=== PATIENT | female | born 1990 | race Caucasian/White ===

== ENCOUNTER 2019-02-18 16:15 | Emergency (ER) | payer SELFPAY ==
--- NOTE | 2019-02-18 16:47 | EDM.PDOC ---
ED HPI GENERAL MEDICAL PROBLEM - General Chief Complaint: Eye Problems Stated Complaint: BITE ON STOMACH, AND EYE COMPLAINTS Time Seen by Provider: 02/18/19 16:41 - History of Present Illness INITIAL COMMENTS - FREE TEXT/NARRATIVE: HISTORY AND PHYSICAL: History of present illness: Patient 28-year-old female presents with a concern of right eyelid swelling and an area of erythema on her stomach possibly due to insect bite. She denies fever chills nausea vomiting or other complaints Review of systems: As per history of present illness and below otherwise all systems reviewed and negative. Past medical history: As per history of present illness and as reviewed below otherwise noncontributory. Surgical history: As per history of present illness and as reviewed below otherwise noncontributory. Social history: No reported history of drug or alcohol abuse. Family history: As per history of present illness and as reviewed below otherwise noncontributory. Physical exam: HEENT: Atraumatic, normocephalic, pupils reactive, patient is known to have some swelling of her upper lid more medial aspect possible early hordeolum negative for conjunctival pallor or scleral icterus, mucous membranes moist, throat clear, neck supple, nontender, trachea midline. Lungs: Clear to auscultation, breath sounds equal bilaterally, chest nontender. Heart: S1S2, regular, negative for clicks, rubs, or JVD. Abdomen: Soft, nondistended, nontender. Negative for masses or hepatosplenomegaly. Negative for costovertebral tenderness. Patient is an area approximately 4 cm of superficial erythema and warmth infraumbilical region of her abdomen no fluctuance no induration Pelvis: Stable nontender. Genitourinary: Deferred. Rectal: Deferred. Extremities: Atraumatic, negative for cords or calf pain. Neurovascular unremarkable. Neuro: Awake, alert, oriented. Cranial nerves II through XII unremarkable. Cerebellum unremarkable. Motor and sensory unremarkable throughout. Exam nonfocal. Diagnostics: None Therapeutics: None Impression: #1 blepharitis rule out early hordeolum #2 superficial cellulitis abdominal wall Definitive disposition and diagnosis as appropriate pending reevaluation and review of above. Right Eye Pain Score (Numeric/FACES): 4 - Related Data Allergies Allergy/AdvReac Type Severity Reaction Status Date / Time No Known Allergies Allergy Verified 02/18/19 16:34 Home Meds: Home Meds . [No Known Home Meds] 02/18/19 [History] Past Medical History - Past Health History Medical/Surgical History: Denies Medical/Surgical History - Infectious Disease History Infectious Disease History: Reports: Chicken Pox Social & Family History - Family History Family Medical History: Noncontributory - Tobacco Use Smoking Status *Q: Current Every Day Smoker Years of Tobacco use: 10 Packs/Tins Daily: 0.5 - Recreational Drug Use Recreational Drug Use: Yes Drug Use in Last 12 Months: Yes Recreational Drug Type: Reports: Marijuana/Hashish Recreational Drug Use Frequency: Daily ED ROS GENERAL - Review of Systems Review Of Systems: ROS reveals no pertinent complaints other than HPI. ED EXAM GENERAL W FULL EYE - Physical Exam Exam: See Below (See dictation) Course - Vital Signs Last Recorded V/S: Last Vital Signs Temp 36.4 C 02/18/19 16:30 Pulse 119 H 02/18/19 16:30 Resp 18 02/18/19 16:30 BP 136/82 02/18/19 16:30 Pulse Ox 99 02/18/19 16:30 Departure - Departure Time of Disposition: 16:46 Disposition: Home, Self-Care 01 Condition: Good Clinical Impression: Blepharitis, Cellulitis - Discharge Information Referrals: PCP,Unknown [Primary Care Provider] - Additional Instructions: The following information is given to patients seen in the emergency department who are being discharged to home. This information is to outline your options for follow-up care. We provide all patients seen in our emergency department with a follow-up referral. The need for follow-up, as well as the timing and circumstances, are variable depending upon the specifics of your emergency department visit. If you don't have a primary care physician on staff, we will provide you with a referral. We always advise you to contact your personal physician following an emergency department visit to inform them of the circumstance of the visit and for follow-up with them and/or the need for any referrals to a consulting specialist. The emergency department will also refer you to a specialist when appropriate. This referral assures that you have the opportunity for followup care with a specialist. All of these measure are taken in an effort to provide you with optimal care, which includes your followup. Under all circumstances we always encourage you to contact your private physician who remains a resource for coordinating your care. When calling for followup care, please make the office aware that this follow-up is from your recent emergency room visit. If for any reason you are refused follow-up, please contact the [facility] emergency department at and asked to speak to the emergency department charge nurse. JEMAL [facility] [place] [id number] Erythromycin as prescribed Bactrim as prescribed follow-up primary medical doctor and/or clinic return as needed as discussed here
== END 2019-02-18 17:00 | disposition home or self-care (01) ==
LOC: MW.ED 16:15
DX: H01.001 Unspecified blepharitis right upper eyelid (principal); L03.311 Cellulitis of abdominal wall; F17.210 Nicotine dependence, cigarettes, uncomplicated
CPT/HCPCS: 99283

== ENCOUNTER 2019-02-22 11:09 | Inpatient (IN) | payer OTHER ==
[2019-02-22] MEDS ORDERED: Morphine 2 MG/ML Syringe IVPUSH ONE (11:29)
--- NOTE | 2019-02-22 11:32 | EDM.PDOC ---
ED HPI GENERAL MEDICAL PROBLEM - General Chief Complaint: Skin Complaint Stated Complaint: bite on stomach Time Seen by Provider: 02/22/19 11:30 Source of Information: Reports: Patient - History of Present Illness INITIAL COMMENTS - FREE TEXT/NARRATIVE: HISTORY AND PHYSICAL: History of present illness: [Patient presents with what she reports as a bug bite on her abdomen below her navel she was started on Bactrim double strength by mouth twice a day on Thursday as the lesion was quite small and has worsened to a cellulitis that includes approximately 1 ft. of abdominal wall there is induration around the small hole just below the umbilicus otherwise redness and tenderness I did delineate the lesion with a skin pen there is a focal area of induration around the central nidus approximately 2 inch in diameter the entire cellulitic lesion is 12 inches in diameter there is no fluctuance was able to express some bloody discharge however no exudates or did take a wound culture of this material No fever nausea vomiting chills sweats ] Review of systems: As per history of present illness and below otherwise all systems reviewed and negative. Past medical history: As per history of present illness and as reviewed below otherwise noncontributory. Surgical history: As per history of present illness and as reviewed below otherwise noncontributory. Social history: No reported history of drug or alcohol abuse. Family history: As per history of present illness and as reviewed below otherwise noncontributory. Physical exam: HEENT: Atraumatic, normocephalic, pupils reactive, negative for conjunctival pallor or scleral icterus, mucous membranes moist, throat clear, neck supple, nontender, trachea midline. Lungs: Clear to auscultation, breath sounds equal bilaterally, chest nontender. Heart: S1S2, regular, negative for clicks, rubs, or JVD. Abdomen: Soft, nondistended, nontender. Negative for masses or hepatosplenomegaly. Negative for costovertebral tenderness. Pelvis: Stable nontender. Genitourinary: Deferred. Rectal: Deferred. Extremities: Atraumatic, negative for cords or calf pain. Neurovascular unremarkable. Neuro: Awake, alert, oriented. Cranial nerves II through XII unremarkable. Cerebellum unremarkable. Motor and sensory unremarkable throughout. Exam nonfocal. Esha as per history of present illness Diagnostics: [ CBC CMP UA lactic acid whole blood, blood cultures 2 ] wound culture Therapeutics: [ vancomycin Cleocin ]Morphine Impression: [ cellulitis -abdomen Failed conservative management ] Definitive disposition and diagnosis as appropriate pending reevaluation and review of above. - Related Data Allergies Allergy/AdvReac Type Severity Reaction Status Date / Time No Known Allergies Allergy Verified 02/22/19 11:24 Past Medical History - Past Health History Medical/Surgical History: Denies Medical/Surgical History - Infectious Disease History Infectious Disease History: Reports: Chicken Pox Social & Family History - Family History Family Medical History: Noncontributory ED ROS GENERAL - Review of Systems Review Of Systems: See Below ED EXAM, SKIN/RASH Exam: See Below Course - Orders/Labs/Meds Orders: Active Orders 24 hr Category Date Time Status CBC WITH AUTO DIFF [HEME] Stat Lab 02/22/19 11:29 Ordered COMPREHENSIVE METABOLIC PN,CMP [CHEM] Stat Lab 02/22/19 11:29 Ordered CULTURE BLOOD [BC] Stat Lab 02/22/19 11:29 Ordered CULTURE BLOOD [BC] Stat Lab 02/22/19 11:29 Ordered LACTIC ACID,WHOLE BLOOD [BG] Stat Lab 02/22/19 11:29 Ordered Clindamycin Phosphate [Cleocin] 300 mg Med 02/22/19 11:29 Ordered Sodium Chloride 0.9% [Normal Saline] 50 ml IV ONETIME Morphine Med 02/22/19 11:29 Once 2 mg IVPUSH ONETIME ONE Sodium Chloride 0.9% [Normal Saline] 1,000 ml Med 02/22/19 11:30 Ordered IV STAT Vancomycin [Vancocin] 1 gm Med 02/22/19 11:29 Ordered Sodium Chloride 0.9% [Normal Saline] 250 ml IV ONETIME Blood Culture x2 Reflex Set [OM.PC] Stat Oth 02/22/19 11:29 Ordered Departure - Departure Time of Disposition: 11:32 Disposition: Admitted As Inpatient 64 Condition: Fair Clinical Impression: Cellulitis - Discharge Information Referrals: PCP,Unknown [Primary Care Provider] - - My Orders Last 24 Hours: My Active Orders 02/22/19 11:29 CBC WITH AUTO DIFF [HEME] Stat COMPREHENSIVE METABOLIC PN,CMP [CHEM] Stat CULTURE BLOOD [BC] Stat CULTURE BLOOD [BC] Stat LACTIC ACID,WHOLE BLOOD [BG] Stat Clindamycin Phosphate [Cleocin] 300 mg Sodium Chloride 0.9% [Normal Saline] 50 ml IV ONETIME Morphine 2 mg IVPUSH ONETIME ONE Vancomycin [Vancocin] 1 gm Sodium Chloride 0.9% [Normal Saline] 250 ml IV ONETIME Blood Culture x2 Reflex Set [OM.PC] Stat 02/22/19 11:30 Sodium Chloride 0.9% [Normal Saline] 1,000 ml IV STAT - Assessment/Plan Last 24 Hours: My Active Orders 02/22/19 11:29 CBC WITH AUTO DIFF [HEME] Stat COMPREHENSIVE METABOLIC PN,CMP [CHEM] Stat CULTURE BLOOD [BC] Stat CULTURE BLOOD [BC] Stat LACTIC ACID,WHOLE BLOOD [BG] Stat Clindamycin Phosphate [Cleocin] 300 mg Sodium Chloride 0.9% [Normal Saline] 50 ml IV ONETIME Morphine 2 mg IVPUSH ONETIME ONE Vancomycin [Vancocin] 1 gm Sodium Chloride 0.9% [Normal Saline] 250 ml IV ONETIME Blood Culture x2 Reflex Set [OM.PC] Stat 02/22/19 11:30 Sodium Chloride 0.9% [Normal Saline] 1,000 ml IV STAT
[2019-02-22] MEDS ORDERED: Clindamycin Phosphate in D5W 300 MG in Premix Bag 1 BAG IV ONE ×2 (11:45)
[2019-02-22] MEDS: Sodium Chloride 0.9% 1,000 ML IV SCH ×2 (12:05→23:43)
[2019-02-22 12:46] LABS: CHLORIDE,CL 104 mmol/L (98-107); SODIUM,NA 138 mmol/L (136-145)
[2019-02-22] MEDS ORDERED: Ondansetron 4 MG/2 ML SDV IVPUSH PRN (13:51)
[2019-02-22] MEDS: oxyCODONE 5 MG Tab PO PRN ×2 (14:28→20:28)
[2019-02-22] MEDS: Piperacillin/Tazobactam 3.375 GM in Sodium Chloride 0.9% 50 ML IV SCH ×2 (14:30→20:29)
[2019-02-22] MEDS: Enoxaparin 40 MG/0.4 ML Syringe SUBCUT SCH (14:32)
--- NOTE | 2019-02-22 14:35 | PCM.HP ---
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 She reports she was seen on Thursday in the ED and placed on Bactrim for cellulitis, she reports it has not gotten any better and has only worsened. She reports the pain is nearly 10/10 to abdominal fold. She states this started with a small region just underneath her umbilicus that was red and tender. No trauma or injury. No obvious bite. She reports some blood drainage started from it today. Reports fevers and chills at home. No chest pain or SOB. No urinary concerns or black or bloody BMs. She reports she smokes 1/2 ppd of cigarettes, smokes marijuana daily and rare drinks alcohol. In the ED leukocytosis noted at 14,100, lactate 1.6, Na 138, K+ 5.1 BC obtained as well as wound cultures. She was treated with Vancomycin and Clindamycin in the ED along with IVFs. She was admitted inpatient secondary to abdominal cellulitis and possible abscess. lower abd Pain Score (Numeric/FACES): 9 - Related Data Allergies/Adverse Reactions: Allergies Allergy/AdvReac Type Severity Reaction Status Date / Time No Known Allergies Allergy Verified 02/22/19 11:24 Past Medical History - Past Health History Medical/Surgical History: Denies Medical/Surgical History Cardiovascular History: Reports: None. Denies: Afib, Blood Clots/VTE/DVT, High Cholesterol, Hypertension Respiratory History: Reports: None. Denies: Asthma Gastrointestinal History: Reports: None. Denies: GERD Musculoskeletal History: Reports: None Neurological History: Reports: None Psychiatric History: Reports: None Endocrine/Metabolic History: Reports: Obesity/BMI 30+. Denies: Diabetes, Type II, Hypothyroidism - Infectious Disease History Infectious Disease History: Reports: Chicken Pox, MRSA Social & Family History - Family History Family Medical History: Noncontributory - Tobacco Use Smoking Status *Q: Current Every Day Smoker Years of Tobacco use: 10 Packs/Tins Daily: 0.5 - Caffeine Use Caffeine Use: Reports: Coffee, Soda Caffeine Use Comment: 2-3 cans of soda/day - Alcohol Use Alcohol Use Frequency: Rarely - Recreational Drug Use Recreational Drug Use: Yes Drug Use in Last 12 Months: Yes Recreational Drug Type: Reports: Marijuana/Hashish Recreational Drug Use Frequency: Daily H&P Review of Systems - Review of Systems: Review Of Systems: See Below General: Reports: Fever, Chills, Malaise HEENT: Denies: Headaches, Sinus Congestion Pulmonary: Reports: No Symptoms. Denies: Shortness of Breath, Cough, Sputum Cardiovascular: Reports: No Symptoms. Denies: Chest Pain, Edema Gastrointestinal: Reports: No Symptoms. Denies: Abdominal Pain, Black Stool, Bloody Stool, Constipation, Diarrhea Genitourinary: Reports: No Symptoms. Denies: Dysuria, Frequency, Burning Musculoskeletal: Reports: No Symptoms. Denies: Neck Pain Skin: Reports: Erythema (abdominal fold) Psychiatric: Reports: No Symptoms Hematologic/Lymphatic: Reports: No Symptoms Immunologic: Reports: No Symptoms Exam - Exam Exam: See Below - Vital Signs Vital Signs: Last Vital Signs Temp 101 F H 02/22/19 12:38 Pulse 91 02/22/19 12:38 Resp 24 H 02/22/19 12:38 BP 140/67 02/22/19 12:38 Pulse Ox 100 02/22/19 13:49 Weight: 111.629 kg - Exam General: Alert, Oriented, Cooperative HEENT: Conjunctiva Clear, Mucosa Moist & [place], Posterior Pharynx Clear, Other ( multiple broken, decaying teeth. ) Neck: Supple Lungs: Clear to Auscultation, Normal Respiratory Effort Cardiovascular: Regular Rate, Regular Rhythm, Normal S1, Normal S2 GI/Abdominal Exam: Normal Bowel Sounds, Soft, Non-Tender (lower abdominal fold very tender) Extremities: Normal Inspection, Normal Range of Motion, Non-Tender, No Pedal Edema, Normal Capillary Refill Skin: Wound (Just below mbilius, small area of fluctuance noted, with surround induration of approximately 2 in. dusky, center noted. Old blood drainage noted , unable to express further drainage. Lower abdominal fold is erythematous and hot to touch.) Neuro Extensive - Mental Status: Alert, Oriented x3, Normal Mood/Affect Neuro Extensive - Motor, Sensory, Reflexes: CN II-XII Intact Psychiatric: Alert, Normal Affect, Normal Mood - Patient Data Lab Results Last 24 hrs: Laboratory Results - last 24 hr 02/22/19 02/22/19 02/22/19 Range/Units 11:56 12:06 12:06 WBC 14.10 H (4.0-11.0) K/uL RBC 4.64 (4.30-5.90) M/uL Hgb 14.3 (12.0-16.0) g/dL Hct 42.1 (36.0-46.0) % MCV 90.7 (80.0-98.0) fL MCH 30.8 (27.0-32.0) pg MCHC 34.0 (31.0-37.0) g/dL RDW Std Deviation 43.0 (28.0-62.0) fl RDW Coeff of Boby 13 (11.0-15.0) % Plt Count 276 (150-400) K/uL MPV 10.90 (7.40-12.00) fL Neut % (Auto) 70.4 (48.0-80.0) % Lymph % (Auto) 14.0 L (16.0-40.0) % [place] % (Auto) 14.7 (0.0-15.0) % Eos % (Auto) 0.8 (0.0-7.0) % Baso % (Auto) 0.1 (0.0-1.5) % Neut # (Auto) 9.9 H (1.4-5.7) K/uL Lymph # (Auto) 2.0 (0.6-2.4) K/uL [place] # (Auto) 2.1 H (0.0-0.8) K/uL Eos # (Auto) 0.1 (0.0-0.7) K/uL Baso # (Auto) 0.0 (0.0-0.1) K/uL Nucleated RBC % 0.0 /100WBC Nucleated RBCs # 0 K/uL Lactate 1.6 (0.20-2.00) mmol/L Sodium 138 (136-145) mmol/L Potassium 5.1 (3.5-5.1) mmol/L Chloride 104 (98-107) mmol/L Carbon Dioxide 22.6 (21.0-32.0) mmol/L BUN 7 (7.0-18.0) mg/dL Creatinine 0.9 (0.6-1.0) mg/dL Est Cr Clr Drug Dosing 75.61 mL/min Estimated GFR (MDRD) > 60.0 ml/min Glucose 97 (74-106) mg/dL Calcium 8.7 (8.5-10.1) mg/dL Total Bilirubin 0.4 (0.2-1.0) mg/dL AST 32 (15-37) IU/L ALT 63 (14-63) IU/L Alkaline Phosphatase 68 (46-116) U/L Total Protein 6.9 (6.4-8.2) g/dL Albumin 3.1 L (3.4-5.0) g/dL Globulin 3.8 (2.6-4.0) g/dL Albumin/Globulin Ratio 0.8 L (0.9-1.6) Result Diagrams: 02/22/19 12:06 02/22/19 12:06 Madhu Results Last 24 hrs: Microbiology 02/22/19 12:06 Anaerobic Blood Culture - Final Blood - Venous - Lab Draw 02/22/19 11:56 Anaerobic Blood Culture - Final Blood - Venous *Q Meaningful Use (ADM) - VTE Risk Assess *Q Each Risk Factor Represents 1 Point: Obesity ( BMI > 25 kg/m2) Total Score 1 Point Risk Factors: 1 Each Risk Factor Represents 2 Points: None Total Score 2 Point Risk Factors: 0 Each Risk Factor Represents 3 Points: None Total Score 3 Point Risk Factors: 0 Each Risk Factor Represents 5 Points: None Total Score 5 Point Risk Factors: 0 Venous Thromboembolism Risk Factor Score *Q: 1 - Problem List (1) Cellulitis SNOMED Code(s): 383790869 ICD Code: L03.90 - CELLULITIS, UNSPECIFIED Status: Acute Current Visit: Yes Qualifiers: Site of cellulitis: trunk Site of cellulitis of trunk: abdominal wall Qualified Code(s): L03.311 - Cellulitis of abdominal wall (2) Tobacco abuse SNOMED Code(s): 586071946 ICD Code: Z72.0 - TOBACCO USE Status: Chronic Current Visit: Yes (3) Obesity SNOMED Code(s): 461446742, 469843975 ICD Code: E66.9 - OBESITY, UNSPECIFIED Status: Chronic Current Visit: Yes Problem List Initiated/Reviewed/Updated: Yes Orders Last 24hrs: Active Orders 24 hr Category Date Time Status Admission Status [Patient Status] [ADT] Stat ADT 02/22/19 11:36 Active Intake and Output [RC] Q12H Care 02/22/19 13:51 Active Notify Provider Consults [RC] ASDIRECTED Care 02/22/19 14:21 Ordered Oxygen Therapy [RC] PRN Care 02/22/19 13:44 Active Up With Assistance [RC] ASDIRECTED Care 02/22/19 13:49 Active VTE/DVT Education [RC] PER UNIT ROUTINE Care 02/22/19 13:44 Active Vital Signs [RC] Q4H Care 02/22/19 13:44 Active Consult to Physician [CONS] Routine Cons 02/22/19 14:21 Ordered Regular Diet [DIET] Diet 02/22/19 Lunch Active BASIC METABOLIC PANEL,BMP [CHEM] AM Lab 02/23/19 05:11 Ordered BASIC METABOLIC PANEL,BMP [CHEM] AM Lab 02/24/19 05:11 Ordered BASIC METABOLIC PANEL,BMP [CHEM] AM Lab 02/25/19 05:11 Ordered CBC WITH AUTO DIFF [HEME] AM Lab 02/23/19 05:11 Ordered CBC WITH AUTO DIFF [HEME] AM Lab 02/24/19 05:11 Ordered CBC WITH AUTO DIFF [HEME] AM Lab 02/25/19 05:11 Ordered CULTURE BLOOD [BC] Stat Lab 02/22/19 11:56 Results CULTURE BLOOD [BC] Stat Lab 02/22/19 12:06 Results CULTURE WOUND [RM] Stat Lab 02/22/19 11:51 Received Acetaminophen [Tylenol] Med 02/22/19 13:49 Active 650 mg PO Q4H PRN Enoxaparin [Lovenox] Med 02/22/19 14:00 Active 40 mg SUBCUT Q24H Morphine Med 02/22/19 13:49 Active 2 mg IVPUSH Q2H PRN Ondansetron [Zofran] Med 02/22/19 13:51 Active 4 mg IVPUSH Q4H PRN Pharmacy to Dose - Vancomycin Med 02/22/19 14:00 Active 1 dose .XX ASDIRECTED Piperacillin/Tazobactam [Piperacil-Tazobact] 3.375 gm Med 02/22/19 14:00 Active Sodium Chloride 0.9% [Normal Saline] 50 ml IV Q6H Sodium Chloride 0.9% [Normal Saline] 1,000 ml Med 02/22/19 11:30 Active IV STAT oxyCODONE Med 02/22/19 13:49 Active 5 mg PO Q4H PRN Blood Culture x2 Reflex Set [OM.PC] Stat Oth 02/22/19 11:29 Ordered Resuscitation Status Routine Resus Stat 02/22/19 13:44 Ordered Medication Orders Acetaminophen (Tylenol) 650 mg PO Q4H PRN PRN Reason: Pain (Mild 1-3)/fever Enoxaparin Sodium (Lovenox) 40 mg SUBCUT Q24H [facility] Sodium Chloride (Normal Saline) 1,000 mls @ 125 mls/hr IV STAT [facility] Last Admin: 02/22/19 12:05 Dose: 125 mls/hr Piperacillin Sod/Tazobactam (Sod 3.375 gm/ Sodium Chloride) 50 mls @ 100 mls/ hr IV Q6H [facility] Morphine Sulfate (Morphine) 2 mg IVPUSH Q2H PRN PRN Reason: Pain (severe 7-10) Ondansetron HCl (Zofran) 4 mg IVPUSH Q4H PRN PRN Reason: Nausea Oxycodone HCl (Oxycodone) 5 mg PO Q4H PRN PRN Reason: Pain (moderate 4-6) Vancomycin HCl (Pharmacy To Dose - Vancomycin) 1 dose .XX ASDIRECTED [facility] Assessment/Plan Comment:: This 28 year old female admitted with cellulitis of abdominal fold 1. Cellulitis: Will Continue Vancomycin and Zosyn for now. Consult Dr Short for consultation, consider panniculitis. Will obtain CT of abdomen and pelvis with contrast. BC and wound culture obtained. Morphine and oxycodone for pain control PRN. Continue IVFs. VTE prophylaxis: Lovenox. Dispo: 2-3 days pending improvement. <Santana Lobo M - Last Filed: 02/22/19 17:25> H&P History of Present Illness - General Admit Problem/Dx: Admission Diagnosis/Problem Admission Diagnosis/Problem Cellulitis I have seen and examined to patient independently of Lizzette Walker CNP. I have discussed the case for care of this patient with her. I have reviewed and approve of the plan of care as outlined by JEANETTE. Please see orders. Exam - Vital Signs Vital Signs: Last Vital Signs Temp 38.2 C H 02/22/19 16:00 Pulse 102 H 02/22/19 16:00 Resp 16 02/22/19 16:00 BP 115/60 02/22/19 16:00 Pulse Ox 97 02/22/19 16:00 - Patient Data Lab Results Last 24 hrs: Laboratory Results - last 24 hr 02/22/19 02/22/19 02/22/19 Range/Units 11:56 12:06 12:06 WBC 14.10 H (4.0-11.0) K/uL RBC 4.64 (4.30-5.90) M/uL Hgb 14.3 (12.0-16.0) g/dL Hct 42.1 (36.0-46.0) % MCV 90.7 (80.0-98.0) fL MCH 30.8 (27.0-32.0) pg MCHC 34.0 (31.0-37.0) g/dL RDW Std Deviation 43.0 (28.0-62.0) fl RDW Coeff of Boby 13 (11.0-15.0) % Plt Count 276 (150-400) K/uL MPV 10.90 (7.40-12.00) fL Neut % (Auto) 70.4 (48.0-80.0) % Lymph % (Auto) 14.0 L (16.0-40.0) % [place] % (Auto) 14.7 (0.0-15.0) % Eos % (Auto) 0.8 (0.0-7.0) % Baso % (Auto) 0.1 (0.0-1.5) % Neut # (Auto) 9.9 H (1.4-5.7) K/uL Lymph # (Auto) 2.0 (0.6-2.4) K/uL [place] # (Auto) 2.1 H (0.0-0.8) K/uL Eos # (Auto) 0.1 (0.0-0.7) K/uL Baso # (Auto) 0.0 (0.0-0.1) K/uL Nucleated RBC % 0.0 /100WBC Nucleated RBCs # 0 K/uL Lactate 1.6 (0.20-2.00) mmol/L Sodium 138 (136-145) mmol/L Potassium 5.1 (3.5-5.1) mmol/L Chloride 104 (98-107) mmol/L Carbon Dioxide 22.6 (21.0-32.0) mmol/L BUN 7 (7.0-18.0) mg/dL Creatinine 0.9 (0.6-1.0) mg/dL Est Cr Clr Drug Dosing 75.61 mL/min Estimated GFR (MDRD) > 60.0 ml/min Glucose 97 (74-106) mg/dL Calcium 8.7 (8.5-10.1) mg/dL Total Bilirubin 0.4 (0.2-1.0) mg/dL AST 32 (15-37) IU/L ALT 63 (14-63) IU/L Alkaline Phosphatase 68 (46-116) U/L Total Protein 6.9 (6.4-8.2) g/dL Albumin 3.1 L (3.4-5.0) g/dL Globulin 3.8 (2.6-4.0) g/dL Albumin/Globulin Ratio 0.8 L (0.9-1.6) HCG, Qual (NEG) 02/22/19 Range/Units 12:06 WBC (4.0-11.0) K/uL RBC (4.30-5.90) M/uL Hgb (12.0-16.0) g/dL Hct (36.0-46.0) % MCV (80.0-98.0) fL MCH (27.0-32.0) pg MCHC (31.0-37.0) g/dL RDW Std Deviation (28.0-62.0) fl RDW Coeff of Boby (11.0-15.0) % Plt Count (150-400) K/uL MPV (7.40-12.00) fL Neut % (Auto) (48.0-80.0) % Lymph % (Auto) (16.0-40.0) % [place] % (Auto) (0.0-15.0) % Eos % (Auto) (0.0-7.0) % Baso % (Auto) (0.0-1.5) % Neut # (Auto) (1.4-5.7) K/uL Lymph # (Auto) (0.6-2.4) K/uL [place] # (Auto) (0.0-0.8) K/uL Eos # (Auto) (0.0-0.7) K/uL Baso # (Auto) (0.0-0.1) K/uL Nucleated RBC % /100WBC Nucleated RBCs # K/uL Lactate (0.20-2.00) mmol/L Sodium (136-145) mmol/L Potassium (3.5-5.1) mmol/L Chloride (98-107) mmol/L Carbon Dioxide (21.0-32.0) mmol/L BUN (7.0-18.0) mg/dL Creatinine (0.6-1.0) mg/dL Est Cr Clr Drug Dosing mL/min Estimated GFR (MDRD) ml/min Glucose (74-106) mg/dL Calcium (8.5-10.1) mg/dL Total Bilirubin (0.2-1.0) mg/dL AST (15-37) IU/L ALT (14-63) IU/L Alkaline Phosphatase (46-116) U/L Total Protein (6.4-8.2) g/dL Albumin (3.4-5.0) g/dL Globulin (2.6-4.0) g/dL Albumin/Globulin Ratio (0.9-1.6) HCG, Qual NEGATIVE (NEG) Result Diagrams: 02/22/19 12:06 02/22/19 12:06 Madhu Results Last 24 hrs: Microbiology 02/22/19 12:06 Anaerobic Blood Culture - Final Blood - Venous - Lab Draw 02/22/19 11:56 Anaerobic Blood Culture - Final Blood - Venous Orders Last 24hrs: Active Orders 24 hr Category Date Time Status Admission Status [Patient Status] [ADT] Stat ADT 02/22/19 11:36 Active Intake and Output [RC] Q12H Care 02/22/19 13:51 Active Notify Provider Consults [RC] ASDIRECTED Care 02/22/19 14:21 Active Oxygen Therapy [RC] PRN Care 02/22/19 13:44 Active Up With Assistance [RC] ASDIRECTED Care 02/22/19 13:49 Active VTE/DVT Education [RC] PER UNIT ROUTINE Care 02/22/19 13:44 Active Vital Signs [RC] Q4H Care 02/22/19 13:44 Active Consult to Physician [CONS] Routine Cons 02/22/19 14:21 Active Regular Diet [DIET] Diet 02/22/19 Lunch Active Abdomen Pelvis w Cont [CT] Urgent Exams 02/22/19 14:50 Ordered BASIC METABOLIC PANEL,BMP [CHEM] AM Lab 02/23/19 05:11 Ordered BASIC METABOLIC PANEL,BMP [CHEM] AM Lab 02/24/19 05:11 Ordered BASIC METABOLIC PANEL,BMP [CHEM] AM Lab 02/25/19 05:11 Ordered CBC WITH AUTO DIFF [HEME] AM Lab 02/23/19 05:11 Ordered CBC WITH AUTO DIFF [HEME] AM Lab 02/24/19 05:11 Ordered CBC WITH AUTO DIFF [HEME] AM Lab 02/25/19 05:11 Ordered CULTURE BLOOD [BC] Stat Lab 02/22/19 11:56 Results CULTURE BLOOD [BC] Stat Lab 02/22/19 12:06 Results CULTURE WOUND [RM] Stat Lab 02/22/19 11:51 Received VANCOMYCIN TROUGH [CHEM] Routine Lab 02/23/19 11:00 Ordered Acetaminophen [Tylenol] Med 02/22/19 13:49 Active 650 mg PO Q4H PRN Enoxaparin [Lovenox] Med 02/22/19 14:00 Active 40 mg SUBCUT Q24H Morphine Med 02/22/19 13:49 Active 2 mg IVPUSH Q2H PRN Ondansetron [Zofran] Med 02/22/19 13:51 Active 4 mg IVPUSH Q4H PRN Pharmacy to Dose - Vancomycin Med 02/22/19 14:00 Active 1 dose .XX ASDIRECTED Piperacillin/Tazobactam [Piperacil-Tazobact] 3.375 gm Med 02/22/19 14:00 Active Sodium Chloride 0.9% [Normal Saline] 50 ml IV Q6H Sodium Chloride 0.9% [Normal Saline] 1,000 ml Med 02/22/19 11:30 Active IV STAT Vancomycin 1.5 gm Med 02/22/19 19:30 Active Sodium Chloride 0.9% [Normal Saline] 500 ml IV Q8H oxyCODONE Med 02/22/19 13:49 Active 5 mg PO Q4H PRN Blood Culture x2 Reflex Set [OM.PC] Stat Oth 02/22/19 11:29 Ordered Resuscitation Status Routine Resus Stat 02/22/19 13:44 Ordered Medication Orders Acetaminophen (Tylenol) 650 mg PO Q4H PRN PRN Reason: Pain (Mild 1-3)/fever Enoxaparin Sodium (Lovenox) 40 mg SUBCUT Q24H [facility] Last Admin: 02/22/19 14:32 Dose: 40 mg Sodium Chloride (Normal Saline) 1,000 mls @ 125 mls/hr IV STAT [facility] Last Admin: 02/22/19 12:05 Dose: 125 mls/hr Piperacillin Sod/Tazobactam (Sod 3.375 gm/ Sodium Chloride) 50 mls @ 100 mls/ hr IV Q6H [facility] Last Admin: 02/22/19 14:30 Dose: 100 mls/hr Vancomycin HCl 1.5 gm/ Sodium (Chloride) 500 mls @ 250 mls/hr IV Q8H [facility] Morphine Sulfate (Morphine) 2 mg IVPUSH Q2H PRN PRN Reason: Pain (severe 7-10) Ondansetron HCl (Zofran) 4 mg IVPUSH Q4H PRN PRN Reason: Nausea Oxycodone HCl (Oxycodone) 5 mg PO Q4H PRN PRN Reason: Pain (moderate 4-6) Last Admin: 02/22/19 14:28 Dose: 5 mg Vancomycin HCl (Pharmacy To Dose - Vancomycin) 1 dose .XX ASDIRECTED [facility]
[2019-02-22] MEDS ORDERED: Iopamidol 755 MG/ML 500 ML Multipack Bottle IVPUSH STA (17:24)
[2019-02-22] MEDS: Morphine 2 MG/ML Syringe IVPUSH PRN ×3 (17:41→23:40)
--- NOTE | 2019-02-22 18:02 | PCM.CONS ---
H&P History of Present Illness - General Date of Service: 02/22/19 Admit Problem/Dx: Admission Diagnosis/Problem Admission Diagnosis/Problem Cellulitis I have seen and examined to patient independently of Lizzette Walker CNP. I have discussed the case for care of this patient with her. I have reviewed and approve of the plan of care as outlined by JEANETTE. Please see orders. Source of Information: Patient History Limitations: Reports: No Limitations - History of Present Illness Initial Comments - Free Text/Narative: 28 year old female who presents with abdominal wall cellulitis and abscess. She first developed redness around the wound on . And then progressively got worse. She was seen in the ER and placed on Bactrim. Despite this the redness swelling warmth and tenderness became worse. She started having a small amount of drainage from the lesion. She has a past medical history significant for MRSA infection of the axilla. She denies drug use other than daily marijuana smoking. She smokes half a pack a day of cigarettes. She is a low-grade fever and a mildly elevated heart rate. Her white blood cell count on admission was 14,000. She she was placed on broad-spectrum antibiotics including vancomycin, Zosyn, and clindamycin. She had a CT the abdomen pelvis which shows cellulitis and possible underlying abscess however this is on personal review and I'm waiting the final radiologist's impression. lower abd Pain Score (Numeric/FACES): 9 - Related Data Allergies/Adverse Reactions: Allergies Allergy/AdvReac Type Severity Reaction Status Date / Time No Known Allergies Allergy Verified 02/22/19 11:24 Past Medical History - Past Health History Medical/Surgical History: Denies Medical/Surgical History Cardiovascular History: Reports: None. Denies: Afib, Blood Clots/VTE/DVT, High Cholesterol, Hypertension Respiratory History: Reports: None. Denies: Asthma Gastrointestinal History: Reports: None. Denies: GERD Musculoskeletal History: Reports: None Neurological History: Reports: None Psychiatric History: Reports: None Endocrine/Metabolic History: Reports: Obesity/BMI 30+. Denies: Diabetes, Type II, Hypothyroidism - Infectious Disease History Infectious Disease History: Reports: Chicken Pox, MRSA Social & Family History - Family History Family Medical History: Noncontributory - Tobacco Use Smoking Status *Q: Current Every Day Smoker Years of Tobacco use: 10 Packs/Tins Daily: 0.5 - Caffeine Use Caffeine Use: Reports: Coffee, Soda Caffeine Use Comment: 2-3 cans of soda/day - Recreational Drug Use Recreational Drug Use: Yes Drug Use in Last 12 Months: Yes Recreational Drug Type: Reports: Marijuana/Hashish Recreational Drug Use Frequency: Daily H&P Review of Systems - Review of Systems: Review Of Systems: ROS reveals no pertinent complaints other than HPI. Exam - Exam Exam: See Below - Vital Signs Vital Signs: Last Vital Signs Temp 38.2 C H 02/22/19 16:00 Pulse 102 H 02/22/19 16:00 Resp 16 02/22/19 16:00 BP 115/60 02/22/19 16:00 Pulse Ox 97 02/22/19 16:00 Weight: 111.629 kg - Exam Quality Assessment: Supplemental Oxygen General: Alert, Oriented HEENT: Conjunctiva Clear, Mucosa Moist & [place], Posterior Pharynx Clear Lungs: Normal Respiratory Effort Cardiovascular: Regular Rate GI/Abdominal Exam: Soft, Other (Warmth tenderness and swelling extending from a lesion just below the umbilicus on the abdominal wall. This area is fluctuant with some dusky tissue overlying it. The area of fluctuance is ~ 1cm) - Patient Data Lab Results Last 24 hrs: Laboratory Results - last 24 hr 02/22/19 02/22/19 02/22/19 Range/Units 11:56 12:06 12:06 WBC 14.10 H (4.0-11.0) K/uL RBC 4.64 (4.30-5.90) M/uL Hgb 14.3 (12.0-16.0) g/dL Hct 42.1 (36.0-46.0) % MCV 90.7 (80.0-98.0) fL MCH 30.8 (27.0-32.0) pg MCHC 34.0 (31.0-37.0) g/dL RDW Std Deviation 43.0 (28.0-62.0) fl RDW Coeff of Boby 13 (11.0-15.0) % Plt Count 276 (150-400) K/uL MPV 10.90 (7.40-12.00) fL Neut % (Auto) 70.4 (48.0-80.0) % Lymph % (Auto) 14.0 L (16.0-40.0) % [place] % (Auto) 14.7 (0.0-15.0) % Eos % (Auto) 0.8 (0.0-7.0) % Baso % (Auto) 0.1 (0.0-1.5) % Neut # (Auto) 9.9 H (1.4-5.7) K/uL Lymph # (Auto) 2.0 (0.6-2.4) K/uL [place] # (Auto) 2.1 H (0.0-0.8) K/uL Eos # (Auto) 0.1 (0.0-0.7) K/uL Baso # (Auto) 0.0 (0.0-0.1) K/uL Nucleated RBC % 0.0 /100WBC Nucleated RBCs # 0 K/uL Lactate 1.6 (0.20-2.00) mmol/L Sodium 138 (136-145) mmol/L Potassium 5.1 (3.5-5.1) mmol/L Chloride 104 (98-107) mmol/L Carbon Dioxide 22.6 (21.0-32.0) mmol/L BUN 7 (7.0-18.0) mg/dL Creatinine 0.9 (0.6-1.0) mg/dL Est Cr Clr Drug Dosing 75.61 mL/min Estimated GFR (MDRD) > 60.0 ml/min Glucose 97 (74-106) mg/dL Calcium 8.7 (8.5-10.1) mg/dL Total Bilirubin 0.4 (0.2-1.0) mg/dL AST 32 (15-37) IU/L ALT 63 (14-63) IU/L Alkaline Phosphatase 68 (46-116) U/L Total Protein 6.9 (6.4-8.2) g/dL Albumin 3.1 L (3.4-5.0) g/dL Globulin 3.8 (2.6-4.0) g/dL Albumin/Globulin Ratio 0.8 L (0.9-1.6) HCG, Qual (NEG) 02/22/19 Range/Units 12:06 WBC (4.0-11.0) K/uL RBC (4.30-5.90) M/uL Hgb (12.0-16.0) g/dL Hct (36.0-46.0) % MCV (80.0-98.0) fL MCH (27.0-32.0) pg MCHC (31.0-37.0) g/dL RDW Std Deviation (28.0-62.0) fl RDW Coeff of Boby (11.0-15.0) % Plt Count (150-400) K/uL MPV (7.40-12.00) fL Neut % (Auto) (48.0-80.0) % Lymph % (Auto) (16.0-40.0) % [place] % (Auto) (0.0-15.0) % Eos % (Auto) (0.0-7.0) % Baso % (Auto) (0.0-1.5) % Neut # (Auto) (1.4-5.7) K/uL Lymph # (Auto) (0.6-2.4) K/uL [place] # (Auto) (0.0-0.8) K/uL Eos # (Auto) (0.0-0.7) K/uL Baso # (Auto) (0.0-0.1) K/uL Nucleated RBC % /100WBC Nucleated RBCs # K/uL Lactate (0.20-2.00) mmol/L Sodium (136-145) mmol/L Potassium (3.5-5.1) mmol/L Chloride (98-107) mmol/L Carbon Dioxide (21.0-32.0) mmol/L BUN (7.0-18.0) mg/dL Creatinine (0.6-1.0) mg/dL Est Cr Clr Drug Dosing mL/min Estimated GFR (MDRD) ml/min Glucose (74-106) mg/dL Calcium (8.5-10.1) mg/dL Total Bilirubin (0.2-1.0) mg/dL AST (15-37) IU/L ALT (14-63) IU/L Alkaline Phosphatase (46-116) U/L Total Protein (6.4-8.2) g/dL Albumin (3.4-5.0) g/dL Globulin (2.6-4.0) g/dL Albumin/Globulin Ratio (0.9-1.6) HCG, Qual NEGATIVE (NEG) Result Diagrams: 02/22/19 12:06 02/22/19 12:06 Madhu Results Last 24 hrs: Microbiology 02/22/19 12:06 Anaerobic Blood Culture - Final Blood - Venous - Lab Draw 02/22/19 11:56 Anaerobic Blood Culture - Final Blood - Venous Consult PN Assessment/Plan (1) Cellulitis SNOMED Code(s): 866339277 Code(s): L03.90 - CELLULITIS, UNSPECIFIED Current Visit: Yes Qualifiers: Site of cellulitis: trunk Site of cellulitis of trunk: abdominal wall Qualified Code(s): L03.311 - Cellulitis of abdominal wall (2) Obesity SNOMED Code(s): 651823506, 373090488 Code(s): E66.9 - OBESITY, UNSPECIFIED Current Visit: Yes (3) Abscess SNOMED Code(s): 880154273 Code(s): L02.91 - CUTANEOUS ABSCESS, UNSPECIFIED Current Visit: Yes Problem List Initiated/Reviewed/Updated: Yes Plan: Given the depth of the abscess and the level of tenderness at the patient is having, I'll take her to the OR in the morning for an incision and drainage of this lesion. We discussed the procedure, expected perioperative course including the need for dressing changes, and risks including bleeding or infection. The patient verbalized understanding and wishes to proceed. If the final CT scan reading shows anything more concerning I will perform the incision and drainage tonight.
[2019-02-22] MEDS: Vancomycin 1.5 GM in Sodium Chloride 0.9% 500 ML IV SCH (18:29)
--- NOTE | 2019-02-22 18:34 | CT ---
INDICATION: Abdominal wall cellulitis TECHNIQUE: CT abdomen and pelvis acquired with IV contrast. 100 mL of Isovue 370 administered. COMPARISON: None available FINDINGS: Lower chest: Unremarkable. Liver: Unremarkable. Spleen: Unremarkable. Pancreas: Unremarkable. Gallbladder and bile ducts: Unremarkable. Adrenal glands: Unremarkable. Kidneys: Unremarkable. GI tract: Unremarkable. Appendix is normal. Vascular structures: Unremarkable. Lymph nodes: Borderline periportal and portacaval lymph nodes and shotty subcentimeter retroperitoneal lymph nodes, nonspecific. Miscellaneous: Apparent miniscule amount of posterior left adnexal fluid. No free air. Edema and induration in the anterior lower abdominal subcutaneous fat with areas of subcutaneous fluid/phlegmon and overlying cutaneous thickening. No discrete peripherally enhancing collection is identified at this time. A small fat containing paraumbilical hernia. Pelvic Organs: A peripherally enhancing left adnexal low-density structure consistent with a involuting physiologic follicle. No discrete uterine or bladder abnormality seen. Bones: Unremarkable for age. IMPRESSION: Edema and phlegmonous changes in the anterior lower abdominal wall subcutaneous fat consistent with cellulitis. No discrete peripherally enhancing collection is seen at this time. No evidence of an acute process within the abdomen or pelvis. Shotty upper abdominal and subcentimeter retroperitoneal lymph nodes, nonspecific. Dictated by Adolfo Figueroa MD @ 02/22/2019 6:29:16 PM Please note that all CT scans at this facility use dose modulation, iterative reconstruction, and/or weight-based dosing when appropriate to reduce radiation dose to as low as reasonably achievable. Dictated by: Adolfo Figueroa MD @ 02/22/2019 18:32:25 (Electronically Signed)
[2019-02-22] MEDS: Acetaminophen 325 MG Tab PO PRN (20:28)
[2019-02-23] MEDS: oxyCODONE 5 MG Tab PO PRN ×5 (00:32→22:43)
[2019-02-23] MEDS: Piperacillin/Tazobactam 3.375 GM in Sodium Chloride 0.9% 50 ML IV SCH ×4 (01:51→20:59)
[2019-02-23] MEDS: Morphine 2 MG/ML Syringe IVPUSH PRN ×6 (01:51→23:54)
[2019-02-23] MEDS: Vancomycin 1.5 GM in Sodium Chloride 0.9% 500 ML IV SCH ×3 (03:36→18:47)
[2019-02-23 06:04] LABS: CHLORIDE,CL 105 mmol/L (98-107); SODIUM,NA 137 mmol/L (136-145)
[2019-02-23] MEDS ORDERED: fentaNYL 100 MCG/2 ML SDV ONE (07:40)
[2019-02-23] MEDS ORDERED: Midazolam 1 MG/ML 2 ML SDV ONE (07:40)
[2019-02-23] MEDS ORDERED: Ondansetron 4 MG/2 ML SDV ONE (07:40)
[2019-02-23] MEDS ORDERED: Propofol 200 MG/20 ML SDV ONE (07:40)
[2019-02-23] MEDS ORDERED: Lidocaine 2% 5 ML SDV ONE (07:40)
--- NOTE | 2019-02-23 08:02 | PCM.PREANE ---
Preanesthetic Assessment - Anesthesia/Transfusion/Family Hx Anesthesia History: No Prior Anesthesia Transfusion History: No Prior Transfusion(s) Intubation History: Unknown - Review of Systems General: Fever, Fatigue, Malaise Pulmonary: No Symptoms Cardiovascular: No Symptoms Gastrointestinal: No Symptoms Neurological: No Symptoms Other: Reports: None - Physical Assessment O2 Sat by Pulse Oximetry: 97 Respiratory Rate: 16 Temperature: 100.5 F Vital Signs: Last Vital Signs Temp 99 F 02/23/19 03:39 Pulse 94 02/23/19 03:39 Resp 16 02/23/19 03:39 BP 104/62 02/23/19 03:39 Pulse Ox 97 02/23/19 03:39 Height: 5 ft 3 in Weight: 246 lb 1.6 oz ASA Class: 2 Mental Status: Alert & Oriented x3 Airway Class: Mallampati = 4 Dentition: Reports: Broken Tooth/Teeth, Missing Tooth/Teeth, Caries Thyro-Mental Finger Breadths: 3 Mouth Opening Finger Breadths: 3 ROM/Head Extension: Limited/Partial Lungs: Clear to Auscultation, Normal Respiratory Effort Cardiovascular: Regular Rate, Regular Rhythm - Lab Values: Laboratory Last Values WBC 13.21 K/uL (4.0-11.0) H 02/23/19 05:30 RBC 4.24 M/uL (4.30-5.90) L 02/23/19 05:30 Hgb 12.9 g/dL (12.0-16.0) 02/23/19 05:30 Hct 38.8 % (36.0-46.0) 02/23/19 05:30 MCV 91.5 fL (80.0-98.0) 02/23/19 05:30 MCH 30.4 pg (27.0-32.0) 02/23/19 05:30 MCHC 33.2 g/dL (31.0-37.0) 02/23/19 05:30 RDW Std Deviation 43.7 fl (28.0-62.0) 02/23/19 05:30 RDW Coeff of Boby 13 % (11.0-15.0) 02/23/19 05:30 Plt Count 245 K/uL (150-400) 02/23/19 05:30 MPV 10.60 fL (7.40-12.00) 02/23/19 05:30 Neut % (Auto) 70.8 % (48.0-80.0) 02/23/19 05:30 Lymph % (Auto) 15.5 % (16.0-40.0) L 02/23/19 05:30 [place] % (Auto) 12.6 % (0.0-15.0) 02/23/19 05:30 Eos % (Auto) 1.0 % (0.0-7.0) 02/23/19 05:30 Baso % (Auto) 0.1 % (0.0-1.5) 02/23/19 05:30 Neut # (Auto) 9.4 K/uL (1.4-5.7) H 02/23/19 05:30 Lymph # (Auto) 2.1 K/uL (0.6-2.4) 02/23/19 05:30 [place] # (Auto) 1.7 K/uL (0.0-0.8) H 02/23/19 05:30 Eos # (Auto) 0.1 K/uL (0.0-0.7) 02/23/19 05:30 Baso # (Auto) 0.0 K/uL (0.0-0.1) 02/23/19 05:30 Nucleated RBC % 0.0 /100WBC 02/23/19 05:30 Nucleated RBCs # 0 K/uL 02/23/19 05:30 Lactate 1.6 mmol/L (0.20-2.00) 02/22/19 11:56 Sodium 137 mmol/L (136-145) 02/23/19 05:30 Potassium 4.3 mmol/L (3.5-5.1) 02/23/19 05:30 Chloride 105 mmol/L (98-107) 02/23/19 05:30 Carbon Dioxide 24.7 mmol/L (21.0-32.0) 02/23/19 05:30 BUN 8 mg/dL (7.0-18.0) 02/23/19 05:30 Creatinine 0.9 mg/dL (0.6-1.0) 02/23/19 05:30 Est Cr Clr Drug Dosing 75.61 mL/min 02/23/19 05:30 Estimated GFR (MDRD) > 60.0 ml/min 02/23/19 05:30 Glucose 96 mg/dL (74-106) 02/23/19 05:30 Calcium 7.8 mg/dL (8.5-10.1) L 02/23/19 05:30 Total Bilirubin 0.4 mg/dL (0.2-1.0) 02/22/19 12:06 AST 32 IU/L (15-37) 02/22/19 12:06 ALT 63 IU/L (14-63) 02/22/19 12:06 Alkaline Phosphatase 68 U/L (46-116) 02/22/19 12:06 Total Protein 6.9 g/dL (6.4-8.2) 02/22/19 12:06 Albumin 3.1 g/dL (3.4-5.0) L 02/22/19 12:06 Globulin 3.8 g/dL (2.6-4.0) 02/22/19 12:06 Albumin/Globulin Ratio 0.8 (0.9-1.6) L 02/22/19 12:06 HCG, Qual NEGATIVE (NEG) 02/22/19 12:06 - Allergies Allergies/Adverse Reactions: Allergies Allergy/AdvReac Type Severity Reaction Status Date / Time No Known Allergies Allergy Verified 02/22/19 11:24 - Blood Blood Available: No Product(s) Available: None - Anesthesia Plan Free Text/Narrative:: GLMA vs GETT - Acknowledgements Anesthesia Type Planned: General Anesthesia Pt an Appropriate Candidate for the Planned Anesthesia: Yes Alternatives and Risks of Anesthesia Discussed w Pt/Guardian: Yes Pt/Guardian Understands and Agrees with Anesthesia Plan: Yes PreAnesthesia Questionnaire - Past Health History Medical/Surgical History: Denies Medical/Surgical History Cardiovascular History: Reports: None. Denies: Afib, Blood Clots/VTE/DVT, High Cholesterol, Hypertension Respiratory History: Reports: None. Denies: Asthma Gastrointestinal History: Reports: None, GERD (Pt states recently she has had some reflux, but denies any problems today) Musculoskeletal History: Reports: None Neurological History: Reports: None Psychiatric History: Reports: None Endocrine/Metabolic History: Reports: Obesity/BMI 30+. Denies: Diabetes, Type II, Hypothyroidism - Infectious Disease History Infectious Disease History: Reports: Chicken Pox, MRSA - SUBSTANCE USE Smoking Status *Q: Current Every Day Smoker Tobacco Use Within Last Twelve Months: Cigarettes (1/2 PPD) Recreational Drug Use History: Yes Recreational Drug Type: Reports: Marijuana/Hashish (1x/day - denies any hx of meth use, although teeth appear similar to "meth mouth" pt states due to poor dental hygine) - CURRENT (IN HOUSE) MEDS Current Meds: Current Medications Acetaminophen (Tylenol) 650 mg PO Q4H PRN PRN Reason: Pain (Mild 1-3)/fever Last Admin: 02/22/19 20:28 Dose: 650 mg Enoxaparin Sodium (Lovenox) 40 mg SUBCUT Q24H [facility] Last Admin: 02/22/19 14:32 Dose: 40 mg Sodium Chloride (Normal Saline) 1,000 mls @ 125 mls/hr IV STAT [facility] Last Admin: 02/22/19 23:43 Dose: 125 mls/hr Piperacillin Sod/Tazobactam (Sod 3.375 gm/ Sodium Chloride) 50 mls @ 100 mls/ hr IV Q6H [facility] Last Admin: 02/23/19 07:53 Dose: 100 mls/hr Vancomycin HCl 1.5 gm/ Sodium (Chloride) 500 mls @ 250 mls/hr IV Q8H [facility] Last Admin: 02/23/19 03:36 Dose: 250 mls/hr Morphine Sulfate (Morphine) 2 mg IVPUSH Q2H PRN PRN Reason: Pain (severe 7-10) Last Admin: 02/23/19 05:48 Dose: 2 mg Ondansetron HCl (Zofran) 4 mg IVPUSH Q4H PRN PRN Reason: Nausea Oxycodone HCl (Oxycodone) 5 mg PO Q4H PRN PRN Reason: Pain (moderate 4-6) Last Admin: 02/23/19 05:46 Dose: 5 mg Vancomycin HCl (Pharmacy To Dose - Vancomycin) 1 dose .XX ASDIRECTED [facility] Discontinued Medications Fentanyl (Sublimaze) Confirm Administered Dose 100 mcg .ROUTE .STK-MED ONE Stop: 02/23/19 07:41 Clindamycin Phosphate 300 mg/ (Sodium Chloride) 52 mls @ 100 mls/hr IV ONETIME ONE Stop: 02/22/19 12:00 Last Admin: 02/22/19 12:14 Dose: Not Given Vancomycin HCl 1 gm/ Sodium (Chloride) 250 mls @ 250 mls/hr IV ONETIME ONE Stop: 02/22/19 12:28 Last Admin: 02/22/19 12:55 Dose: 250 mls/hr Clindamycin Phosphate 300 mg/ (Premix) 50 mls @ 96.154 mls/hr IV ONETIME ONE Stop: 02/22/19 12:16 Last Admin: 02/22/19 12:11 Dose: 96.154 mls/hr Iopamidol (Isovue Multipack-370 (76%)) 100 ml IVPUSH ONETIME STA Stop: 02/22/19 17:25 Last Admin: 02/22/19 17:25 Dose: 100 ml Lidocaine (Xylocaine-Mpf 2%) Confirm Administered Dose 5 ml .ROUTE .STK-MED ONE Stop: 02/23/19 07:41 Midazolam HCl (Versed 1 Mg/Ml) Confirm Administered Dose 2 mg .ROUTE .STK-MED ONE Stop: 02/23/19 07:41 Morphine Sulfate (Morphine) 2 mg IVPUSH ONETIME ONE Stop: 02/22/19 11:30 Last Admin: 02/22/19 12:06 Dose: 2 mg Ondansetron HCl (Zofran) Confirm Administered Dose 4 mg .ROUTE .STK-MED ONE Stop: 02/23/19 07:41 Propofol (Diprivan 20 Ml) Confirm Administered Dose 200 mg .ROUTE .STK-MED ONE Stop: 02/23/19 07:41
--- NOTE | 2019-02-23 08:08 | PCM.PN ---
<Lizzette Walker M - Last Filed: 02/23/19 10:36> - General Info Date of Service: 02/23/19 Admission Dx/Problem (Free Text): Admission Diagnosis/Problem Admission Diagnosis/Problem Cellulitis Subjective Update: Patient in OR upon initial rounds. Patient arrived back to room from PACU, quite sedated, easily arousable. No pain. Wanting some water. No concerns. Functional Status: Reports: Pain Controlled - Review of Systems General: Denies: Fever HEENT: Reports: No Symptoms. Denies: Headaches, Sore Throat Pulmonary: Reports: No Symptoms. Denies: Shortness of Breath Cardiovascular: Reports: No Symptoms. Denies: Chest Pain Gastrointestinal: Reports: No Symptoms. Denies: Abdominal Pain, Nausea, Vomiting Genitourinary: Reports: No Symptoms Skin: Reports: Other (redness to abdomen) Neurological: Reports: No Symptoms Psychiatric: Reports: No Symptoms - Patient Data Vitals - Most Recent: Last Vital Signs Temp 100.5 F 02/23/19 08:02 Pulse 94 02/23/19 03:39 Resp 16 02/23/19 08:02 BP 104/62 02/23/19 03:39 Pulse Ox 97 02/23/19 08:02 Weight - Most Recent: 111.629 kg I&O - Last 24 Hours: Intake & Output 02/22/19 02/23/19 02/23/19 22:59 06:59 14:59 Intake Total 1057 2450 Output Total 400 1100 Balance 657 1350 Lab Results Last 24 Hours: Laboratory Results - last 24 hr 02/22/19 02/22/19 02/22/19 Range/Units 11:56 12:06 12:06 WBC 14.10 H (4.0-11.0) K/uL RBC 4.64 (4.30-5.90) M/uL Hgb 14.3 (12.0-16.0) g/dL Hct 42.1 (36.0-46.0) % MCV 90.7 (80.0-98.0) fL MCH 30.8 (27.0-32.0) pg MCHC 34.0 (31.0-37.0) g/dL RDW Std Deviation 43.0 (28.0-62.0) fl RDW Coeff of Boby 13 (11.0-15.0) % Plt Count 276 (150-400) K/uL MPV 10.90 (7.40-12.00) fL Neut % (Auto) 70.4 (48.0-80.0) % Lymph % (Auto) 14.0 L (16.0-40.0) % Mora % (Auto) 14.7 (0.0-15.0) % Eos % (Auto) 0.8 (0.0-7.0) % Baso % (Auto) 0.1 (0.0-1.5) % Neut # (Auto) 9.9 H (1.4-5.7) K/uL Lymph # (Auto) 2.0 (0.6-2.4) K/uL Mora # (Auto) 2.1 H (0.0-0.8) K/uL Eos # (Auto) 0.1 (0.0-0.7) K/uL Baso # (Auto) 0.0 (0.0-0.1) K/uL Nucleated RBC % 0.0 /100WBC Nucleated RBCs # 0 K/uL Lactate 1.6 (0.20-2.00) mmol/L Sodium 138 (136-145) mmol/L Potassium 5.1 (3.5-5.1) mmol/L Chloride 104 (98-107) mmol/L Carbon Dioxide 22.6 (21.0-32.0) mmol/L BUN 7 (7.0-18.0) mg/dL Creatinine 0.9 (0.6-1.0) mg/dL Est Cr Clr Drug Dosing 75.61 mL/min Estimated GFR (MDRD) > 60.0 ml/min Glucose 97 (74-106) mg/dL Calcium 8.7 (8.5-10.1) mg/dL Total Bilirubin 0.4 (0.2-1.0) mg/dL AST 32 (15-37) IU/L ALT 63 (14-63) IU/L Alkaline Phosphatase 68 (46-116) U/L Total Protein 6.9 (6.4-8.2) g/dL Albumin 3.1 L (3.4-5.0) g/dL Globulin 3.8 (2.6-4.0) g/dL Albumin/Globulin Ratio 0.8 L (0.9-1.6) HCG, Qual (NEG) 02/22/19 02/23/19 02/23/19 Range/Units 12:06 05:30 05:30 WBC 13.21 H (4.0-11.0) K/uL RBC 4.24 L (4.30-5.90) M/uL Hgb 12.9 (12.0-16.0) g/dL Hct 38.8 (36.0-46.0) % MCV 91.5 (80.0-98.0) fL MCH 30.4 (27.0-32.0) pg MCHC 33.2 (31.0-37.0) g/dL RDW Std Deviation 43.7 (28.0-62.0) fl RDW Coeff of Boby 13 (11.0-15.0) % Plt Count 245 (150-400) K/uL MPV 10.60 (7.40-12.00) fL Neut % (Auto) 70.8 (48.0-80.0) % Lymph % (Auto) 15.5 L (16.0-40.0) % Mora % (Auto) 12.6 (0.0-15.0) % Eos % (Auto) 1.0 (0.0-7.0) % Baso % (Auto) 0.1 (0.0-1.5) % Neut # (Auto) 9.4 H (1.4-5.7) K/uL Lymph # (Auto) 2.1 (0.6-2.4) K/uL Mora # (Auto) 1.7 H (0.0-0.8) K/uL Eos # (Auto) 0.1 (0.0-0.7) K/uL Baso # (Auto) 0.0 (0.0-0.1) K/uL Nucleated RBC % 0.0 /100WBC Nucleated RBCs # 0 K/uL Lactate (0.20-2.00) mmol/L Sodium 137 (136-145) mmol/L Potassium 4.3 (3.5-5.1) mmol/L Chloride 105 (98-107) mmol/L Carbon Dioxide 24.7 (21.0-32.0) mmol/L BUN 8 (7.0-18.0) mg/dL Creatinine 0.9 (0.6-1.0) mg/dL Est Cr Clr Drug Dosing 75.61 mL/min Estimated GFR (MDRD) > 60.0 ml/min Glucose 96 (74-106) mg/dL Calcium 7.8 L (8.5-10.1) mg/dL Total Bilirubin (0.2-1.0) mg/dL AST (15-37) IU/L ALT (14-63) IU/L Alkaline Phosphatase (46-116) U/L Total Protein (6.4-8.2) g/dL Albumin (3.4-5.0) g/dL Globulin (2.6-4.0) g/dL Albumin/Globulin Ratio (0.9-1.6) HCG, Qual NEGATIVE (NEG) Madhu Results Last 24 Hours: Microbiology 02/22/19 12:06 Anaerobic Blood Culture - Final Blood - Venous - Lab Draw 02/22/19 11:56 Anaerobic Blood Culture - Final Blood - Venous Med Orders - Current: Current Medications Acetaminophen (Tylenol) 650 mg PO Q4H PRN PRN Reason: Pain (Mild 1-3)/fever Last Admin: 02/22/19 20:28 Dose: 650 mg Enoxaparin Sodium (Lovenox) 40 mg SUBCUT Q24H [facility] Last Admin: 02/22/19 14:32 Dose: 40 mg Sodium Chloride (Normal Saline) 1,000 mls @ 125 mls/hr IV STAT [facility] Last Admin: 02/22/19 23:43 Dose: 125 mls/hr Piperacillin Sod/Tazobactam (Sod 3.375 gm/ Sodium Chloride) 50 mls @ 100 mls/ hr IV Q6H [facility] Last Admin: 02/23/19 07:53 Dose: 100 mls/hr Vancomycin HCl 1.5 gm/ Sodium (Chloride) 500 mls @ 250 mls/hr IV Q8H [facility] Last Admin: 02/23/19 03:36 Dose: 250 mls/hr Morphine Sulfate (Morphine) 2 mg IVPUSH Q2H PRN PRN Reason: Pain (severe 7-10) Last Admin: 02/23/19 05:48 Dose: 2 mg Ondansetron HCl (Zofran) 4 mg IVPUSH Q4H PRN PRN Reason: Nausea Oxycodone HCl (Oxycodone) 5 mg PO Q4H PRN PRN Reason: Pain (moderate 4-6) Last Admin: 02/23/19 05:46 Dose: 5 mg Vancomycin HCl (Pharmacy To Dose - Vancomycin) 1 dose .XX ASDIRECTED SHAYE Discontinued Medications Fentanyl (Sublimaze) Confirm Administered Dose 100 mcg .ROUTE .STK-MED ONE Stop: 02/23/19 07:41 Clindamycin Phosphate 300 mg/ (Sodium Chloride) 52 mls @ 100 mls/hr IV ONETIME ONE Stop: 02/22/19 12:00 Last Admin: 02/22/19 12:14 Dose: Not Given Vancomycin HCl 1 gm/ Sodium (Chloride) 250 mls @ 250 mls/hr IV ONETIME ONE Stop: 02/22/19 12:28 Last Admin: 02/22/19 12:55 Dose: 250 mls/hr Clindamycin Phosphate 300 mg/ (Premix) 50 mls @ 96.154 mls/hr IV ONETIME ONE Stop: 02/22/19 12:16 Last Admin: 02/22/19 12:11 Dose: 96.154 mls/hr Iopamidol (Isovue Multipack-370 (76%)) 100 ml IVPUSH ONETIME STA Stop: 02/22/19 17:25 Last Admin: 02/22/19 17:25 Dose: 100 ml Lidocaine (Xylocaine-Mpf 2%) Confirm Administered Dose 5 ml .ROUTE .STK-MED ONE Stop: 02/23/19 07:41 Midazolam HCl (Versed 1 Mg/Ml) Confirm Administered Dose 2 mg .ROUTE .STK-MED ONE Stop: 02/23/19 07:41 Morphine Sulfate (Morphine) 2 mg IVPUSH ONETIME ONE Stop: 02/22/19 11:30 Last Admin: 02/22/19 12:06 Dose: 2 mg Ondansetron HCl (Zofran) Confirm Administered Dose 4 mg .ROUTE .STK-MED ONE Stop: 02/23/19 07:41 Propofol (Diprivan 20 Ml) Confirm Administered Dose 200 mg .ROUTE .STK-MED ONE Stop: 02/23/19 07:41 - Exam General: Alert, Oriented, Cooperative Lungs: Clear to Auscultation, Normal Respiratory Effort Cardiovascular: Regular Rate, Regular Rhythm GI/Abdominal Exam: Normal Bowel Sounds, Soft, Non-Tender Extremities: Normal Inspection, Normal Range of Motion, Non-Tender, No Pedal Edema Wound/Incisions: Dressing Dry and Intact (abdominal wall), Drainage, Erythema Improving Neurological: No New Focal Deficit Psy/Mental Status: Alert, Normal Affect, Normal Mood - Problem List & Annotations (1) Cellulitis SNOMED Code(s): 484500156 Code(s): L03.90 - CELLULITIS, UNSPECIFIED Status: Acute Current Visit: Yes Qualifiers: Site of cellulitis: trunk Site of cellulitis of trunk: abdominal wall Qualified Code(s): L03.311 - Cellulitis of abdominal wall (2) Tobacco abuse SNOMED Code(s): 689612751 Code(s): Z72.0 - TOBACCO USE Status: Chronic Current Visit: Yes (3) Obesity SNOMED Code(s): 010471283, 335519703 Code(s): E66.9 - OBESITY, UNSPECIFIED Status: Chronic Current Visit: Yes - Problem List Review Problem List Initiated/Reviewed/Updated: Yes - My Orders Last 24 Hours: My Active Orders 02/22/19 13:44 Oxygen Therapy [RC] PRN VTE/DVT Education [RC] PER UNIT ROUTINE Vital Signs [RC] Q4H Resuscitation Status Routine 02/22/19 13:49 Up With Assistance [RC] ASDIRECTED Acetaminophen [Tylenol] 650 mg PO Q4H PRN Morphine 2 mg IVPUSH Q2H PRN oxyCODONE 5 mg PO Q4H PRN 02/22/19 13:51 Intake and Output [RC] Q12H Ondansetron [Zofran] 4 mg IVPUSH Q4H PRN 02/22/19 14:00 Enoxaparin [Lovenox] 40 mg SUBCUT Q24H Pharmacy to Dose - Vancomycin 1 dose .XX ASDIRECTED Piperacillin/Tazobactam [Piperacil-Tazobact] 3.375 gm Sodium Chloride 0.9% [ Normal Saline] 50 ml IV Q6H 02/22/19 14:21 Notify Provider Consults [RC] ASDIRECTED Consult to Physician [CONS] Routine 02/22/19 19:30 Vancomycin 1.5 gm Sodium Chloride 0.9% [Normal Saline] 500 ml IV Q8H 02/23/19 11:00 VANCOMYCIN TROUGH [CHEM] Routine 02/24/19 05:11 BASIC METABOLIC PANEL,BMP [CHEM] AM CBC WITH AUTO DIFF [HEME] AM 02/25/19 05:11 BASIC METABOLIC PANEL,BMP [CHEM] AM CBC WITH AUTO DIFF [HEME] AM - Plan Plan:: This 28 year old female admitted with cellulitis of abdominal fold 1. Abdominal wall cellulitis: To OR this morning, see report. large abscess noted. Continue Vancomycin and Zosyn. I appreciate Dr Short's assistance with this case. BC and wound culture obtained. Morphine and oxycodone for pain control PRN. Continue IVFs. VTE prophylaxis: Lovenox Dispo: 2-3 days pending improvement. <Santana Lobo M - Last Filed: 02/23/19 10:50> - General Info Admission Dx/Problem (Free Text): I have seen and examined to patient independently of Lizzette Walker CNP. I have discussed the case for care of this patient with her. I have reviewed and approve of the plan of care as outlined by [employer]. Please see orders. - Patient Data Vitals - Most Recent: Last Vital Signs Temp 37.2 C 02/23/19 10:20 Pulse 93 02/23/19 10:20 Resp 22 H 02/23/19 10:20 BP 111/59 L 02/23/19 10:20 Pulse Ox 94 L 02/23/19 10:20 I&O - Last 24 Hours: Intake & Output 02/22/19 02/23/19 02/23/19 22:59 06:59 14:59 Intake Total 1057 2450 1700 Output Total 400 1100 Balance 657 1350 1700 Lab Results Last 24 Hours: Laboratory Results - last 24 hr 02/22/19 02/22/19 02/22/19 Range/Units 11:56 12:06 12:06 WBC 14.10 H (4.0-11.0) K/uL RBC 4.64 (4.30-5.90) M/uL Hgb 14.3 (12.0-16.0) g/dL Hct 42.1 (36.0-46.0) % MCV 90.7 (80.0-98.0) fL MCH 30.8 (27.0-32.0) pg MCHC 34.0 (31.0-37.0) g/dL RDW Std Deviation 43.0 (28.0-62.0) fl RDW Coeff of Boby 13 (11.0-15.0) % Plt Count 276 (150-400) K/uL MPV 10.90 (7.40-12.00) fL Neut % (Auto) 70.4 (48.0-80.0) % Lymph % (Auto) 14.0 L (16.0-40.0) % Mora % (Auto) 14.7 (0.0-15.0) % Eos % (Auto) 0.8 (0.0-7.0) % Baso % (Auto) 0.1 (0.0-1.5) % Neut # (Auto) 9.9 H (1.4-5.7) K/uL Lymph # (Auto) 2.0 (0.6-2.4) K/uL Mora # (Auto) 2.1 H (0.0-0.8) K/uL Eos # (Auto) 0.1 (0.0-0.7) K/uL Baso # (Auto) 0.0 (0.0-0.1) K/uL Nucleated RBC % 0.0 /100WBC Nucleated RBCs # 0 K/uL Lactate 1.6 (0.20-2.00) mmol/L Sodium 138 (136-145) mmol/L Potassium 5.1 (3.5-5.1) mmol/L Chloride 104 (98-107) mmol/L Carbon Dioxide 22.6 (21.0-32.0) mmol/L BUN 7 (7.0-18.0) mg/dL Creatinine 0.9 (0.6-1.0) mg/dL Est Cr Clr Drug Dosing 75.61 mL/min Estimated GFR (MDRD) > 60.0 ml/min Glucose 97 (74-106) mg/dL Calcium 8.7 (8.5-10.1) mg/dL Total Bilirubin 0.4 (0.2-1.0) mg/dL AST 32 (15-37) IU/L ALT 63 (14-63) IU/L Alkaline Phosphatase 68 (46-116) U/L Total Protein 6.9 (6.4-8.2) g/dL Albumin 3.1 L (3.4-5.0) g/dL Globulin 3.8 (2.6-4.0) g/dL Albumin/Globulin Ratio 0.8 L (0.9-1.6) HCG, Qual (NEG) 02/22/19 02/23/19 02/23/19 Range/Units 12:06 05:30 05:30 WBC 13.21 H (4.0-11.0) K/uL RBC 4.24 L (4.30-5.90) M/uL Hgb 12.9 (12.0-16.0) g/dL Hct 38.8 (36.0-46.0) % MCV 91.5 (80.0-98.0) fL MCH 30.4 (27.0-32.0) pg MCHC 33.2 (31.0-37.0) g/dL RDW Std Deviation 43.7 (28.0-62.0) fl RDW Coeff of Boby 13 (11.0-15.0) % Plt Count 245 (150-400) K/uL MPV 10.60 (7.40-12.00) fL Neut % (Auto) 70.8 (48.0-80.0) % Lymph % (Auto) 15.5 L (16.0-40.0) % Mora % (Auto) 12.6 (0.0-15.0) % Eos % (Auto) 1.0 (0.0-7.0) % Baso % (Auto) 0.1 (0.0-1.5) % Neut # (Auto) 9.4 H (1.4-5.7) K/uL Lymph # (Auto) 2.1 (0.6-2.4) K/uL Mora # (Auto) 1.7 H (0.0-0.8) K/uL Eos # (Auto) 0.1 (0.0-0.7) K/uL Baso # (Auto) 0.0 (0.0-0.1) K/uL Nucleated RBC % 0.0 /100WBC Nucleated RBCs # 0 K/uL Lactate (0.20-2.00) mmol/L Sodium 137 (136-145) mmol/L Potassium 4.3 (3.5-5.1) mmol/L Chloride 105 (98-107) mmol/L Carbon Dioxide 24.7 (21.0-32.0) mmol/L BUN 8 (7.0-18.0) mg/dL Creatinine 0.9 (0.6-1.0) mg/dL Est Cr Clr Drug Dosing 75.61 mL/min Estimated GFR (MDRD) > 60.0 ml/min Glucose 96 (74-106) mg/dL Calcium 7.8 L (8.5-10.1) mg/dL Total Bilirubin (0.2-1.0) mg/dL AST (15-37) IU/L ALT (14-63) IU/L Alkaline Phosphatase (46-116) U/L Total Protein (6.4-8.2) g/dL Albumin (3.4-5.0) g/dL Globulin (2.6-4.0) g/dL Albumin/Globulin Ratio (0.9-1.6) HCG, Qual NEGATIVE (NEG) Madhu Results Last 24 Hours: Microbiology 02/22/19 12:06 Anaerobic Blood Culture - Final Blood - Venous - Lab Draw 02/22/19 11:56 Anaerobic Blood Culture - Final Blood - Venous Med Orders - Current: Current Medications Acetaminophen (Tylenol) 650 mg PO Q4H PRN PRN Reason: Pain (Mild 1-3)/fever Last Admin: 02/22/19 20:28 Dose: 650 mg Albuterol (Proventil Neb Soln) 2.5 mg NEB ONETIME PRN PRN Reason: Wheezing Atropine Sulfate (Atropine 0.1 Mg/Ml) 0.5 mg IVPUSH ASDIRECTED PRN PRN Reason: Hypo-perfusion Atropine Sulfate (Atropine 0.1 Mg/Ml) 1 mg IVPUSH ASDIRECTED PRN PRN Reason: Hypo-Perfusion Dextrose/Water (Dextrose 50% In Water) 50 ml IVPUSH ASDIRECTED PRN PRN Reason: Hypoglycemia Diphenhydramine HCl (Benadryl) 12.5 mg IVPUSH .ONETIME PRN PRN Reason: Nausea Last Admin: 02/23/19 09:33 Dose: 12.5 mg Enoxaparin Sodium (Lovenox) 40 mg SUBCUT Q24H [facility] Last Admin: 02/22/19 14:32 Dose: 40 mg Epinephrine HCl (Epinephrine 1:10,000) 1 mg IVPUSH ASDIRECTED PRN PRN Reason: ACLS Guidelines Famotidine (Pepcid) 20 mg IVPUSH .ONETIME PRN PRN Reason: Nausea Last Admin: 02/23/19 09:34 Dose: 20 mg Fentanyl (Sublimaze) 50 - 100 mcg IVPUSH Q5M PRN PRN Reason: Pain Sodium Chloride (Normal Saline) 1,000 mls @ 125 mls/hr IV STAT [facility] Last Admin: 02/22/19 23:43 Dose: 125 mls/hr Piperacillin Sod/Tazobactam (Sod 3.375 gm/ Sodium Chloride) 50 mls @ 100 mls/ hr IV Q6H [facility] Last Admin: 02/23/19 07:53 Dose: 100 mls/hr Vancomycin HCl 1.5 gm/ Sodium (Chloride) 500 mls @ 250 mls/hr IV Q8H [facility] Last Admin: 02/23/19 03:36 Dose: 250 mls/hr Morphine Sulfate (Morphine) 2 mg IVPUSH Q2H PRN PRN Reason: Pain (severe 7-10) Last Admin: 02/23/19 05:48 Dose: 2 mg Naloxone HCl (Narcan) 0.1 mg IVPUSH ASDIRECTED PRN PRN Reason: Respiratory Depression Ondansetron HCl (Zofran) 4 mg IVPUSH Q4H PRN PRN Reason: Nausea Oxycodone HCl (Oxycodone) 5 mg PO Q4H PRN PRN Reason: Pain (moderate 4-6) Last Admin: 02/23/19 05:46 Dose: 5 mg Vancomycin HCl (Pharmacy To Dose - Vancomycin) 1 dose .XX ASDIRECTED [facility] Discontinued Medications Bupivacaine HCl (Marcaine 0.5%) Confirm Administered Dose 30 ml .ROUTE .STK-MED ONE Stop: 02/23/19 08:47 Fentanyl (Sublimaze) Confirm Administered Dose 100 mcg .ROUTE .STK-MED ONE Stop: 02/23/19 07:41 Clindamycin Phosphate 300 mg/ (Sodium Chloride) 52 mls @ 100 mls/hr IV ONETIME ONE Stop: 02/22/19 12:00 Last Admin: 02/22/19 12:14 Dose: Not Given Vancomycin HCl 1 gm/ Sodium (Chloride) 250 mls @ 250 mls/hr IV ONETIME ONE Stop: 02/22/19 12:28 Last Admin: 02/22/19 12:55 Dose: 250 mls/hr Clindamycin Phosphate 300 mg/ (Premix) 50 mls @ 96.154 mls/hr IV ONETIME ONE Stop: 02/22/19 12:16 Last Admin: 02/22/19 12:11 Dose: 96.154 mls/hr Iopamidol (Isovue Multipack-370 (76%)) 100 ml IVPUSH ONETIME STA Stop: 02/22/19 17:25 Last Admin: 02/22/19 17:25 Dose: 100 ml Ketamine HCl (Ketalar) Confirm Administered Dose 500 mg .ROUTE .STK-MED ONE Stop: 02/23/19 08:14 Lidocaine (Xylocaine-Mpf 2%) Confirm Administered Dose 5 ml .ROUTE .STK-MED ONE Stop: 02/23/19 07:41 Midazolam HCl (Versed 1 Mg/Ml) Confirm Administered Dose 2 mg .ROUTE .STK-MED ONE Stop: 02/23/19 07:41 Morphine Sulfate (Morphine) 2 mg IVPUSH ONETIME ONE Stop: 02/22/19 11:30 Last Admin: 02/22/19 12:06 Dose: 2 mg Ondansetron HCl (Zofran) Confirm Administered Dose 4 mg .ROUTE .STK-MED ONE Stop: 02/23/19 07:41 Propofol (Diprivan 20 Ml) Confirm Administered Dose 200 mg .ROUTE .STK-MED ONE Stop: 02/23/19 07:41
[2019-02-23] MEDS ORDERED: Ketamine 500 mg/10 ML MDV ONE (08:13)
[2019-02-23] MEDS ORDERED: Bupivacaine 0.5% 30 ML SDV ONE (08:46)
--- NOTE | 2019-02-23 09:03 | PCM.OPNOTE ---
- General Post-Op/Procedure Note Date of Surgery/Procedure: 02/23/19 Operative Procedure(s): Incision and drainage of abdominal wall abscess Findings: Abdominal wall abscess 5 x 3 x 7 cm Pre Op Diagnosis: Abscess Post-Op Diagnosis: same Anesthesia Technique: RUPAL Primary Surgeon: Cyndi Short Condition: Fair Free Text/Narrative:: Intake & Output 02/22/19 02/23/19 02/23/19 22:59 06:59 14:59 Intake Total 1057 2450 Output Total 400 1100 Balance 657 4390
[2019-02-23] MEDS ORDERED: Albuterol 0.083% 2.5 MG/3 ML Neb Soln NEB PRN (09:19)
[2019-02-23] MEDS ORDERED: Naloxone 0.4 MG/ML Syringe IVPUSH PRN (09:19)
[2019-02-23] MEDS ORDERED: EPINEPHrine 1:10,000 1 MG/10 ML Syringe IVPUSH PRN (09:19)
[2019-02-23] MEDS ORDERED: fentaNYL 100 MCG/2 ML SDV IVPUSH PRN (09:19)
[2019-02-23] MEDS ORDERED: 50% Dextrose in Water 50 ML Syringe IVPUSH PRN (09:19)
[2019-02-23] MEDS ORDERED: Atropine 0.1 MG/ML 10 ML Syringe IVPUSH PRN ×2 (09:19)
[2019-02-23] MEDS ORDERED: diphenhydrAMINE 50 MG/ML SDV IVPUSH PRN (09:22)
[2019-02-23] MEDS ORDERED: Famotidine 20 MG/2 ML SDV IVPUSH PRN (09:23)
--- NOTE | 2019-02-23 09:39 | PCM.POSTAN ---
POST ANESTHESIA ASSESSMENT - MENTAL STATUS Mental Status: Alert, Oriented - VITAL SIGNS Pulse Rate: 92 SaO2: 100 (on RA) Resp Rate: 14 Blood Pressure: 128/71 - RESPIRATORY Respiratory Status: Respiratory Rate WNL, Airway Patent, O2 Saturation Stable - CARDIOVASCULAR CV Status: Pulse Rate WNL, Blood Pressure Stable - GASTROINTESTINAL GI Status: No Symptoms - PAIN Pain Score: 0 - POST OP HYDRATION Hydration Status: Adequate & Stable - OBSERVATIONS Free Text/Narrative:: Pt did have a slight issue with nausea early - treated with small dose of Benadryl and Pepcid and nausea resolved. Pt has been coughing - related to smoking, but SATs are 100%. Pt has denied any pain. Pt cautioned against eating/ drinking vigorously when returning to room, as nausea will most likely return. Pt stable for tx to Med/Surg.
--- NOTE | 2019-02-23 11:25 | OR ---
SURGEON: CYNDI SHORT MD DATE OF PROCEDURE: 02/23/2019 PREOPERATIVE DIAGNOSIS: Abdominal wall abscess. POSTOPERATIVE DIAGNOSIS: Abdominal wall abscess. PROCEDURE PERFORMED: Incision and drainage of abdominal wall abscess. PRIMARY SURGEON: Cyndi Short MD. ANESTHESIA: MAC, local. FLUIDS: 900 mL crystalloid. ESTIMATED BLOOD LOSS: 5 mL. FINDINGS: 5 x 3 x 7 cm abscess containing bloody purulent appearing fluid. COMPLICATIONS: None. INDICATIONS: The patient is a 28-year-old female, who presented to the emergency room this weekend with a small abdominal wall abscess. This failed outpatient treatment and she was admitted to the hospitalist service for IV antibiotics due to cellulitis. On physical exam, the patient had fluctuant area. CT scan showed an abscess that was tracking quite deep. The patient and I discussed these findings and I explained the need for operative debridement. I explained the procedure, expected perioperative course as well as the need for postoperative wound cares and the risks including bleeding or infection. The patient verbalized understanding and wishes to proceed. PROCEDURE IN DETAIL: The patient was brought into the OR and placed on the OR table in supine position. A time-out was completed verifying the patient's name, age, date of , allergies, and procedure to be performed. Monitored anesthesia care was induced. The abdomen was prepped and draped in usual standard fashion. I made a 2 cm x 2 cm elliptical incision over the area of maximum fluctuance. I immediately expressed a large amount of purulent and bloody appearing material. This was sent for anaerobic and aerobic culture as well as Gram stain. Electrocautery was then used to remove this ellipse of skin and explore the wound cavity. It tracked to both sides and went very deep. Using electrocautery, I opened up my incision wider to allow adequate debridement. Using finger dissection, I took down any loculations in the wound cavity. It was then irrigated copiously with normal saline. Electrocautery was then used to achieve hemostasis. I measured my final wound which was 5 x 3 x 7 cm in size. The wound was then packed with normal saline soaked Kerlix gauze and covered with dry 4x4s, which were secured in place with tape. The patient tolerated the procedure well. She was taken to PACU in stable condition. All counts were complete and correct at the end of the case. LEMEASH / MODL /[id number]
[2019-02-23] MEDS: Sodium Chloride 0.9% 1,000 ML IV SCH (12:42)
[2019-02-23] MEDS: Enoxaparin 40 MG/0.4 ML Syringe SUBCUT SCH (13:40)
[2019-02-23] MEDS: Acetaminophen 325 MG Tab PO PRN (23:59)
[2019-02-24] MEDS: Sodium Chloride 0.9% 1,000 ML IV SCH (01:54)
[2019-02-24] MEDS: Piperacillin/Tazobactam 3.375 GM in Sodium Chloride 0.9% 50 ML IV SCH ×2 (01:55→08:11)
[2019-02-24] MEDS: oxyCODONE 5 MG Tab PO PRN ×3 (03:32→17:26)
[2019-02-24] MEDS: Vancomycin 1.5 GM in Sodium Chloride 0.9% 500 ML IV SCH ×3 (03:34→18:47)
[2019-02-24] MEDS: Morphine 2 MG/ML Syringe IVPUSH PRN ×2 (03:36→11:08)
[2019-02-24 06:49] LABS: CHLORIDE,CL 109 mmol/L (98-107); SODIUM,NA 141 mmol/L (136-145)
[2019-02-24] MEDS: Acetaminophen 325 MG Tab PO PRN (08:22)
--- NOTE | 2019-02-24 09:46 | PCM.PN ---
<Lizzette Walker M - Last Filed: 02/24/19 10:01> - General Info Date of Service: 02/24/19 Admission Dx/Problem (Free Text): Abdominal wall cellulitis and abscess Subjective Update: Feeling ok this morning, has headache from Morphine. No chest pain or SOB. Abdomen pain is better. No other concerns today. Functional Status: Reports: Pain Controlled, Tolerating Diet, Ambulating - Review of Systems General: Reports: No Symptoms. Denies: Fever, Weakness, Fatigue Pulmonary: Reports: No Symptoms. Denies: Shortness of Breath Cardiovascular: Reports: No Symptoms. Denies: Chest Pain Gastrointestinal: Reports: No Symptoms. Denies: Abdominal Pain, Nausea, Vomiting Genitourinary: Reports: No Symptoms. Denies: Dysuria, Frequency, Burning Skin: Reports: Other (erythema to abdominal fold) Neurological: Reports: No Symptoms Psychiatric: Reports: No Symptoms - Patient Data Vitals - Most Recent: Last Vital Signs Temp 98.3 F 02/24/19 08:10 Pulse 81 02/24/19 08:10 Resp 16 02/24/19 08:10 BP 97/53 L 02/24/19 08:10 Pulse Ox 100 02/24/19 08:10 Weight - Most Recent: 111.629 kg I&O - Last 24 Hours: Intake & Output 02/23/19 02/24/19 02/24/19 22:59 06:59 14:59 Intake Total 2450 2300 Output Total 1000 2600 Balance 1450 -300 Lab Results Last 24 Hours: Laboratory Results - last 24 hr 02/23/19 02/24/19 02/24/19 Range/Units 11:20 06:00 06:00 WBC 8.49 (4.0-11.0) K/uL RBC 3.89 L (4.30-5.90) M/uL Hgb 11.7 L (12.0-16.0) g/dL Hct 35.8 L (36.0-46.0) % MCV 92.0 (80.0-98.0) fL MCH 30.1 (27.0-32.0) pg MCHC 32.7 (31.0-37.0) g/dL RDW Std Deviation 43.7 (28.0-62.0) fl RDW Coeff of Boby 13 (11.0-15.0) % Plt Count 244 (150-400) K/uL MPV 10.40 (7.40-12.00) fL Neut % (Auto) 52.6 (48.0-80.0) % Lymph % (Auto) 35.0 (16.0-40.0) % [place] % (Auto) 9.0 (0.0-15.0) % Eos % (Auto) 3.3 (0.0-7.0) % Baso % (Auto) 0.1 (0.0-1.5) % Neut # (Auto) 4.5 (1.4-5.7) K/uL Lymph # (Auto) 3.0 H (0.6-2.4) K/uL [place] # (Auto) 0.8 (0.0-0.8) K/uL Eos # (Auto) 0.3 (0.0-0.7) K/uL Baso # (Auto) 0.0 (0.0-0.1) K/uL Nucleated RBC % 0.0 /100WBC Nucleated RBCs # 0 K/uL Sodium 141 (136-145) mmol/L Potassium 3.8 (3.5-5.1) mmol/L Chloride 109 H (98-107) mmol/L Carbon Dioxide 23.9 (21.0-32.0) mmol/L BUN 7 (7.0-18.0) mg/dL Creatinine 0.8 (0.6-1.0) mg/dL Est Cr Clr Drug Dosing 85.06 mL/min Estimated GFR (MDRD) > 60.0 ml/min Glucose 87 (74-106) mg/dL Calcium 8.2 L (8.5-10.1) mg/dL Vancomycin Trough 10.9 H (5.0-10.0) ug/mL Madhu Results Last 24 Hours: Microbiology 02/22/19 11:51 Wound Culture - Final Abdomen - Drainage (Mrsa) Staphylococcus Aureus 02/22/19 12:06 Aerobic Blood Culture - Preliminary Blood - Venous - Lab Draw NO GROWTH AFTER 1 DAY Anaerobic Blood Culture - Final 02/22/19 11:56 Aerobic Blood Culture - Preliminary Blood - Venous NO GROWTH AFTER 1 DAY Anaerobic Blood Culture - Final Med Orders - Current: Current Medications Acetaminophen (Tylenol) 650 mg PO Q4H PRN PRN Reason: Pain (Mild 1-3)/fever Last Admin: 02/24/19 08:22 Dose: 650 mg Albuterol (Proventil Neb Soln) 2.5 mg NEB ONETIME PRN PRN Reason: Wheezing Atropine Sulfate (Atropine 0.1 Mg/Ml) 0.5 mg IVPUSH ASDIRECTED PRN PRN Reason: Hypo-perfusion Atropine Sulfate (Atropine 0.1 Mg/Ml) 1 mg IVPUSH ASDIRECTED PRN PRN Reason: Hypo-Perfusion Dextrose/Water (Dextrose 50% In Water) 50 ml IVPUSH ASDIRECTED PRN PRN Reason: Hypoglycemia Diphenhydramine HCl (Benadryl) 12.5 mg IVPUSH .ONETIME PRN PRN Reason: Nausea Last Admin: 02/23/19 09:33 Dose: 12.5 mg Enoxaparin Sodium (Lovenox) 40 mg SUBCUT Q24H ON LICENSE OF [facility] Last Admin: 02/23/19 13:40 Dose: 40 mg Epinephrine HCl (Epinephrine 1:10,000) 1 mg IVPUSH ASDIRECTED PRN PRN Reason: ACLS Guidelines Famotidine (Pepcid) 20 mg IVPUSH .ONETIME PRN PRN Reason: Nausea Last Admin: 02/23/19 09:34 Dose: 20 mg Fentanyl (Sublimaze) 50 - 100 mcg IVPUSH Q5M PRN PRN Reason: Pain Sodium Chloride (Normal Saline) 1,000 mls @ 125 mls/hr IV STAT ON LICENSE OF [facility] Last Admin: 02/24/19 01:54 Dose: 125 mls/hr Vancomycin HCl 1.5 gm/ Sodium (Chloride) 500 mls @ 250 mls/hr IV Q8H ON LICENSE OF [facility] Last Admin: 02/24/19 03:34 Dose: 250 mls/hr Morphine Sulfate (Morphine) 2 mg IVPUSH Q2H PRN PRN Reason: Pain (severe 7-10) Last Admin: 02/24/19 03:36 Dose: 2 mg Naloxone HCl (Narcan) 0.1 mg IVPUSH ASDIRECTED PRN PRN Reason: Respiratory Depression Ondansetron HCl (Zofran) 4 mg IVPUSH Q4H PRN PRN Reason: Nausea Oxycodone HCl (Oxycodone) 5 mg PO Q4H PRN PRN Reason: Pain (moderate 4-6) Last Admin: 02/24/19 08:23 Dose: 5 mg Vancomycin HCl (Pharmacy To Dose - Vancomycin) 1 dose .XX ASDIRECTED SHAYE Discontinued Medications Bupivacaine HCl (Marcaine 0.5%) Confirm Administered Dose 30 ml .ROUTE .STK-MED ONE Stop: 02/23/19 08:47 Fentanyl (Sublimaze) Confirm Administered Dose 100 mcg .ROUTE .STK-MED ONE Stop: 02/23/19 07:41 Clindamycin Phosphate 300 mg/ (Sodium Chloride) 52 mls @ 100 mls/hr IV ONETIME ONE Stop: 02/22/19 12:00 Last Admin: 02/22/19 12:14 Dose: Not Given Vancomycin HCl 1 gm/ Sodium (Chloride) 250 mls @ 250 mls/hr IV ONETIME ONE Stop: 02/22/19 12:28 Last Admin: 02/22/19 12:55 Dose: 250 mls/hr Clindamycin Phosphate 300 mg/ (Premix) 50 mls @ 96.154 mls/hr IV ONETIME ONE Stop: 02/22/19 12:16 Last Admin: 02/22/19 12:11 Dose: 96.154 mls/hr Piperacillin Sod/Tazobactam (Sod 3.375 gm/ Sodium Chloride) 50 mls @ 100 mls/ hr IV Q6H SHAYE Last Admin: 02/24/19 08:11 Dose: 100 mls/hr Iopamidol (Isovue Multipack-370 (76%)) 100 ml IVPUSH ONETIME STA Stop: 02/22/19 17:25 Last Admin: 02/22/19 17:25 Dose: 100 ml Ketamine HCl (Ketalar) Confirm Administered Dose 500 mg .ROUTE .STK-MED ONE Stop: 02/23/19 08:14 Lidocaine (Xylocaine-Mpf 2%) Confirm Administered Dose 5 ml .ROUTE .STK-MED ONE Stop: 02/23/19 07:41 Midazolam HCl (Versed 1 Mg/Ml) Confirm Administered Dose 2 mg .ROUTE .STK-MED ONE Stop: 02/23/19 07:41 Morphine Sulfate (Morphine) 2 mg IVPUSH ONETIME ONE Stop: 02/22/19 11:30 Last Admin: 02/22/19 12:06 Dose: 2 mg Ondansetron HCl (Zofran) Confirm Administered Dose 4 mg .ROUTE .STK-MED ONE Stop: 02/23/19 07:41 Propofol (Diprivan 20 Ml) Confirm Administered Dose 200 mg .ROUTE .STK-MED ONE Stop: 02/23/19 07:41 - Exam General: Alert, Oriented, Cooperative, No Acute Distress Lungs: Clear to Auscultation, Normal Respiratory Effort Cardiovascular: Regular Rate, Regular Rhythm GI/Abdominal Exam: Normal Bowel Sounds, Soft, Non-Tender Extremities: Normal Inspection, Normal Range of Motion, Non-Tender, No Pedal Edema Wound/Incisions: Dressing Dry and Intact (to abdominal fold.), Drainage (serous noted to dressing. Dr Short to change this morning.), Erythema Improving Neurological: No New Focal Deficit Psy/Mental Status: Alert, Normal Affect, Normal Mood - Problem List & Annotations (1) Cellulitis SNOMED Code(s): 593235043 Code(s): L03.90 - CELLULITIS, UNSPECIFIED Status: Acute Current Visit: Yes Qualifiers: Site of cellulitis: trunk Site of cellulitis of trunk: abdominal wall Qualified Code(s): L03.311 - Cellulitis of abdominal wall (2) Tobacco abuse SNOMED Code(s): 116381130 Code(s): Z72.0 - TOBACCO USE Status: Chronic Current Visit: Yes (3) Obesity SNOMED Code(s): 368088108, 317728853 Code(s): E66.9 - OBESITY, UNSPECIFIED Status: Chronic Current Visit: Yes - Problem List Review Problem List Initiated/Reviewed/Updated: Yes - My Orders Last 24 Hours: My Active Orders 02/23/19 Lunch Regular Diet [DIET] 02/25/19 05:11 BASIC METABOLIC PANEL,BMP [CHEM] AM CBC WITH AUTO DIFF [HEME] AM - Plan Plan:: This 28 year old female admitted with cellulitis of abdominal fold 1. Abdominal wall cellulitis and abscess: OR yesterday, large abdominal wall abscess noted, see Dr Short's operative note. Culture returned MRSA this morning. Continue Vancomycin and and stop Zosyn. I appreciate Dr Short's assistance with this case. BC negative x 1 day Morphine and oxycodone for pain control PRN. VTE prophylaxis: Lovenox Dispo: 2-3 days pending improvement. <Santana Lobo - Last Filed: 02/24/19 11:38> - General Info Admission Dx/Problem (Free Text): I have seen and examined to patient independently of Lizzette Walker CNP. I have discussed the case for care of this patient with her. I have reviewed and approve of the plan of care as outlined by [facility]. Please see orders. - Patient Data Vitals - Most Recent: Last Vital Signs Temp 36.8 C 02/24/19 10:05 Pulse 67 02/24/19 10:05 Resp 16 02/24/19 10:05 BP 97/53 L 02/24/19 10:05 Pulse Ox 99 02/24/19 10:05 I&O - Last 24 Hours: Intake & Output 02/23/19 02/24/19 02/24/19 22:59 06:59 14:59 Intake Total 2450 2300 Output Total 1000 2600 Balance 1450 -300 Lab Results Last 24 Hours: Laboratory Results - last 24 hr 02/23/19 02/24/19 02/24/19 Range/Units 11:20 06:00 06:00 WBC 8.49 (4.0-11.0) K/uL RBC 3.89 L (4.30-5.90) M/uL Hgb 11.7 L (12.0-16.0) g/dL Hct 35.8 L (36.0-46.0) % MCV 92.0 (80.0-98.0) fL MCH 30.1 (27.0-32.0) pg MCHC 32.7 (31.0-37.0) g/dL RDW Std Deviation 43.7 (28.0-62.0) fl RDW Coeff of Boby 13 (11.0-15.0) % Plt Count 244 (150-400) K/uL MPV 10.40 (7.40-12.00) fL Neut % (Auto) 52.6 (48.0-80.0) % Lymph % (Auto) 35.0 (16.0-40.0) % [place] % (Auto) 9.0 (0.0-15.0) % Eos % (Auto) 3.3 (0.0-7.0) % Baso % (Auto) 0.1 (0.0-1.5) % Neut # (Auto) 4.5 (1.4-5.7) K/uL Lymph # (Auto) 3.0 H (0.6-2.4) K/uL [place] # (Auto) 0.8 (0.0-0.8) K/uL Eos # (Auto) 0.3 (0.0-0.7) K/uL Baso # (Auto) 0.0 (0.0-0.1) K/uL Nucleated RBC % 0.0 /100WBC Nucleated RBCs # 0 K/uL Sodium 141 (136-145) mmol/L Potassium 3.8 (3.5-5.1) mmol/L Chloride 109 H (98-107) mmol/L Carbon Dioxide 23.9 (21.0-32.0) mmol/L BUN 7 (7.0-18.0) mg/dL Creatinine 0.8 (0.6-1.0) mg/dL Est Cr Clr Drug Dosing 85.06 mL/min Estimated GFR (MDRD) > 60.0 ml/min Glucose 87 (74-106) mg/dL Calcium 8.2 L (8.5-10.1) mg/dL Vancomycin Trough 10.9 H (5.0-10.0) ug/mL Madhu Results Last 24 Hours: Microbiology 02/22/19 11:51 Wound Culture - Final Abdomen - Drainage (Mrsa) Staphylococcus Aureus 02/22/19 12:06 Aerobic Blood Culture - Preliminary Blood - Venous - Lab Draw NO GROWTH AFTER 1 DAY Anaerobic Blood Culture - Final 02/22/19 11:56 Aerobic Blood Culture - Preliminary Blood - Venous NO GROWTH AFTER 1 DAY Anaerobic Blood Culture - Final Med Orders - Current: Current Medications Acetaminophen (Tylenol) 650 mg PO Q4H PRN PRN Reason: Pain (Mild 1-3)/fever Last Admin: 02/24/19 08:22 Dose: 650 mg Albuterol (Proventil Neb Soln) 2.5 mg NEB ONETIME PRN PRN Reason: Wheezing Atropine Sulfate (Atropine 0.1 Mg/Ml) 0.5 mg IVPUSH ASDIRECTED PRN PRN Reason: Hypo-perfusion Atropine Sulfate (Atropine 0.1 Mg/Ml) 1 mg IVPUSH ASDIRECTED PRN PRN Reason: Hypo-Perfusion Dextrose/Water (Dextrose 50% In Water) 50 ml IVPUSH ASDIRECTED PRN PRN Reason: Hypoglycemia Diphenhydramine HCl (Benadryl) 12.5 mg IVPUSH .ONETIME PRN PRN Reason: Nausea Last Admin: 02/23/19 09:33 Dose: 12.5 mg Docusate Sodium (Colace) 100 mg PO BID ON LICENSE OF [facility] Last Admin: 02/24/19 11:08 Dose: 100 mg Enoxaparin Sodium (Lovenox) 40 mg SUBCUT Q24H ON LICENSE OF [facility] Last Admin: 02/23/19 13:40 Dose: 40 mg Epinephrine HCl (Epinephrine 1:10,000) 1 mg IVPUSH ASDIRECTED PRN PRN Reason: ACLS Guidelines Famotidine (Pepcid) 20 mg IVPUSH .ONETIME PRN PRN Reason: Nausea Last Admin: 02/23/19 09:34 Dose: 20 mg Fentanyl (Sublimaze) 50 - 100 mcg IVPUSH Q5M PRN PRN Reason: Pain Vancomycin HCl 1.5 gm/ Sodium (Chloride) 500 mls @ 250 mls/hr IV Q8H ON LICENSE OF [facility] Last Admin: 02/24/19 03:34 Dose: 250 mls/hr Morphine Sulfate (Morphine) 2 mg IVPUSH Q2H PRN PRN Reason: Pain (severe 7-10) Last Admin: 02/24/19 11:08 Dose: 2 mg Naloxone HCl (Narcan) 0.1 mg IVPUSH ASDIRECTED PRN PRN Reason: Respiratory Depression Ondansetron HCl (Zofran) 4 mg IVPUSH Q4H PRN PRN Reason: Nausea Oxycodone HCl (Oxycodone) 5 mg PO Q4H PRN PRN Reason: Pain (moderate 4-6) Last Admin: 02/24/19 08:23 Dose: 5 mg Vancomycin HCl (Pharmacy To Dose - Vancomycin) 1 dose .XX ASDIRECTED ON LICENSE OF [facility] Discontinued Medications Bupivacaine HCl (Marcaine 0.5%) Confirm Administered Dose 30 ml .ROUTE .STK-MED ONE Stop: 02/23/19 08:47 Fentanyl (Sublimaze) Confirm Administered Dose 100 mcg .ROUTE .STK-MED ONE Stop: 02/23/19 07:41 Clindamycin Phosphate 300 mg/ (Sodium Chloride) 52 mls @ 100 mls/hr IV ONETIME ONE Stop: 02/22/19 12:00 Last Admin: 02/22/19 12:14 Dose: Not Given Sodium Chloride (Normal Saline) 1,000 mls @ 125 mls/hr IV STAT SHAYE Last Admin: 02/24/19 01:54 Dose: 125 mls/hr Vancomycin HCl 1 gm/ Sodium (Chloride) 250 mls @ 250 mls/hr IV ONETIME ONE Stop: 02/22/19 12:28 Last Admin: 02/22/19 12:55 Dose: 250 mls/hr Clindamycin Phosphate 300 mg/ (Premix) 50 mls @ 96.154 mls/hr IV ONETIME ONE Stop: 02/22/19 12:16 Last Admin: 02/22/19 12:11 Dose: 96.154 mls/hr Piperacillin Sod/Tazobactam (Sod 3.375 gm/ Sodium Chloride) 50 mls @ 100 mls/ hr IV Q6H SHAYE Last Admin: 02/24/19 08:11 Dose: 100 mls/hr Iopamidol (Isovue Multipack-370 (76%)) 100 ml IVPUSH ONETIME STA Stop: 02/22/19 17:25 Last Admin: 02/22/19 17:25 Dose: 100 ml Ketamine HCl (Ketalar) Confirm Administered Dose 500 mg .ROUTE .STK-MED ONE Stop: 02/23/19 08:14 Lidocaine (Xylocaine-Mpf 2%) Confirm Administered Dose 5 ml .ROUTE .STK-MED ONE Stop: 02/23/19 07:41 Midazolam HCl (Versed 1 Mg/Ml) Confirm Administered Dose 2 mg .ROUTE .STK-MED ONE Stop: 02/23/19 07:41 Morphine Sulfate (Morphine) 2 mg IVPUSH ONETIME ONE Stop: 02/22/19 11:30 Last Admin: 02/22/19 12:06 Dose: 2 mg Ondansetron HCl (Zofran) Confirm Administered Dose 4 mg .ROUTE .STK-MED ONE Stop: 02/23/19 07:41 Propofol (Diprivan 20 Ml) Confirm Administered Dose 200 mg .ROUTE .STK-MED ONE Stop: 02/23/19 07:41 - My Orders Last 24 Hours: My Active Orders 02/23/19 10:57 CULTURE ANAEROBIC [RM] Routine CULTURE WOUND [RM] Routine
--- NOTE | 2019-02-24 10:05 | PCM48HPAN ---
Post Anesthesia Note - EVALUATION WITHIN 48HRS OF ANESTHETIC Vital Signs in Normal Range: Yes Patient Participated in Evaluation: Yes Respiratory Function Stable: Yes Airway Patent: Yes Cardiovascular Function Stable: Yes Hydration Status Stable: Yes Pain Control Satisfactory: Yes Nausea and Vomiting Control Satisfactory: Yes Mental Status Recovered: Yes Pulse Rate: 67 SaO2: 99 Resp Rate: 16 Temperature: 98.3 F Blood Pressure: 97/53
[2019-02-24] MEDS: Docusate Sodium 100 MG Cap PO SCH ×2 (11:08→23:26)
--- NOTE | 2019-02-24 11:22 | PCM.SURGPN ---
- General Info Date of Service: 02/24/19 Date of Surgery/Procedure: 02/23/19 POD#: 1 Functional Status: Reports: Pain Controlled, Tolerating Diet, Ambulating, Urinating - Review of Systems General: Reports: No Symptoms Gastrointestinal: Reports: No Symptoms - Patient Data Vitals - Most Recent: Last Vital Signs Temp 36.8 C 02/24/19 10:05 Pulse 67 02/24/19 10:05 Resp 16 02/24/19 10:05 BP 97/53 L 02/24/19 10:05 Pulse Ox 99 02/24/19 10:05 Weight - Most Recent: 111.629 kg I&O - Last 24 Hours: Intake & Output 02/23/19 02/24/19 02/24/19 22:59 06:59 14:59 Intake Total 2450 2300 Output Total 1000 2600 Balance 1450 -300 Lab Results Last 24 Hrs: Laboratory Results - last 24 hr 02/23/19 02/24/19 02/24/19 Range/Units 11:20 06:00 06:00 WBC 8.49 (4.0-11.0) K/uL RBC 3.89 L (4.30-5.90) M/uL Hgb 11.7 L (12.0-16.0) g/dL Hct 35.8 L (36.0-46.0) % MCV 92.0 (80.0-98.0) fL MCH 30.1 (27.0-32.0) pg MCHC 32.7 (31.0-37.0) g/dL RDW Std Deviation 43.7 (28.0-62.0) fl RDW Coeff of Boby 13 (11.0-15.0) % Plt Count 244 (150-400) K/uL MPV 10.40 (7.40-12.00) fL Neut % (Auto) 52.6 (48.0-80.0) % Lymph % (Auto) 35.0 (16.0-40.0) % [place] % (Auto) 9.0 (0.0-15.0) % Eos % (Auto) 3.3 (0.0-7.0) % Baso % (Auto) 0.1 (0.0-1.5) % Neut # (Auto) 4.5 (1.4-5.7) K/uL Lymph # (Auto) 3.0 H (0.6-2.4) K/uL [place] # (Auto) 0.8 (0.0-0.8) K/uL Eos # (Auto) 0.3 (0.0-0.7) K/uL Baso # (Auto) 0.0 (0.0-0.1) K/uL Nucleated RBC % 0.0 /100WBC Nucleated RBCs # 0 K/uL Sodium 141 (136-145) mmol/L Potassium 3.8 (3.5-5.1) mmol/L Chloride 109 H (98-107) mmol/L Carbon Dioxide 23.9 (21.0-32.0) mmol/L BUN 7 (7.0-18.0) mg/dL Creatinine 0.8 (0.6-1.0) mg/dL Est Cr Clr Drug Dosing 85.06 mL/min Estimated GFR (MDRD) > 60.0 ml/min Glucose 87 (74-106) mg/dL Calcium 8.2 L (8.5-10.1) mg/dL Vancomycin Trough 10.9 H (5.0-10.0) ug/mL Madhu Results Last 24 Hrs: Microbiology 02/22/19 11:51 Wound Culture - Final Abdomen - Drainage (Mrsa) Staphylococcus Aureus 02/22/19 12:06 Aerobic Blood Culture - Preliminary Blood - Venous - Lab Draw NO GROWTH AFTER 1 DAY Anaerobic Blood Culture - Final 02/22/19 11:56 Aerobic Blood Culture - Preliminary Blood - Venous NO GROWTH AFTER 1 DAY Anaerobic Blood Culture - Final Med Orders - Current: Current Medications Acetaminophen (Tylenol) 650 mg PO Q4H PRN PRN Reason: Pain (Mild 1-3)/fever Last Admin: 02/24/19 08:22 Dose: 650 mg Albuterol (Proventil Neb Soln) 2.5 mg NEB ONETIME PRN PRN Reason: Wheezing Atropine Sulfate (Atropine 0.1 Mg/Ml) 0.5 mg IVPUSH ASDIRECTED PRN PRN Reason: Hypo-perfusion Atropine Sulfate (Atropine 0.1 Mg/Ml) 1 mg IVPUSH ASDIRECTED PRN PRN Reason: Hypo-Perfusion Dextrose/Water (Dextrose 50% In Water) 50 ml IVPUSH ASDIRECTED PRN PRN Reason: Hypoglycemia Diphenhydramine HCl (Benadryl) 12.5 mg IVPUSH .ONETIME PRN PRN Reason: Nausea Last Admin: 02/23/19 09:33 Dose: 12.5 mg Docusate Sodium (Colace) 100 mg PO BID [facility] Last Admin: 02/24/19 11:08 Dose: 100 mg Enoxaparin Sodium (Lovenox) 40 mg SUBCUT Q24H [facility] Last Admin: 02/23/19 13:40 Dose: 40 mg Epinephrine HCl (Epinephrine 1:10,000) 1 mg IVPUSH ASDIRECTED PRN PRN Reason: ACLS Guidelines Famotidine (Pepcid) 20 mg IVPUSH .ONETIME PRN PRN Reason: Nausea Last Admin: 02/23/19 09:34 Dose: 20 mg Fentanyl (Sublimaze) 50 - 100 mcg IVPUSH Q5M PRN PRN Reason: Pain Vancomycin HCl 1.5 gm/ Sodium (Chloride) 500 mls @ 250 mls/hr IV Q8H [facility] Last Admin: 02/24/19 03:34 Dose: 250 mls/hr Morphine Sulfate (Morphine) 2 mg IVPUSH Q2H PRN PRN Reason: Pain (severe 7-10) Last Admin: 02/24/19 11:08 Dose: 2 mg Naloxone HCl (Narcan) 0.1 mg IVPUSH ASDIRECTED PRN PRN Reason: Respiratory Depression Ondansetron HCl (Zofran) 4 mg IVPUSH Q4H PRN PRN Reason: Nausea Oxycodone HCl (Oxycodone) 5 mg PO Q4H PRN PRN Reason: Pain (moderate 4-6) Last Admin: 02/24/19 08:23 Dose: 5 mg Vancomycin HCl (Pharmacy To Dose - Vancomycin) 1 dose .XX ASDIRECTED [facility] Discontinued Medications Bupivacaine HCl (Marcaine 0.5%) Confirm Administered Dose 30 ml .ROUTE .STK-MED ONE Stop: 02/23/19 08:47 Fentanyl (Sublimaze) Confirm Administered Dose 100 mcg .ROUTE .STK-MED ONE Stop: 02/23/19 07:41 Clindamycin Phosphate 300 mg/ (Sodium Chloride) 52 mls @ 100 mls/hr IV ONETIME ONE Stop: 02/22/19 12:00 Last Admin: 02/22/19 12:14 Dose: Not Given Sodium Chloride (Normal Saline) 1,000 mls @ 125 mls/hr IV STAT [facility] Last Admin: 02/24/19 01:54 Dose: 125 mls/hr Vancomycin HCl 1 gm/ Sodium (Chloride) 250 mls @ 250 mls/hr IV ONETIME ONE Stop: 02/22/19 12:28 Last Admin: 02/22/19 12:55 Dose: 250 mls/hr Clindamycin Phosphate 300 mg/ (Premix) 50 mls @ 96.154 mls/hr IV ONETIME ONE Stop: 02/22/19 12:16 Last Admin: 02/22/19 12:11 Dose: 96.154 mls/hr Piperacillin Sod/Tazobactam (Sod 3.375 gm/ Sodium Chloride) 50 mls @ 100 mls/ hr IV Q6H [facility] Last Admin: 02/24/19 08:11 Dose: 100 mls/hr Iopamidol (Isovue Multipack-370 (76%)) 100 ml IVPUSH ONETIME STA Stop: 02/22/19 17:25 Last Admin: 02/22/19 17:25 Dose: 100 ml Ketamine HCl (Ketalar) Confirm Administered Dose 500 mg .ROUTE .STK-MED ONE Stop: 02/23/19 08:14 Lidocaine (Xylocaine-Mpf 2%) Confirm Administered Dose 5 ml .ROUTE .STK-MED ONE Stop: 02/23/19 07:41 Midazolam HCl (Versed 1 Mg/Ml) Confirm Administered Dose 2 mg .ROUTE .STK-MED ONE Stop: 02/23/19 07:41 Morphine Sulfate (Morphine) 2 mg IVPUSH ONETIME ONE Stop: 02/22/19 11:30 Last Admin: 02/22/19 12:06 Dose: 2 mg Ondansetron HCl (Zofran) Confirm Administered Dose 4 mg .ROUTE .STK-MED ONE Stop: 02/23/19 07:41 Propofol (Diprivan 20 Ml) Confirm Administered Dose 200 mg .ROUTE .STK-MED ONE Stop: 02/23/19 07:41 - Exam Wound/Incisions: Healing Well, Other (First dressing change performed. Swelling and inflamation greatly improved. Wound appears clean and dry) Lungs: Normal Respiratory Effort Cardiovascular: Regular Rate - Problem List & Annotations (1) Cellulitis SNOMED Code(s): 704253317 Code(s): L03.90 - CELLULITIS, UNSPECIFIED Status: Acute Current Visit: Yes Qualifiers: Site of cellulitis: trunk Site of cellulitis of trunk: abdominal wall Qualified Code(s): L03.311 - Cellulitis of abdominal wall (2) Obesity SNOMED Code(s): 525027497, 084785694 Code(s): E66.9 - OBESITY, UNSPECIFIED Status: Chronic Current Visit: Yes (3) Abscess SNOMED Code(s): 860196438 Code(s): L02.91 - CUTANEOUS ABSCESS, UNSPECIFIED Status: Acute Current Visit: Yes - Problem List Review Problem List Initiated/Reviewed/Updated: Yes - My Orders Last 24 Hours: Active Orders 24 hr Category Date Time Status Regular Diet [DIET] Diet 02/23/19 Lunch Active BASIC METABOLIC PANEL,BMP [CHEM] AM Lab 02/25/19 05:11 Ordered CBC WITH AUTO DIFF [HEME] AM Lab 02/25/19 05:11 Ordered CULTURE ANAEROBIC [RM] Routine Lab 02/23/19 10:57 Received CULTURE WOUND [RM] Routine Lab 02/23/19 10:57 Received Docusate Sodium [Colace] Med 02/24/19 10:30 Active 100 mg PO BID Medication Orders Acetaminophen (Tylenol) 650 mg PO Q4H PRN PRN Reason: Pain (Mild 1-3)/fever Last Admin: 02/24/19 08:22 Dose: 650 mg Admin: 02/23/19 23:59 Dose: 650 mg Admin: 02/22/19 20:28 Dose: 650 mg Albuterol (Proventil Neb Soln) 2.5 mg NEB ONETIME PRN PRN Reason: Wheezing Atropine Sulfate (Atropine 0.1 Mg/Ml) 0.5 mg IVPUSH ASDIRECTED PRN PRN Reason: Hypo-perfusion Atropine Sulfate (Atropine 0.1 Mg/Ml) 1 mg IVPUSH ASDIRECTED PRN PRN Reason: Hypo-Perfusion Dextrose/Water (Dextrose 50% In Water) 50 ml IVPUSH ASDIRECTED PRN PRN Reason: Hypoglycemia Diphenhydramine HCl (Benadryl) 12.5 mg IVPUSH .ONETIME PRN PRN Reason: Nausea Last Admin: 02/23/19 09:33 Dose: 12.5 mg Docusate Sodium (Colace) 100 mg PO BID SHAYE Last Admin: 02/24/19 11:08 Dose: 100 mg Enoxaparin Sodium (Lovenox) 40 mg SUBCUT Q24H [facility] Last Admin: 02/23/19 13:40 Dose: 40 mg Admin: 02/22/19 14:32 Dose: 40 mg Epinephrine HCl (Epinephrine 1:10,000) 1 mg IVPUSH ASDIRECTED PRN PRN Reason: ACLS Guidelines Famotidine (Pepcid) 20 mg IVPUSH .ONETIME PRN PRN Reason: Nausea Last Admin: 02/23/19 09:34 Dose: 20 mg Fentanyl (Sublimaze) 50 - 100 mcg IVPUSH Q5M PRN PRN Reason: Pain Vancomycin HCl 1.5 gm/ Sodium (Chloride) 500 mls @ 250 mls/hr IV Q8H [facility] Last Admin: 02/24/19 03:34 Dose: 250 mls/hr Infusion: 02/23/19 20:47 Dose: 250 mls/hr Admin: 02/23/19 18:47 Dose: 250 mls/hr Infusion: 02/23/19 14:51 Dose: 250 mls/hr Admin: 02/23/19 12:51 Dose: 250 mls/hr Infusion: 02/23/19 05:36 Dose: 250 mls/hr Admin: 02/23/19 03:36 Dose: 250 mls/hr Infusion: 02/22/19 20:29 Dose: 250 mls/hr Admin: 02/22/19 18:29 Dose: 250 mls/hr Morphine Sulfate (Morphine) 2 mg IVPUSH Q2H PRN PRN Reason: Pain (severe 7-10) Last Admin: 02/24/19 11:08 Dose: 2 mg Admin: 02/24/19 03:36 Dose: 2 mg Admin: 02/23/19 23:54 Dose: 2 mg Admin: 02/23/19 21:15 Dose: 2 mg Admin: 02/23/19 18:54 Dose: 2 mg Admin: 02/23/19 12:33 Dose: 2 mg Admin: 02/23/19 05:48 Dose: 2 mg Admin: 02/23/19 01:51 Dose: 2 mg Admin: 02/22/19 23:40 Dose: 2 mg Admin: 02/22/19 20:15 Dose: 2 mg Admin: 02/22/19 17:41 Dose: 2 mg Naloxone HCl (Narcan) 0.1 mg IVPUSH ASDIRECTED PRN PRN Reason: Respiratory Depression Ondansetron HCl (Zofran) 4 mg IVPUSH Q4H PRN PRN Reason: Nausea Oxycodone HCl (Oxycodone) 5 mg PO Q4H PRN PRN Reason: Pain (moderate 4-6) Last Admin: 02/24/19 08:23 Dose: 5 mg Admin: 02/24/19 03:32 Dose: 5 mg Admin: 02/23/19 22:43 Dose: 5 mg Admin: 02/23/19 18:44 Dose: 5 mg Admin: 02/23/19 13:39 Dose: 5 mg Admin: 02/23/19 05:46 Dose: 5 mg Admin: 02/23/19 00:32 Dose: 5 mg Admin: 02/22/19 20:28 Dose: 5 mg Admin: 02/22/19 14:28 Dose: 5 mg Vancomycin HCl (Pharmacy To Dose - Vancomycin) 1 dose .XX ASDIRECTED SHAYE - Plan Plan (Free Text/Narrative):: -Wet to dry dressing changes daily -One week follow up with me in clinic for wound check -Antibiotics per primary team -Will sign off for now. Please call with questions and concerns.
[2019-02-24] MEDS: Enoxaparin 40 MG/0.4 ML Syringe SUBCUT SCH (14:04)
[2019-02-25] MEDS: Vancomycin 1.5 GM in Sodium Chloride 0.9% 500 ML IV SCH ×2 (03:02→11:19)
[2019-02-25 05:51] LABS: CHLORIDE,CL 107 mmol/L (98-107); SODIUM,NA 142 mmol/L (136-145)
[2019-02-25] MEDS: Docusate Sodium 100 MG Cap PO SCH (10:09)
[2019-02-25] MEDS: Morphine 2 MG/ML Syringe IVPUSH PRN (11:15)
--- NOTE | 2019-02-25 11:47 | PCM.DCSUM1 ---
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 She reports she was seen on Thursday in the ED and placed on Bactrim for cellulitis, she reports it has not gotten any better and has only worsened. She reports the pain is nearly 10/10 to abdominal fold. She states this started with a small region just underneath her umbilicus that was red and tender. No trauma or injury. No obvious bite. She reports some blood drainage started from it today. Reports fevers and chills at home. No chest pain or SOB. No urinary concerns or black or bloody BMs. She reports she smokes 1/2 ppd of cigarettes, smokes marijuana daily and rare drinks alcohol. In the ED leukocytosis noted at 14,100 , lactate 1.6, Na 138, K+ 5.1 BC obtained as well as wound cultures. She was treated with Vancomycin and Clindamycin in the ED along with IVFs. She was admitted inpatient secondary to abdominal cellulitis and possible abscess. Diagnosis: Stroke: No - Discharge Data Discharge Date: 02/25/19 Discharge Disposition: Home, Self-Care 01 Condition: Good - Discharge Diagnosis/Problem(s) (1) Cellulitis SNOMED Code(s): 795671061 ICD Code: L03.90 - CELLULITIS, UNSPECIFIED Status: Acute Current Visit: Yes Qualifiers: Site of cellulitis: trunk Site of cellulitis of trunk: abdominal wall Qualified Code(s): L03.311 - Cellulitis of abdominal wall (2) Tobacco abuse SNOMED Code(s): 566936187 ICD Code: Z72.0 - TOBACCO USE Status: Chronic Current Visit: Yes (3) Obesity SNOMED Code(s): 863721888, 913045970 ICD Code: E66.9 - OBESITY, UNSPECIFIED Status: Chronic Current Visit: Yes - Patient Summary/Data Operative Procedure(s) Performed: Incision and drainage of abdominal wall abscess Consults: Consultations 02/22/19 14:21 Consult to Physician [CONS] Routine - Patient Instructions Diet: Regular Diet as Tolerated Activity: As Tolerated Showering/Bathing: May Shower, No Tub Bathing/Swimming Wound/Incision Care: Change Dressing Daily Notify Provider of: Fever, Increased Pain, Swelling and Redness, Drainage, Nausea and/or Vomiting - Discharge Plan *PRESCRIPTION DRUG MONITORING PROGRAM REVIEWED*: Not Applicable *COPY OF PRESCRIPTION DRUG MONITORING REPORT IN PATIENT ARABELLA: Not Applicable Prescriptions/Med Rec: oxyCODONE 5 mg PO Q6H PRN #15 tablet PRN Reason: Pain (Moderate 4-6) Sulfamethoxazole/Trimethoprim [Bactrim Ds Tablet] 1 each PO BID #16 tablet Home Medications: Home Meds Sulfamethoxazole/Trimethoprim [Bactrim Ds Tablet] 1 each PO BID #16 tablet 02/25 [Rx] oxyCODONE 5 mg PO Q6H PRN #15 tablet 02/25/19 [Rx] Oxygen Therapy Mode: Room Air Patient Handouts: Cellulitis, Adult, Oxycodone tablets or capsules, Incision Care, Adult, [id number], Sulfamethoxazole; Trimethoprim, SMX-TMP tablets Referrals: Cyndi Short MD [Physician] - 03/07/19 1:15 pm David Barksdale MD [Physician] - 03/07/19 10:00 am - Discharge Summary/Plan Comment DC Time >30 min.: No Discharge Summary/Plan Comment: Admitting diagnoses: Abdominal wall cellulitis Discharge Diagnoses: Abdominal wall cellulitis and abscess [place] was admitted and treated with Vancomycin and ZOsyn secondary to cellulitis to abdominal wall. Dr Short consulted for surgical intervention when CT revealed possible abscess. She was taken to the OR and abscess was noted, drainage and wound washed out. Cultures revealed MRSA, resistant to Clindamycin. She will be discharged home on Bactrim for 8 more days. She is to continue dressing changes at home, Dr Short demonstrated yesterday. She will follow up with Dr Short in one week. She was encouraged to return to ED if fevers occur, redness worsens or pain and drainage worsen. She verbalized understanding. She is to return to ED or clinic if concerns should arise. - General Info Date of Service: 02/25/19 Admission Dx/Problem (Free Text: Abdominal wall cellulitis with abscess Subjective Update: Eager to go home today. No complaints No chest pain or SOB. Abdomen tenderness if tolerable. No other concerns. Functional Status: Reports: Pain Controlled, Tolerating Diet, Ambulating - Review of Systems General: Reports: No Symptoms. Denies: Fever, Weakness, Fatigue HEENT: Reports: No Symptoms. Denies: Headaches, Rhinitis, Visual Changes Pulmonary: Reports: No Symptoms. Denies: Shortness of Breath Cardiovascular: Reports: No Symptoms. Denies: Chest Pain Gastrointestinal: Reports: No Symptoms. Denies: Abdominal Pain, Nausea, Vomiting Genitourinary: Reports: No Symptoms Musculoskeletal: Reports: No Symptoms Skin: Reports: Other (abdominal wound pain, tolerable.) Neurological: Reports: No Symptoms Psychiatric: Reports: No Symptoms - Patient Data Vitals - Most Recent: Last Vital Signs Temp 98 F 02/25/19 10:07 Pulse 86 02/25/19 10:07 Resp 14 02/25/19 10:07 BP 130/71 02/25/19 10:07 Pulse Ox 96 02/25/19 10:07 Weight - Most Recent: 111.629 kg I&O - Last 24 hours: Intake & Output 02/24/19 02/25/19 02/25/19 22:59 06:59 14:59 Intake Total 980 1375 Output Total 1200 1200 Balance -220 175 Lab Results - Last 24 hrs: Laboratory Results - last 24 hr 02/25/19 02/25/19 Range/Units 05:15 05:15 WBC 8.08 (4.0-11.0) K/uL RBC 4.20 L (4.30-5.90) M/uL Hgb 12.6 (12.0-16.0) g/dL Hct 38.2 (36.0-46.0) % MCV 91.0 (80.0-98.0) fL MCH 30.0 (27.0-32.0) pg MCHC 33.0 (31.0-37.0) g/dL RDW Std Deviation 42.1 (28.0-62.0) fl RDW Coeff of Boby 13 (11.0-15.0) % Plt Count 263 (150-400) K/uL MPV 10.60 (7.40-12.00) fL Neut % (Auto) 57.1 (48.0-80.0) % Lymph % (Auto) 30.1 (16.0-40.0) % [place] % (Auto) 9.2 (0.0-15.0) % Eos % (Auto) 3.5 (0.0-7.0) % Baso % (Auto) 0.1 (0.0-1.5) % Neut # (Auto) 4.6 (1.4-5.7) K/uL Lymph # (Auto) 2.4 (0.6-2.4) K/uL [place] # (Auto) 0.7 (0.0-0.8) K/uL Eos # (Auto) 0.3 (0.0-0.7) K/uL Baso # (Auto) 0.0 (0.0-0.1) K/uL Nucleated RBC % 0.0 /100WBC Nucleated RBCs # 0 K/uL Sodium 142 (136-145) mmol/L Potassium 3.8 (3.5-5.1) mmol/L Chloride 107 (98-107) mmol/L Carbon Dioxide 26.7 (21.0-32.0) mmol/L BUN 5 L (7.0-18.0) mg/dL Creatinine 0.9 (0.6-1.0) mg/dL Est Cr Clr Drug Dosing 75.61 mL/min Estimated GFR (MDRD) > 60.0 ml/min Glucose 105 (74-106) mg/dL Calcium 8.3 L (8.5-10.1) mg/dL XOCHITL Results - Last 24 hrs: Microbiology 02/22/19 09:50 Wound Culture - Final Abdomen - Drainage (Mrsa) Staphylococcus Aureus 02/22/19 11:56 Aerobic Blood Culture - Preliminary Blood - Venous NO GROWTH AFTER 2 DAYS Anaerobic Blood Culture - Final 02/22/19 12:06 Aerobic Blood Culture - Preliminary Blood - Venous - Lab Draw NO GROWTH AFTER 2 DAYS Anaerobic Blood Culture - Final 02/22/19 11:51 Wound Culture - Final Abdomen - Drainage (Mrsa) Staphylococcus Aureus Med Orders - Current: Current Medications Acetaminophen (Tylenol) 650 mg PO Q4H PRN PRN Reason: Pain (Mild 1-3)/fever Last Admin: 02/24/19 08:22 Dose: 650 mg Docusate Sodium (Colace) 100 mg PO BID [facility] Last Admin: 02/25/19 10:09 Dose: 100 mg Enoxaparin Sodium (Lovenox) 40 mg SUBCUT Q24H [facility] Last Admin: 02/24/19 14:04 Dose: 40 mg Vancomycin HCl 1.5 gm/ Sodium (Chloride) 500 mls @ 250 mls/hr IV Q8H [facility] Last Admin: 02/25/19 11:19 Dose: 250 mls/hr Morphine Sulfate (Morphine) 2 mg IVPUSH Q2H PRN PRN Reason: Pain (severe 7-10) Last Admin: 02/25/19 11:15 Dose: 2 mg Ondansetron HCl (Zofran) 4 mg IVPUSH Q4H PRN PRN Reason: Nausea Last Admin: 02/24/19 18:45 Dose: 4 mg Oxycodone HCl (Oxycodone) 5 mg PO Q4H PRN PRN Reason: Pain (moderate 4-6) Last Admin: 02/24/19 17:26 Dose: 5 mg Vancomycin HCl (Pharmacy To Dose - Vancomycin) 1 dose .XX ASDIRECTED [facility] Discontinued Medications Albuterol (Proventil Neb Soln) 2.5 mg NEB ONETIME PRN PRN Reason: Wheezing Atropine Sulfate (Atropine 0.1 Mg/Ml) 0.5 mg IVPUSH ASDIRECTED PRN PRN Reason: Hypo-perfusion Atropine Sulfate (Atropine 0.1 Mg/Ml) 1 mg IVPUSH ASDIRECTED PRN PRN Reason: Hypo-Perfusion Bupivacaine HCl (Marcaine 0.5%) Confirm Administered Dose 30 ml .ROUTE .STK-MED ONE Stop: 02/23/19 08:47 Dextrose/Water (Dextrose 50% In Water) 50 ml IVPUSH ASDIRECTED PRN PRN Reason: Hypoglycemia Diphenhydramine HCl (Benadryl) 12.5 mg IVPUSH .ONETIME PRN PRN Reason: Nausea Last Admin: 02/23/19 09:33 Dose: 12.5 mg Epinephrine HCl (Epinephrine 1:10,000) 1 mg IVPUSH ASDIRECTED PRN PRN Reason: ACLS Guidelines Famotidine (Pepcid) 20 mg IVPUSH .ONETIME PRN PRN Reason: Nausea Last Admin: 02/23/19 09:34 Dose: 20 mg Fentanyl (Sublimaze) Confirm Administered Dose 100 mcg .ROUTE .STK-MED ONE Stop: 02/23/19 07:41 Fentanyl (Sublimaze) 50 - 100 mcg IVPUSH Q5M PRN PRN Reason: Pain Clindamycin Phosphate 300 mg/ (Sodium Chloride) 52 mls @ 100 mls/hr IV ONETIME ONE Stop: 02/22/19 12:00 Last Admin: 02/22/19 12:14 Dose: Not Given Sodium Chloride (Normal Saline) 1,000 mls @ 125 mls/hr IV STAT SHAYE Last Admin: 02/24/19 01:54 Dose: 125 mls/hr Vancomycin HCl 1 gm/ Sodium (Chloride) 250 mls @ 250 mls/hr IV ONETIME ONE Stop: 02/22/19 12:28 Last Admin: 02/22/19 12:55 Dose: 250 mls/hr Clindamycin Phosphate 300 mg/ (Premix) 50 mls @ 96.154 mls/hr IV ONETIME ONE Stop: 02/22/19 12:16 Last Admin: 02/22/19 12:11 Dose: 96.154 mls/hr Piperacillin Sod/Tazobactam (Sod 3.375 gm/ Sodium Chloride) 50 mls @ 100 mls/ hr IV Q6H SHAYE Last Admin: 02/24/19 08:11 Dose: 100 mls/hr Iopamidol (Isovue Multipack-370 (76%)) 100 ml IVPUSH ONETIME STA Stop: 02/22/19 17:25 Last Admin: 02/22/19 17:25 Dose: 100 ml Ketamine HCl (Ketalar) Confirm Administered Dose 500 mg .ROUTE .STK-MED ONE Stop: 02/23/19 08:14 Lidocaine (Xylocaine-Mpf 2%) Confirm Administered Dose 5 ml .ROUTE .STK-MED ONE Stop: 02/23/19 07:41 Midazolam HCl (Versed 1 Mg/Ml) Confirm Administered Dose 2 mg .ROUTE .STK-MED ONE Stop: 02/23/19 07:41 Morphine Sulfate (Morphine) 2 mg IVPUSH ONETIME ONE Stop: 02/22/19 11:30 Last Admin: 02/22/19 12:06 Dose: 2 mg Naloxone HCl (Narcan) 0.1 mg IVPUSH ASDIRECTED PRN PRN Reason: Respiratory Depression Ondansetron HCl (Zofran) Confirm Administered Dose 4 mg .ROUTE .STK-MED ONE Stop: 02/23/19 07:41 Propofol (Diprivan 20 Ml) Confirm Administered Dose 200 mg .ROUTE .STK-MED ONE Stop: 02/23/19 07:41 - Exam General: Reports: Alert, Oriented, Cooperative, No Acute Distress Lungs: Reports: Clear to Auscultation, Normal Respiratory Effort Cardiovascular: Reports: Regular Rate, Regular Rhythm GI/Abdominal Exam: Normal Bowel Sounds, Non-Tender, No Organomegaly, No Distention Extremities: Normal Inspection, Normal Range of Motion, Non-Tender, No Pedal Edema Wound/Incisions: Reports: Healing Well, Dressing Dry and Intact, Drainage ( serous drainage to abdominal fold), Erythema Improving Neurological: Reports: No New Focal Deficit Psy/Mental Status: Reports: Alert, Normal Affect, Normal Mood
[2019-02-25] MEDS: Enoxaparin 40 MG/0.4 ML Syringe SUBCUT SCH (14:30)
== END 2019-02-25 14:15 | disposition home or self-care (01) | DRG 581 ==
LOC: MW.ED 11:09 → EEVIPCON 12:09 → MW.MS 12:09
PROVIDERS: ADMIT Internal Medicine; ATTEND Internal Medicine
PROC: 0W9F0ZZ Drainage of Abdominal Wall, Open Approach (ICD-10-PCS; principal; 2019-02-23)
DX: L03.311 Cellulitis of abdominal wall (principal); F17.210 Nicotine dependence, cigarettes, uncomplicated; L02.211 Cutaneous abscess of abdominal wall; E66.9 Obesity, unspecified; B95.62 Methicillin resistant Staphylococcus aureus infection as the cause of diseases classified elsewhere; Z16.29 Resistance to other single specified antibiotic
CPT/HCPCS: 36415; 74177; 74177-26; 80048; 80053; 80202; 83605; 84703; 85025; 87040; 87070; 87075; 87077; 87186; 96374; 96375; 99283; 99284-25; A4217; A9270-GY; J1200; J1650; J2001; J2250; J2270; J2405; J2543; J2704; J3010; J3370; J3490; J7040; J7050; Q9967

== ENCOUNTER 2019-08-12 09:08 | Emergency (ER) | payer OTHER, SELFPAY ==
--- NOTE | 2019-08-12 09:23 | EDM.PDOC ---
ED HPI GENERAL MEDICAL PROBLEM - General Chief Complaint: Skin Complaint Stated Complaint: SORE BEHIND RT EAR Time Seen by Provider: 08/12/19 09:16 Source of Information: Reports: Patient History Limitations: Reports: No Limitations - History of Present Illness INITIAL COMMENTS - FREE TEXT/NARRATIVE: History of present illness: []Patient has had 3 days of redness and tenderness behind her right ear. She denies any fevers or chills she has been unable to express any fluid from the lesion in the area of redness is starting to spread. She has a history of MRSA. Review of systems: As per history of present illness and below otherwise all systems reviewed and negative. Past medical history: As per history of present illness and as reviewed below otherwise noncontributory. Surgical history: As per history of present illness and as reviewed below otherwise noncontributory. Social history: No reported history of drug or alcohol abuse. Family history: As per history of present illness and as reviewed below otherwise noncontributory. Physical exam: General: Well developed, well nourished in NAD HEENT: Posterior reticular erythematous lesion that is 4 cm x 4 cm, there is no fluctuance it is hard and indurated warm to palpation and erythematous, is a scabbed head in the center of the lesion where patient has been picking at it there is no purulent drainage from this. normocephalic, pupils reactive, negative for conjunctival pallor or scleral icterus, mucous membranes moist, throat clear, neck supple, nontender, trachea midline. Lungs: Clear to auscultation, breath sounds equal bilaterally, chest nontender. Heart: S1S2, regular, negative for clicks, rubs, or JVD. Abdomen: NABS, Soft, nondistended, nontender. Negative for masses or hepatosplenomegaly. Negative for costovertebral tenderness. Pelvis: Stable nontender. Genitourinary: Deferred. Rectal: Deferred. Extremities: Atraumatic, negative for cords or calf pain. Neurovascular unremarkable. Neuro: Awake, alert, oriented. Cranial nerves II through XII unremarkable. Cerebellum unremarkable. Motor and sensory unremarkable throughout. Exam nonfocal. Skin:warm and dry Diagnostics: None Therapeutics: None ED Course: Stable Impression: right posterior reticular Indurated abscess Prescriptions: bactrim, diclofenac Plan: Take meds as directed, follow up with your primary care physician, return to ER if symptoms worsen or change. Definitive disposition and diagnosis as appropriate pending reevaluation and review of above. left ear Pain Score (Numeric/FACES): 8 - Related Data Allergies Allergy/AdvReac Type Severity Reaction Status Date / Time No Known Allergies Allergy Verified 08/12/19 09:14 Home Meds: Home Meds Diclofenac Sodium [Voltaren] 75 mg PO BIDMEALS PRN #20 tab.cr 08/12/19 [Rx] Sulfamethoxazole/Trimethoprim [Bactrim Ds Tablet] 1 each PO BID #20 tablet 08/12 [Rx] Past Medical History - Past Health History Medical/Surgical History: Denies Medical/Surgical History Cardiovascular History: Reports: None Respiratory History: Reports: None Gastrointestinal History: Reports: GERD Musculoskeletal History: Reports: None Neurological History: Reports: None Psychiatric History: Reports: None Endocrine/Metabolic History: Reports: Obesity/BMI 30+. Denies: Diabetes, Type II, Hypothyroidism Dermatologic History: Reports: Other (See Below) Other Dermatologic History: MRSA abscess - Infectious Disease History Infectious Disease History: Reports: Chicken Pox, MRSA Social & Family History - Family History Family Medical History: Noncontributory - Tobacco Use Smoking Status *Q: Current Every Day Smoker Years of Tobacco use: 15 Packs/Tins Daily: 0.5 - Caffeine Use Caffeine Use: Reports: Coffee, Energy Drinks, Soda, Tea Caffeine Use Comment: 2-3 cans of soda/day - Recreational Drug Use Recreational Drug Use: Yes Drug Use in Last 12 Months: Yes Recreational Drug Type: Reports: Marijuana/Hashish Recreational Drug Use Frequency: Daily ED ROS GENERAL - Review of Systems Review Of Systems: See Below ED EXAM, SKIN/RASH Exam: See Below Course - Vital Signs Last Recorded V/S: Last Vital Signs Temp 96.5 F 08/12/19 09:15 Pulse 106 H 08/12/19 09:15 Resp 18 08/12/19 09:15 BP 153/99 H 08/12/19 09:15 Pulse Ox 99 08/12/19 09:15 Departure - Departure Time of Disposition: 09:30 Disposition: Home, Self-Care 01 Condition: Good Clinical Impression: Abscess - Discharge Information *PRESCRIPTION DRUG MONITORING PROGRAM REVIEWED*: No *COPY OF PRESCRIPTION DRUG MONITORING REPORT IN PATIENT ARABELLA: No Prescriptions: Diclofenac Sodium [Voltaren] 75 mg PO BIDMEALS PRN #20 tab.cr PRN Reason: Pain Sulfamethoxazole/Trimethoprim [Bactrim Ds Tablet] 1 each PO BID #20 tablet Referrals: PCP,None [Primary Care Provider] - Forms: ED Department Discharge Additional Instructions: The following information is given to patients seen in the emergency department who are being discharged to home. This information is to outline your options for follow-up care. We provide all patients seen in our emergency department with a follow-up referral. The need for follow-up, as well as the timing and circumstances, are variable depending upon the specifics of your emergency department visit. If you don't have a primary care physician on staff, we will provide you with a referral. We always advise you to contact your personal physician following an emergency department visit to inform them of the circumstance of the visit and for follow-up with them and/or the need for any referrals to a consulting specialist. The emergency department will also refer you to a specialist when appropriate. This referral assures that you have the opportunity for follow-up care with a specialist. All of these measure are taken in an effort to provide you with optimal care, which includes your follow-up. Under all circumstances we always encourage you to contact your private physician who remains a resource for coordinating your care. When calling for follow-up care, please make the office aware that this follow-up is from your recent emergency room visit. If for any reason you are refused follow-up, please contact the [facility] Emergency Department at and asked to speak to the emergency department charge nurse. Take meds as directed, follow up with your primary care physician, return to ER if symptoms worsen or change. [facility] [address] [place] [id number]
== END 2019-08-12 09:42 | disposition home or self-care (01) ==
LOC: MW.ED 09:08
DX: H60.01 Abscess of right external ear (principal); F17.210 Nicotine dependence, cigarettes, uncomplicated; E66.9 Obesity, unspecified; Z68.37 Body mass index [BMI] 37.0-37.9, adult
CPT/HCPCS: 99282; 99283

== ENCOUNTER 2019-08-13 16:40 | Inpatient (IN) | payer OTHER, SELFPAY ==
[2019-08-13] MEDS ORDERED: Sodium Chloride 0.9% 2.5 ML Syringe FLUSH PRN (16:41)
[2019-08-13] MEDS ORDERED: Clindamycin Phosphate in D5W 600 MG in Premix Bag 50 BAG IV ONE ×2 (16:41)
[2019-08-13] MEDS ORDERED: Sodium Chloride 0.9% 10 ML Syringe FLUSH PRN (16:41)
[2019-08-13] MEDS ORDERED: Ondansetron 4 MG/2 ML SDV IVPUSH ONE (16:49)
[2019-08-13] MEDS ORDERED: Morphine 4 MG/ML Syringe IVPUSH ONE (16:49)
--- NOTE | 2019-08-13 16:50 | EDM.PDOC ---
ED HPI GENERAL MEDICAL PROBLEM - General Chief Complaint: Skin Complaint Stated Complaint: SORE BEHIND EAR Time Seen by Provider: 08/13/19 16:40 Source of Information: Reports: Patient History Limitations: Reports: No Limitations - History of Present Illness INITIAL COMMENTS - FREE TEXT/NARRATIVE: History of present illness: []Patient was seen yesterday for an abscess behind her right ear that started 4 days ago. Yesterday the lesion was firm and indurated without fluctuance. She was put on antibiotics and returned today for worsening pain that is now radiating further down her neck. She has had MRSA in the past. Review of systems: As per history of present illness and below otherwise all systems reviewed and negative. Past medical history: As per history of present illness and as reviewed below otherwise noncontributory. Surgical history: As per history of present illness and as reviewed below otherwise noncontributory. Social history: No reported history of drug or alcohol abuse. Family history: As per history of present illness and as reviewed below otherwise noncontributory. Physical exam: General: Well developed, well nourished in NAD HEENT: Atraumatic, normocephalic, pupils reactive, negative for conjunctival pallor or scleral icterus, mucous membranes moist, throat clear, neck supple, right posterior auricular area with erythematous tender lesion withoud fluctuance or drainage, no dyspnea, trachea midline. Lungs: Clear to auscultation, breath sounds equal bilaterally, chest nontender. Heart: S1S2, regular, negative for clicks, rubs, or JVD. Abdomen: NABS, Soft, nondistended, nontender. Negative for masses or hepatosplenomegaly. Negative for costovertebral tenderness. Pelvis: Stable nontender. Genitourinary: Deferred. Rectal: Deferred. Extremities: Atraumatic, negative for cords or calf pain. Neurovascular unremarkable. Neuro: Awake, alert, oriented. Cranial nerves II through XII unremarkable. Cerebellum unremarkable. Motor and sensory unremarkable throughout. Exam nonfocal. Skin:warm and dry Diagnostics: Blood cultures, CBC, CT neck-no fluid collection, +stranding and inflamm Therapeutics: IV clindamycin, morphine, Zofran ED Course: stable, Dr. Guerrero accepts patient for IV antibiotics Impression: cellulitis right scalp, failed outpatient antibiotics Prescriptions: Plan: admitted Definitive disposition and diagnosis as appropriate pending reevaluation and review of above. I will notify you that part is no fluid levels you know if I did send word but is no Behind Right Ear Pain Score (Numeric/FACES): 10 - Related Data Allergies Allergy/AdvReac Type Severity Reaction Status Date / Time No Known Allergies Allergy Verified 08/13/19 16:51 Home Meds: Home Meds Diclofenac Sodium [Voltaren] 75 mg PO BIDMEALS PRN #20 tab.cr 08/12/19 [Rx] Sulfamethoxazole/Trimethoprim [Bactrim Ds Tablet] 1 each PO BID #20 tablet 08/12 [Rx] Past Medical History - Past Health History Medical/Surgical History: Denies Medical/Surgical History Cardiovascular History: Reports: None Respiratory History: Reports: None Gastrointestinal History: Reports: GERD Musculoskeletal History: Reports: None Neurological History: Reports: None Psychiatric History: Reports: None Endocrine/Metabolic History: Reports: Obesity/BMI 30+. Denies: Diabetes, Type II, Hypothyroidism Dermatologic History: Reports: Other (See Below) Other Dermatologic History: MRSA abscess - Infectious Disease History Infectious Disease History: Reports: Chicken Pox, MRSA Social & Family History - Family History Family Medical History: Noncontributory - Caffeine Use Caffeine Use: Reports: Coffee, Energy Drinks, Soda, Tea Caffeine Use Comment: 2-3 cans of soda/day ED ROS GENERAL - Review of Systems Review Of Systems: See Below ED EXAM, SKIN/RASH Exam: See Below Course - Vital Signs Last Recorded V/S: Last Vital Signs Temp 99.0 F 08/13/19 16:51 Pulse 109 H 08/13/19 16:51 Resp 18 08/13/19 16:51 BP 120/78 08/13/19 16:51 Pulse Ox 97 08/13/19 16:51 - Orders/Labs/Meds Orders: Active Orders 24 hr Category Date Time Status CBC WITH AUTO DIFF [HEME] Stat Lab 08/13/19 16:45 Ordered CULTURE BLOOD [BC] Stat Lab 08/13/19 16:48 Ordered CULTURE BLOOD [BC] Stat Lab 08/13/19 16:48 Ordered Sodium Chloride 0.9% [Saline Flush] Med 08/13/19 16:41 Active 10 ml FLUSH ASDIRECTED PRN Sodium Chloride 0.9% [Saline Flush] Med 08/13/19 16:41 Active 2.5 ml FLUSH ASDIRECTED PRN Blood Culture x2 Reflex Set [OM.PC] Stat Oth 08/13/19 16:48 Ordered Saline Lock Insert [OM.PC] Stat Oth 08/13/19 16:41 Ordered Medication Orders Sodium Chloride (Saline Flush) 10 ml FLUSH ASDIRECTED PRN PRN Reason: Keep Vein Open Sodium Chloride (Saline Flush) 2.5 ml FLUSH ASDIRECTED PRN PRN Reason: Keep Vein Open Meds: Medications Generic Name Dose Route Start Last Admin Trade Name Freq PRN Reason Stop Dose Admin Sodium Chloride 10 ml 08/13/19 16:41 Saline Flush FLUSH ASDIRECTED PRN Keep Vein Open Sodium Chloride 2.5 ml 08/13/19 16:41 Saline Flush FLUSH ASDIRECTED PRN Keep Vein Open Discontinued Medications Generic Name Dose Route Start Last Admin Trade Name Freq PRN Reason Stop Dose Admin Clindamycin Phosphate 600 mg/ 50 mls @ 100 mls/hr 08/13/19 16:41 Premix IV 08/13/19 17:10 ONETIME ONE Morphine Sulfate 4 mg 08/13/19 16:49 Morphine IVPUSH 08/13/19 16:50 ONETIME ONE Ondansetron HCl 4 mg 08/13/19 16:49 Zofran IVPUSH 08/13/19 16:50 ONETIME ONE Departure - Departure Time of Disposition: 17:40 Disposition: Admitted As Inpatient 64 Condition: Good Clinical Impression: Cellulitis Qualifiers: Site of cellulitis: trunk Site of cellulitis of trunk: abdominal wall Qualified Code(s): L03.311 - Cellulitis of abdominal wall - Discharge Information *PRESCRIPTION DRUG MONITORING PROGRAM REVIEWED*: Not Applicable *COPY OF PRESCRIPTION DRUG MONITORING REPORT IN PATIENT ARABELLA: Not Applicable Referrals: PCP,Unknown [Primary Care Provider] - Forms: ED Department Discharge - My Orders Last 24 Hours: My Active Orders 08/13/19 16:41 Sodium Chloride 0.9% [Saline Flush] 10 ml FLUSH ASDIRECTED PRN Sodium Chloride 0.9% [Saline Flush] 2.5 ml FLUSH ASDIRECTED PRN Saline Lock Insert [OM.PC] Stat 08/13/19 16:45 CBC WITH AUTO DIFF [HEME] Stat 08/13/19 16:48 CULTURE BLOOD [BC] Stat CULTURE BLOOD [BC] Stat Blood Culture x2 Reflex Set [OM.PC] Stat - Assessment/Plan Last 24 Hours: My Active Orders 08/13/19 16:41 Sodium Chloride 0.9% [Saline Flush] 10 ml FLUSH ASDIRECTED PRN Sodium Chloride 0.9% [Saline Flush] 2.5 ml FLUSH ASDIRECTED PRN Saline Lock Insert [OM.PC] Stat 08/13/19 16:45 CBC WITH AUTO DIFF [HEME] Stat 08/13/19 16:48 CULTURE BLOOD [BC] Stat CULTURE BLOOD [BC] Stat Blood Culture x2 Reflex Set [OM.PC] Stat
--- NOTE | 2019-08-13 17:35 | CT ---
INDICATION: Pain and swelling from possible abscess in the right mastoid area, worsening over the past few days. COMPARISON: None available TECHNIQUE: CT examination of the neck is performed using spiral technique without contrast administration. 3 mm thick axial sections were made along with coronal and sagittal sections. Please note that all CT scans at this facility use dose modulation, iterative reconstruction, and/or weight-based dosing when appropriate to reduce radiation dose to as low as reasonably achievable. FINDINGS: There is poorly defined inflammatory soft tissue stranding in the subcutaneous tissues overlying the right mastoid and extending posteriorly into the occipital region. The area of maximal soft tissues stranding measures approximately 2.8 centimeters in diameter. There is no sign of any focal fluid collection to suggest an abscess. There is no sign of any gas or foreign body in the soft tissues. The findings are that of cellulitis. There is mild prominence of the few small lymph nodes nearby consistent with reactive nodes. There is no sign of underlying mastoiditis or osteomyelitis. There is no sign of involvement of the external auditory canal or definite involvement of the external ear. There is mild prominence of right submandibular, right superior jugular chain, and right posterior triangle lymph nodes, consistent with reactive nodes, without adenopathy. There is no sign of no additional cervical mass or adenopathy on today`s study. The airway structures are normal in appearance. The salivary glands are normal in appearance. The visualized posterior fossa, mastoids, skull base, orbits, and paranasal sinuses are normal in appearance. The great vessels are unremarkable. The thyroid gland is normal in appearance. The visualized upper chest is clear. The visualized upper mediastinum is normal in appearance. The osseous structures are unremarkable. IMPRESSION: Cellulitis overlying the right mastoid and extending posteriorly into the occipital region, with no sign of any abscess, foreign body, or soft tissue gas. Mild local subcutaneous reactive lymph nodes as well as mild reactive lymph nodes in the right submandibular, superior jugular chain, and posterior triangle regions. Please note that all CT scans at this facility use dose modulation, iterative reconstruction, and/or weight-based dosing when appropriate to reduce radiation dose to as low as reasonably achievable. Dictated by Morgan Diaz MD @ Aug 13 2019 5:26PM Signed by Dr. Morgan Diaz @ Aug 13 2019 5:33PM
[2019-08-13] MEDS ORDERED: Acetaminophen 325 MG Tab PO PRN (18:57)
[2019-08-13] MEDS ORDERED: Ondansetron 4 MG/2 ML SDV IVPUSH PRN (18:57)
[2019-08-13] MEDS ORDERED: Vancomycin 1.5 GM in Sodium Chloride 0.9% 500 ML IV ONE (20:00)
[2019-08-13 20:03] LABS: BLOOD UREA NITROGEN,BUN 12 mg/dL (7.0-18.0); CARBON DIOXIDE,CO2 26.2 mmol/L (21.0-32.0); CHLORIDE,CL 108 mmol/L (98-107); GLUCOSE RANDOM 114 mg/dL (74-106); POTASSIUM,K 3.9 mmol/L (3.5-5.1); SODIUM,NA 143 mmol/L (136-145)
[2019-08-13] MEDS: Morphine 2 MG/ML Syringe IVPUSH PRN (20:49)
--- NOTE | 2019-08-13 21:30 | PCM.HP.2 ---
H&P History of Present Illness - General Date of Service: 08/13/19 Admit Problem/Dx: Admission Diagnosis/Problem Admission Diagnosis/Problem Cellulitis - History of Present Illness Initial Comments - Free Text/Narative: 28 yo female who presents with two day history of rash behind her right ear. She was seen in the ED and given bactrim two days ago. She reports the redness , swelling and pain has gotten worse. CT scan of neck was consistent with cellulitis. No abscess seen. 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 Behind Right Ear Pain Score (Numeric/FACES): 10 - Related Data Allergies/Adverse Reactions: Allergies Allergy/AdvReac Type Severity Reaction Status Date / Time No Known Allergies Allergy Verified 08/13/19 18:41 Home Medications: Home Meds Diclofenac Sodium [Voltaren] 75 mg PO BIDMEALS PRN #20 tab.cr 08/12/19 [Rx] Sulfamethoxazole/Trimethoprim [Bactrim Ds Tablet] 1 each PO BID #20 tablet 08/12 [Rx] Past Medical History - Past Health History Medical/Surgical History: Denies Medical/Surgical History Cardiovascular History: Reports: None Respiratory History: Reports: None Gastrointestinal History: Reports: GERD Musculoskeletal History: Reports: None Neurological History: Reports: None Psychiatric History: Reports: None Endocrine/Metabolic History: Reports: Obesity/BMI 30+ Dermatologic History: Reports: Other (See Below) Other Dermatologic History: MRSA abscess - Infectious Disease History Infectious Disease History: Reports: Chicken Pox, MRSA Social & Family History - Family History Family Medical History: Noncontributory - Tobacco Use Smoking Status *Q: Current Every Day Smoker Years of Tobacco use: 15 Packs/Tins Daily: 1 Used Tobacco, but Quit: No Second Hand Smoke Exposure: No - Caffeine Use Caffeine Use: Reports: Coffee, Soda Caffeine Use Comment: 2-3 cans of soda/day - Recreational Drug Use Recreational Drug Use: Yes Drug Use in Last 12 Months: Yes Recreational Drug Type: Reports: Methamphetamine Recreational Drug Use Frequency: Daily Recreational Drug Last Use: Daily H&P Review of Systems - Review of Systems: Review Of Systems: ROS reveals no pertinent complaints other than HPI. Exam - Exam Exam: See Below - Vital Signs Vital Signs: Last Vital Signs Temp 36.3 C 08/13/19 21:01 Pulse 76 08/13/19 21:01 Resp 16 08/13/19 21:01 BP 115/65 08/13/19 21:01 Pulse Ox 99 08/13/19 21:01 Weight: 104.2 kg - Exam General: Alert, Oriented HEENT: Mucosa Moist & Omar Neck: Supple, Full Range of Motion, Other (3 cm area of induration redness behind the ear, no area of fluctuance or dranage) Lungs: Clear to Auscultation, Normal Respiratory Effort Cardiovascular: Regular Rate, Systolic Murmur GI/Abdominal Exam: Soft, Non-Tender Extremities: Non-Tender, No Pedal Edema - Patient Data Lab Results Last 24 hrs: Laboratory Results - last 24 hr 08/13/19 08/13/19 08/13/19 Range/Units 17:45 17:45 17:46 WBC 10.11 (4.0-11.0) K/uL RBC 4.64 (4.30-5.90) M/uL Hgb 14.3 (12.0-16.0) g/dL Hct 41.7 (36.0-46.0) % MCV 89.9 (80.0-98.0) fL MCH 30.8 (27.0-32.0) pg MCHC 34.3 (31.0-37.0) g/dL RDW Std Deviation 42.5 (28.0-62.0) fl RDW Coeff of Boby 13 (11.0-15.0) % Plt Count 248 (150-400) K/uL MPV 10.80 (7.40-12.00) fL Neut % (Auto) 78.1 (48.0-80.0) % Lymph % (Auto) 9.6 L (16.0-40.0) % [place] % (Auto) 8.3 (0.0-15.0) % Eos % (Auto) 3.8 (0.0-7.0) % Baso % (Auto) 0.2 (0.0-1.5) % Neut # (Auto) 7.9 H (1.4-5.7) K/uL Lymph # (Auto) 1.0 (0.6-2.4) K/uL [place] # (Auto) 0.8 (0.0-0.8) K/uL Eos # (Auto) 0.4 (0.0-0.7) K/uL Baso # (Auto) 0.0 (0.0-0.1) K/uL Nucleated RBC % 0.0 /100WBC Nucleated RBCs # 0 K/uL Sodium 143 (136-145) mmol/L Potassium 3.9 (3.5-5.1) mmol/L Chloride 108 H (98-107) mmol/L Carbon Dioxide 26.2 (21.0-32.0) mmol/L BUN 12 (7.0-18.0) mg/dL Creatinine 1.0 (0.6-1.0) mg/dL Est Cr Clr Drug Dosing 68.05 mL/min Estimated GFR (MDRD) > 60.0 ml/min Glucose 114 H (74-106) mg/dL Calcium 8.8 (8.5-10.1) mg/dL HCG, Qual NEGATIVE (NEG) Result Diagrams: 08/14/19 06:25 08/14/19 06:25 Problem List Initiated/Reviewed/Updated: Yes Orders Last 24hrs: Active Orders 24 hr Category Date Time Status Patient Status [ADT] Stat ADT 08/13/19 17:39 Active Antiembolic Devices [RC] PER UNIT ROUTINE Care 08/13/19 21:24 Ordered Oxygen Therapy [RC] PRN Care 08/13/19 21:23 Ordered Up ad Natali [RC] ASDIRECTED Care 08/13/19 21:23 Ordered VTE/DVT Education [RC] PER UNIT ROUTINE Care 08/13/19 21:23 Ordered Vital Signs [RC] Q4H Care 08/13/19 21:23 Ordered Regular Diet [DIET] Diet 08/14/19 Breakfast Active BASIC METABOLIC PANEL,BMP [CHEM] AM Lab 08/14/19 05:11 Ordered CBC WITH AUTO DIFF [HEME] AM Lab 08/14/19 05:11 Ordered CULTURE BLOOD [BC] Stat Lab 08/13/19 16:48 Received CULTURE BLOOD [BC] Stat Lab 08/13/19 18:05 Received Acetaminophen [Tylenol] Med 08/13/19 18:57 Active 650 mg PO Q4H PRN Ibuprofen [Motrin] Med 08/13/19 18:57 Active 400 mg PO Q6H PRN Morphine Med 08/13/19 18:57 Active 2 mg IVPUSH Q4H PRN Ondansetron [Zofran] Med 08/13/19 18:57 Active 4 mg IVPUSH Q4H PRN Sodium Chloride 0.9% [Saline Flush] Med 08/13/19 16:41 Active 10 ml FLUSH ASDIRECTED PRN Sodium Chloride 0.9% [Saline Flush] Med 08/13/19 16:41 Active 2.5 ml FLUSH ASDIRECTED PRN Vancomycin 1 gm Med 08/13/19 19:15 Pending Sodium Chloride 0.9% [Normal Saline (AdvBag)] 250 ml IV Q12H Vancomycin 1.5 gm Med 08/13/19 20:00 Active Sodium Chloride 0.9% [Normal Saline] 500 ml IV ONETIME Blood Culture x2 Reflex Set [OM.PC] Stat Oth 08/13/19 16:48 Ordered Saline Lock Insert [OM.PC] Stat Oth 08/13/19 16:41 Ordered Sequential Compression Device [OM.PC] Per Unit Routine Oth 08/13/19 21:24 Ordered Resuscitation Status Routine Resus Stat 08/13/19 21:23 Ordered Medication Orders Acetaminophen (Tylenol) 650 mg PO Q4H PRN PRN Reason: Pain Vancomycin HCl 1 gm/ Sodium (Chloride) 250 mls @ 166 mls/hr IV Q12H SHAYE Vancomycin HCl 1.5 gm/ Sodium (Chloride) 500 mls @ 333.333 mls/hr IV ONETIME ONE Stop: 08/13/19 21:29 Last Admin: 08/13/19 20:49 Dose: 333.333 mls/hr Ibuprofen (Motrin) 400 mg PO Q6H PRN PRN Reason: Pain Morphine Sulfate (Morphine) 2 mg IVPUSH Q4H PRN PRN Reason: Pain (severe 7-10) Last Admin: 08/13/19 20:49 Dose: 2 mg Ondansetron HCl (Zofran) 4 mg IVPUSH Q4H PRN PRN Reason: Nausea/Vomiting Sodium Chloride (Saline Flush) 10 ml FLUSH ASDIRECTED PRN PRN Reason: Keep Vein Open Last Admin: 08/13/19 17:50 Dose: 10 ml Sodium Chloride (Saline Flush) 2.5 ml FLUSH ASDIRECTED PRN PRN Reason: Keep Vein Open Last Admin: 08/13/19 17:50 Dose: 2.5 ml Assessment/Plan Comment:: 28 yo female admitted for right post auricular cellulitis. We will treat with vancomycin
[2019-08-13] MEDS: Ibuprofen 400 MG Tab PO PRN (22:35)
[2019-08-14] MEDS: Morphine 2 MG/ML Syringe IVPUSH PRN ×5 (00:59→21:58)
[2019-08-14 07:20] LABS: BLOOD UREA NITROGEN,BUN 6 mg/dL (7.0-18.0); CARBON DIOXIDE,CO2 26.4 mmol/L (21.0-32.0); CHLORIDE,CL 105 mmol/L (98-107); GLUCOSE RANDOM 90 mg/dL (74-106); POTASSIUM,K 3.9 mmol/L (3.5-5.1); SODIUM,NA 141 mmol/L (136-145)
--- NOTE | 2019-08-14 09:00 | PCM.PN ---
- General Info Date of Service: 08/14/19 - Review of Systems Systems Review Comment:: still reports skin tightness around neck - Patient Data Vitals - Most Recent: Last Vital Signs Temp 36.2 C 08/14/19 07:30 Pulse 69 08/14/19 07:30 Resp 16 08/14/19 07:30 BP 112/59 L 08/14/19 07:30 Pulse Ox 98 08/14/19 07:30 Weight - Most Recent: 104.2 kg I&O - Last 24 Hours: Intake & Output 08/13/19 08/14/19 08/14/19 22:59 06:59 14:59 Intake Total 400 Output Total 200 Balance 200 Lab Results Last 24 Hours: Laboratory Results - last 24 hr 08/13/19 08/13/19 08/13/19 Range/Units 17:45 17:45 17:46 WBC 10.11 (4.0-11.0) K/uL RBC 4.64 (4.30-5.90) M/uL Hgb 14.3 (12.0-16.0) g/dL Hct 41.7 (36.0-46.0) % MCV 89.9 (80.0-98.0) fL MCH 30.8 (27.0-32.0) pg MCHC 34.3 (31.0-37.0) g/dL RDW Std Deviation 42.5 (28.0-62.0) fl RDW Coeff of Boby 13 (11.0-15.0) % Plt Count 248 (150-400) K/uL MPV 10.80 (7.40-12.00) fL Neut % (Auto) 78.1 (48.0-80.0) % Lymph % (Auto) 9.6 L (16.0-40.0) % [place] % (Auto) 8.3 (0.0-15.0) % Eos % (Auto) 3.8 (0.0-7.0) % Baso % (Auto) 0.2 (0.0-1.5) % Neut # (Auto) 7.9 H (1.4-5.7) K/uL Lymph # (Auto) 1.0 (0.6-2.4) K/uL [place] # (Auto) 0.8 (0.0-0.8) K/uL Eos # (Auto) 0.4 (0.0-0.7) K/uL Baso # (Auto) 0.0 (0.0-0.1) K/uL Nucleated RBC % 0.0 /100WBC Nucleated RBCs # 0 K/uL Sodium 143 (136-145) mmol/L Potassium 3.9 (3.5-5.1) mmol/L Chloride 108 H (98-107) mmol/L Carbon Dioxide 26.2 (21.0-32.0) mmol/L BUN 12 (7.0-18.0) mg/dL Creatinine 1.0 (0.6-1.0) mg/dL Est Cr Clr Drug Dosing 68.05 mL/min Estimated GFR (MDRD) > 60.0 ml/min Glucose 114 H (74-106) mg/dL POC Glucose (60-110) mg/dL Calcium 8.8 (8.5-10.1) mg/dL HCG, Qual NEGATIVE (NEG) 08/14/19 08/14/19 08/14/19 Range/Units 06:25 06:25 07:39 WBC 10.82 (4.0-11.0) K/uL RBC 4.82 (4.30-5.90) M/uL Hgb 14.9 (12.0-16.0) g/dL Hct 44.3 (36.0-46.0) % MCV 91.9 (80.0-98.0) fL MCH 30.9 (27.0-32.0) pg MCHC 33.6 (31.0-37.0) g/dL RDW Std Deviation 43.9 (28.0-62.0) fl RDW Coeff of Boby 13 (11.0-15.0) % Plt Count 234 (150-400) K/uL MPV 11.40 (7.40-12.00) fL Neut % (Auto) 69.3 (48.0-80.0) % Lymph % (Auto) 14.7 L (16.0-40.0) % [place] % (Auto) 11.6 (0.0-15.0) % Eos % (Auto) 4.1 (0.0-7.0) % Baso % (Auto) 0.3 (0.0-1.5) % Neut # (Auto) 7.5 H (1.4-5.7) K/uL Lymph # (Auto) 1.6 (0.6-2.4) K/uL [place] # (Auto) 1.3 H (0.0-0.8) K/uL Eos # (Auto) 0.4 (0.0-0.7) K/uL Baso # (Auto) 0.0 (0.0-0.1) K/uL Nucleated RBC % 0.0 /100WBC Nucleated RBCs # 0 K/uL Sodium 141 (136-145) mmol/L Potassium 3.9 (3.5-5.1) mmol/L Chloride 105 (98-107) mmol/L Carbon Dioxide 26.4 (21.0-32.0) mmol/L BUN 6 L (7.0-18.0) mg/dL Creatinine 0.9 (0.6-1.0) mg/dL Est Cr Clr Drug Dosing 75.61 mL/min Estimated GFR (MDRD) > 60.0 ml/min Glucose 90 (74-106) mg/dL POC Glucose 84 (60-110) mg/dL Calcium 8.4 L (8.5-10.1) mg/dL HCG, Qual (NEG) Med Orders - Current: Current Medications Acetaminophen (Tylenol) 650 mg PO Q4H PRN PRN Reason: Pain Heparin Sodium (Porcine) (Heparin Sodium) 5,000 units SUBCUT Q8H SHAYE Vancomycin HCl 1.5 gm/ Premix 300 mls @ 300 mls/hr IV Q12H [facility] Last Admin: 08/14/19 08:41 Dose: 300 mls/hr Ibuprofen (Motrin) 400 mg PO Q6H PRN PRN Reason: Pain Last Admin: 08/13/19 22:35 Dose: 400 mg Morphine Sulfate (Morphine) 2 mg IVPUSH Q4H PRN PRN Reason: Pain (severe 7-10) Last Admin: 08/14/19 06:11 Dose: 2 mg Ondansetron HCl (Zofran) 4 mg IVPUSH Q4H PRN PRN Reason: Nausea/Vomiting Sodium Chloride (Saline Flush) 10 ml FLUSH ASDIRECTED PRN PRN Reason: Keep Vein Open Last Admin: 08/13/19 17:50 Dose: 10 ml Sodium Chloride (Saline Flush) 2.5 ml FLUSH ASDIRECTED PRN PRN Reason: Keep Vein Open Last Admin: 08/13/19 17:50 Dose: 2.5 ml Vancomycin HCl (Pharmacy To Dose - Vancomycin) 1 dose .XX ASDIRECTED SHAYE Discontinued Medications Clindamycin Phosphate 600 mg/ (Premix) 50 mls @ 100 mls/hr IV ONETIME ONE Stop: 08/13/19 17:10 Last Admin: 08/13/19 18:08 Dose: 100 mls/hr Vancomycin HCl 1.5 gm/ Sodium (Chloride) 500 mls @ 333.333 mls/hr IV ONETIME ONE Stop: 08/13/19 21:29 Last Admin: 08/13/19 20:49 Dose: 333.333 mls/hr Morphine Sulfate (Morphine) 4 mg IVPUSH ONETIME ONE Stop: 08/13/19 16:50 Last Admin: 08/13/19 17:50 Dose: 4 mg Ondansetron HCl (Zofran) 4 mg IVPUSH ONETIME ONE Stop: 08/13/19 16:50 Last Admin: 08/13/19 17:48 Dose: 4 mg - Exam General: Alert, Oriented Neck: Other (3 cm area of induration and erythema behind right ear, no area of fluctuance or drainage) Lungs: Clear to Auscultation, Normal Respiratory Effort Cardiovascular: Regular Rate, Regular Rhythm GI/Abdominal Exam: Soft, Non-Tender Extremities: Non-Tender, No Pedal Edema - Problem List Review Problem List Initiated/Reviewed/Updated: Yes - My Orders Last 24 Hours: My Active Orders 08/13/19 18:57 Acetaminophen [Tylenol] 650 mg PO Q4H PRN Ibuprofen [Motrin] 400 mg PO Q6H PRN Morphine 2 mg IVPUSH Q4H PRN Ondansetron [Zofran] 4 mg IVPUSH Q4H PRN 08/13/19 21:23 Oxygen Therapy [RC] PRN Up ad Natali [RC] ASDIRECTED VTE/DVT Education [RC] PER UNIT ROUTINE Vital Signs [RC] Q4H Resuscitation Status Routine 08/13/19 21:24 Antiembolic Devices [RC] PER UNIT ROUTINE Sequential Compression Device [OM.PC] Per Unit Routine 08/14/19 09:00 Heparin Sodium 5,000 units SUBCUT Q8H Vancomycin/Water For Inj (Peg) [Vancomycin 1.5 GM/300 ML Bag] 1.5 gm Premix Bag 1 bag IV Q12H 08/14/19 Breakfast Regular Diet [DIET] - Plan Plan:: 28 yo female admitted for right post auricular cellulitis. We will continue vancomycin.
[2019-08-14] MEDS: Heparin Sodium 5,000 Units/ML Vial SUBCUT SCH ×2 (09:34→16:47)
[2019-08-14] MEDS ORDERED: Bisacodyl 5 MG Tab PO PRN (13:52)
[2019-08-14] MEDS ORDERED: Polyethylene Glycol 3350 Powder 17 GM Packet PO PRN (13:52)
[2019-08-14] MEDS: Ibuprofen 400 MG Tab PO PRN (16:45)
[2019-08-14] MEDS: Nicotine 14 MG/24 Hr Patch TRDERM SCH (22:53)
[2019-08-15] MEDS: Heparin Sodium 5,000 Units/ML Vial SUBCUT SCH ×2 (00:05→09:38)
[2019-08-15] MEDS: Morphine 2 MG/ML Syringe IVPUSH PRN ×4 (02:55→14:28)
[2019-08-15 06:22] LABS: BLOOD UREA NITROGEN,BUN 9 mg/dL (7.0-18.0); CARBON DIOXIDE,CO2 26.8 mmol/L (21.0-32.0); CHLORIDE,CL 106 mmol/L (98-107); GLUCOSE RANDOM 98 mg/dL (74-106); POTASSIUM,K 4.6 mmol/L (3.5-5.1); SODIUM,NA 142 mmol/L (136-145)
--- NOTE | 2019-08-15 08:57 | PCM.PN ---
- General Info Date of Service: 08/15/19 Admission Dx/Problem (Free Text): Admission Diagnosis/Problem Admission Diagnosis/Problem Cellulitis Subjective Update: Continues to have pain behind R ear with increase pressure to this area. No overt drainage. No chest pain or SOB. Denies other concerns. Functional Status: Reports: Ambulating, Urinating. Denies: Pain Controlled - Review of Systems General: Reports: No Symptoms. Denies: Weakness, Fatigue, Malaise Pulmonary: Reports: No Symptoms. Denies: Shortness of Breath Cardiovascular: Reports: No Symptoms. Denies: Chest Pain Gastrointestinal: Reports: No Symptoms. Denies: Abdominal Pain, Nausea, Vomiting Genitourinary: Reports: No Symptoms. Denies: Dysuria, Frequency, Burning Musculoskeletal: Reports: No Symptoms Skin: Reports: No Symptoms Neurological: Reports: No Symptoms Psychiatric: Reports: No Symptoms - Patient Data Vitals - Most Recent: Last Vital Signs Temp 98.9 F 08/15/19 08:00 Pulse 117 H 08/15/19 08:00 Resp 22 H 08/15/19 08:00 BP 130/77 08/15/19 08:00 Pulse Ox 98 08/15/19 08:00 Weight - Most Recent: 104.2 kg I&O - Last 24 Hours: Intake & Output 08/14/19 08/15/19 08/15/19 22:59 06:59 14:59 Intake Total 500 800 Output Total 400 1400 Balance 100 -600 Lab Results Last 24 Hours: Laboratory Results - last 24 hr 08/14/19 08/14/19 08/15/19 Range/Units 11:16 17:37 05:13 WBC 11.11 H (4.0-11.0) K/uL RBC 4.73 (4.30-5.90) M/uL Hgb 14.3 (12.0-16.0) g/dL Hct 43.8 (36.0-46.0) % MCV 92.6 (80.0-98.0) fL MCH 30.2 (27.0-32.0) pg MCHC 32.6 (31.0-37.0) g/dL RDW Std Deviation 44.9 (28.0-62.0) fl RDW Coeff of Boby 13 (11.0-15.0) % Plt Count 278 (150-400) K/uL MPV 11.30 (7.40-12.00) fL Neut % (Auto) 70.9 (48.0-80.0) % Lymph % (Auto) 17.6 (16.0-40.0) % [place] % (Auto) 8.2 (0.0-15.0) % Eos % (Auto) 3.0 (0.0-7.0) % Baso % (Auto) 0.3 (0.0-1.5) % Neut # (Auto) 7.9 H (1.4-5.7) K/uL Lymph # (Auto) 2.0 (0.6-2.4) K/uL [place] # (Auto) 0.9 H (0.0-0.8) K/uL Eos # (Auto) 0.3 (0.0-0.7) K/uL Baso # (Auto) 0.0 (0.0-0.1) K/uL Nucleated RBC % 0.0 /100WBC Nucleated RBCs # 0 K/uL Sodium (136-145) mmol/L Potassium (3.5-5.1) mmol/L Chloride (98-107) mmol/L Carbon Dioxide (21.0-32.0) mmol/L BUN (7.0-18.0) mg/dL Creatinine (0.6-1.0) mg/dL Est Cr Clr Drug Dosing mL/min Estimated GFR (MDRD) ml/min Glucose (74-106) mg/dL POC Glucose 117 H 77 (60-110) mg/dL Calcium (8.5-10.1) mg/dL 08/15/19 Range/Units 05:13 WBC (4.0-11.0) K/uL RBC (4.30-5.90) M/uL Hgb (12.0-16.0) g/dL Hct (36.0-46.0) % MCV (80.0-98.0) fL MCH (27.0-32.0) pg MCHC (31.0-37.0) g/dL RDW Std Deviation (28.0-62.0) fl RDW Coeff of Boby (11.0-15.0) % Plt Count (150-400) K/uL MPV (7.40-12.00) fL Neut % (Auto) (48.0-80.0) % Lymph % (Auto) (16.0-40.0) % [place] % (Auto) (0.0-15.0) % Eos % (Auto) (0.0-7.0) % Baso % (Auto) (0.0-1.5) % Neut # (Auto) (1.4-5.7) K/uL Lymph # (Auto) (0.6-2.4) K/uL [place] # (Auto) (0.0-0.8) K/uL Eos # (Auto) (0.0-0.7) K/uL Baso # (Auto) (0.0-0.1) K/uL Nucleated RBC % /100WBC Nucleated RBCs # K/uL Sodium 142 (136-145) mmol/L Potassium 4.6 (3.5-5.1) mmol/L Chloride 106 (98-107) mmol/L Carbon Dioxide 26.8 (21.0-32.0) mmol/L BUN 9 (7.0-18.0) mg/dL Creatinine 0.9 (0.6-1.0) mg/dL Est Cr Clr Drug Dosing 75.61 mL/min Estimated GFR (MDRD) > 60.0 ml/min Glucose 98 (74-106) mg/dL POC Glucose (60-110) mg/dL Calcium 8.3 L (8.5-10.1) mg/dL Madhu Results Last 24 Hours: Microbiology 08/13/19 18:05 Aerobic Blood Culture - Preliminary Blood - Venous - Lab Draw NO GROWTH AFTER 1 DAY Anaerobic Blood Culture - Preliminary NO GROWTH AFTER 1 DAY 08/13/19 16:48 Aerobic Blood Culture - Preliminary Blood - Venous NO GROWTH AFTER 1 DAY Anaerobic Blood Culture - Preliminary NO GROWTH AFTER 1 DAY Med Orders - Current: Current Medications Acetaminophen (Tylenol) 650 mg PO Q4H PRN PRN Reason: Pain Bisacodyl (Dulcolax) 10 mg PO DAILY PRN PRN Reason: Constipation Heparin Sodium (Porcine) (Heparin Sodium) 5,000 units SUBCUT Q8H [facility] Last Admin: 08/15/19 00:05 Dose: 5,000 units Vancomycin HCl 1.5 gm/ Premix 300 mls @ 300 mls/hr IV Q12H [facility] Last Admin: 08/14/19 20:48 Dose: 300 mls/hr Ibuprofen (Motrin) 400 mg PO Q6H PRN PRN Reason: Pain Last Admin: 08/14/19 16:45 Dose: 400 mg Morphine Sulfate (Morphine) 2 mg IVPUSH Q4H PRN PRN Reason: Pain (severe 7-10) Last Admin: 08/15/19 02:55 Dose: 2 mg Nicotine (Habitrol) 14 mg TRDERM DAILY SHAYE Last Admin: 08/14/19 22:53 Dose: 14 mg Ondansetron HCl (Zofran) 4 mg IVPUSH Q4H PRN PRN Reason: Nausea/Vomiting Polyethylene Glycol (Miralax) 17 gm PO DAILY PRN PRN Reason: Constipation Sodium Chloride (Saline Flush) 10 ml FLUSH ASDIRECTED PRN PRN Reason: Keep Vein Open Last Admin: 08/13/19 17:50 Dose: 10 ml Sodium Chloride (Saline Flush) 2.5 ml FLUSH ASDIRECTED PRN PRN Reason: Keep Vein Open Last Admin: 08/13/19 17:50 Dose: 2.5 ml Vancomycin HCl (Pharmacy To Dose - Vancomycin) 1 dose .XX ASDIRECTED [facility] Discontinued Medications Clindamycin Phosphate 600 mg/ (Premix) 50 mls @ 100 mls/hr IV ONETIME ONE Stop: 08/13/19 17:10 Last Admin: 08/13/19 18:08 Dose: 100 mls/hr Vancomycin HCl 1.5 gm/ Sodium (Chloride) 500 mls @ 333.333 mls/hr IV ONETIME ONE Stop: 08/13/19 21:29 Last Admin: 08/13/19 20:49 Dose: 333.333 mls/hr Morphine Sulfate (Morphine) 4 mg IVPUSH ONETIME ONE Stop: 08/13/19 16:50 Last Admin: 08/13/19 17:50 Dose: 4 mg Ondansetron HCl (Zofran) 4 mg IVPUSH ONETIME ONE Stop: 08/13/19 16:50 Last Admin: 08/13/19 17:48 Dose: 4 mg - Exam General: Alert, Oriented, Cooperative, No Acute Distress Lungs: Clear to Auscultation, Normal Respiratory Effort Cardiovascular: Regular Rate, Regular Rhythm GI/Abdominal Exam: Normal Bowel Sounds, Soft, Non-Tender Extremities: Normal Inspection, Normal Range of Motion, Non-Tender, No Pedal Edema Skin: Other (cellulitis with abscess R post auricular. No drainage, little fluctuance but pustular region increasing in size and reports more and more pressure.) Neurological: No New Focal Deficit Psy/Mental Status: Alert, Normal Affect, Normal Mood - Problem List & Annotations (1) Cellulitis SNOMED Code(s): 692804575 Code(s): L03.90 - CELLULITIS, UNSPECIFIED Status: Acute Current Visit: Yes Qualifiers: Site of cellulitis of trunk: unspecified site (2) Abscess SNOMED Code(s): 014478703 Code(s): L02.91 - CUTANEOUS ABSCESS, UNSPECIFIED Status: Acute Current Visit: No (3) Obesity SNOMED Code(s): 369897263, 499224064 Code(s): E66.9 - OBESITY, UNSPECIFIED Status: Chronic Current Visit: No (4) Tobacco abuse SNOMED Code(s): 819971002 Code(s): Z72.0 - TOBACCO USE Status: Chronic Current Visit: No - Problem List Review Problem List Initiated/Reviewed/Updated: Yes - Plan Plan:: 28 yo female admitted for right post auricular cellulitis. 1. R posterior auricular cellulitis with abscess: Continue Vancomycin, more purulence noted below skin, little fluctuance, but has more and more pressure with pain. Consulted Dr Soriano for I/D. NPO this morning after she ate breakfast. We appreciate Dr Soriano's assistance. Morphine for pain PRN. VTE prophylaxis: Heparin, hold for now. Dispo: 2-3 days pending improvement.
[2019-08-15] MEDS: Nicotine 14 MG/24 Hr Patch TRDERM SCH (09:41)
--- NOTE | 2019-08-15 11:31 | PCM.CONS ---
<Brent Crandall - Last Filed: 08/15/19 11:40> H&P History of Present Illness - General Date of Service: 08/15/19 Admit Problem/Dx: Admission Diagnosis/Problem Admission Diagnosis/Problem Cellulitis Source of Information: Patient - History of Present Illness Initial Comments - Free Text/Narative: Patient is a 28 year old female that presented to the ED on 08/13/19 with a painful sore behind her right ear. She states that this started about 6 days ago with a small red, bug bit like area. She states that since then it has gotten bigger and more painful, which she brought her to the ED. She denies systemic symptoms like fever and chills. She has had one of these on her abdomen in the past, which required incision and drainage. Onset of Symptoms: Reports: Gradual Symptom Onset Date: 08/09/19 Duration of Symptoms: Reports: Constant, Getting Worse Location: Reports: Other (behind right ear) Severity: Moderate Improves with: Reports: Medication Worsens with: Reports: Movement Associated Symptoms: Reports: No Other Symptoms Behind Right Ear Pain Score (Numeric/FACES): 6 - Related Data Allergies/Adverse Reactions: Allergies Allergy/AdvReac Type Severity Reaction Status Date / Time No Known Allergies Allergy Verified 08/13/19 18:41 Home Medications: Home Meds Diclofenac Sodium [Voltaren] 75 mg PO BIDMEALS PRN #20 tab.cr 08/12/19 [Rx] Sulfamethoxazole/Trimethoprim [Bactrim Ds Tablet] 1 each PO BID #20 tablet 08/12 [Rx] Past Medical History - Past Health History Medical/Surgical History: Denies Medical/Surgical History Cardiovascular History: Reports: None Respiratory History: Reports: None Gastrointestinal History: Reports: GERD Musculoskeletal History: Reports: None Neurological History: Reports: None Psychiatric History: Reports: None Endocrine/Metabolic History: Reports: Obesity/BMI 30+ Dermatologic History: Reports: Other (See Below) Other Dermatologic History: MRSA abscess - Infectious Disease History Infectious Disease History: Reports: Chicken Pox, MRSA Social & Family History - Family History Family Medical History: Noncontributory - Tobacco Use Smoking Status *Q: Current Every Day Smoker Years of Tobacco use: 15 Packs/Tins Daily: 1 Used Tobacco, but Quit: No Second Hand Smoke Exposure: No - Caffeine Use Caffeine Use: Reports: Coffee, Soda Caffeine Use Comment: 2-3 cans of soda/day - Recreational Drug Use Recreational Drug Use: Yes Drug Use in Last 12 Months: Yes Recreational Drug Type: Reports: Marijuana/Hashish, Methamphetamine Recreational Drug Use Frequency: Daily Recreational Drug Last Use: Daily H&P Review of Systems - Review of Systems: Review Of Systems: See Below General: Reports: No Symptoms HEENT: Reports: Ear Pain Pulmonary: Reports: Cough Cardiovascular: Reports: No Symptoms Gastrointestinal: Reports: No Symptoms Genitourinary: Reports: No Symptoms Musculoskeletal: Reports: No Symptoms Skin: Reports: Wound Exam - Exam Exam: See Below - Vital Signs Vital Signs: Last Vital Signs Temp 98.9 F 08/15/19 08:00 Pulse 117 H 08/15/19 08:00 Resp 22 H 08/15/19 08:00 BP 130/77 08/15/19 08:00 Pulse Ox 98 08/15/19 08:00 Weight: 229 lb 11.547 oz - Exam General: Alert, Oriented, Cooperative HEENT: Other (behind the right ear there is a 3x2 cm eschar with serous fluid draining, redness extending from the eschar down neck some ) Lungs: Clear to Auscultation, Normal Respiratory Effort Cardiovascular: Regular Rate, Regular Rhythm GI/Abdominal Exam: Normal Bowel Sounds, Soft, No Distention, No Mass Extremities: Normal Inspection Skin: Warm, Dry, Intact - Patient Data Lab Results Last 24 hrs: Laboratory Results - last 24 hr 08/14/19 08/14/19 08/15/19 Range/Units 11:16 17:37 05:13 WBC 11.11 H (4.0-11.0) K/uL RBC 4.73 (4.30-5.90) M/uL Hgb 14.3 (12.0-16.0) g/dL Hct 43.8 (36.0-46.0) % MCV 92.6 (80.0-98.0) fL MCH 30.2 (27.0-32.0) pg MCHC 32.6 (31.0-37.0) g/dL RDW Std Deviation 44.9 (28.0-62.0) fl RDW Coeff of Boby 13 (11.0-15.0) % Plt Count 278 (150-400) K/uL MPV 11.30 (7.40-12.00) fL Neut % (Auto) 70.9 (48.0-80.0) % Lymph % (Auto) 17.6 (16.0-40.0) % [place] % (Auto) 8.2 (0.0-15.0) % Eos % (Auto) 3.0 (0.0-7.0) % Baso % (Auto) 0.3 (0.0-1.5) % Neut # (Auto) 7.9 H (1.4-5.7) K/uL Lymph # (Auto) 2.0 (0.6-2.4) K/uL [place] # (Auto) 0.9 H (0.0-0.8) K/uL Eos # (Auto) 0.3 (0.0-0.7) K/uL Baso # (Auto) 0.0 (0.0-0.1) K/uL Nucleated RBC % 0.0 /100WBC Nucleated RBCs # 0 K/uL Sodium (136-145) mmol/L Potassium (3.5-5.1) mmol/L Chloride (98-107) mmol/L Carbon Dioxide (21.0-32.0) mmol/L BUN (7.0-18.0) mg/dL Creatinine (0.6-1.0) mg/dL Est Cr Clr Drug Dosing mL/min Estimated GFR (MDRD) ml/min Glucose (74-106) mg/dL POC Glucose 117 H 77 (60-110) mg/dL Calcium (8.5-10.1) mg/dL 08/15/19 Range/Units 05:13 WBC (4.0-11.0) K/uL RBC (4.30-5.90) M/uL Hgb (12.0-16.0) g/dL Hct (36.0-46.0) % MCV (80.0-98.0) fL MCH (27.0-32.0) pg MCHC (31.0-37.0) g/dL RDW Std Deviation (28.0-62.0) fl RDW Coeff of Boby (11.0-15.0) % Plt Count (150-400) K/uL MPV (7.40-12.00) fL Neut % (Auto) (48.0-80.0) % Lymph % (Auto) (16.0-40.0) % [place] % (Auto) (0.0-15.0) % Eos % (Auto) (0.0-7.0) % Baso % (Auto) (0.0-1.5) % Neut # (Auto) (1.4-5.7) K/uL Lymph # (Auto) (0.6-2.4) K/uL [place] # (Auto) (0.0-0.8) K/uL Eos # (Auto) (0.0-0.7) K/uL Baso # (Auto) (0.0-0.1) K/uL Nucleated RBC % /100WBC Nucleated RBCs # K/uL Sodium 142 (136-145) mmol/L Potassium 4.6 (3.5-5.1) mmol/L Chloride 106 (98-107) mmol/L Carbon Dioxide 26.8 (21.0-32.0) mmol/L BUN 9 (7.0-18.0) mg/dL Creatinine 0.9 (0.6-1.0) mg/dL Est Cr Clr Drug Dosing 75.61 mL/min Estimated GFR (MDRD) > 60.0 ml/min Glucose 98 (74-106) mg/dL POC Glucose (60-110) mg/dL Calcium 8.3 L (8.5-10.1) mg/dL Result Diagrams: 08/15/19 05:13 08/15/19 05:13 Madhu Results Last 24 hrs: Microbiology 08/13/19 18:05 Aerobic Blood Culture - Preliminary Blood - Venous - Lab Draw NO GROWTH AFTER 1 DAY Anaerobic Blood Culture - Preliminary NO GROWTH AFTER 1 DAY 08/13/19 16:48 Aerobic Blood Culture - Preliminary Blood - Venous NO GROWTH AFTER 1 DAY Anaerobic Blood Culture - Preliminary NO GROWTH AFTER 1 DAY Imaging Impressions Last 24 hrs: Ct soft tissue: soft tissue cellulitis of the right mastoid, no definite abscess Consult PN Assessment/Plan Procedures: Procedures EMERGENCY DEPT VISIT (02/18/19) (1) Skin infection SNOMED Code(s): 307947762 Code(s): L08.9 - LOCAL INFECTION OF THE SKIN AND SUBCUTANEOUS TISSUE, UNSP Current Visit: Yes Problem List Initiated/Reviewed/Updated: Yes Plan: Plan for Incision and drainage in the OR due to pain associated with the area Patient ate last at 0830, will have to wait to proceed <Holden Soriano - Last Filed: 08/15/19 14:39> H&P History of Present Illness - General Admit Problem/Dx: Admission Diagnosis/Problem Admission Diagnosis/Problem Cellulitis Exam - Vital Signs Vital Signs: Last Vital Signs Temp 97.0 F 08/15/19 12:00 Pulse 93 08/15/19 12:00 Resp 16 08/15/19 12:00 BP 135/75 08/15/19 12:00 Pulse Ox 97 08/15/19 12:00 - Exam HEENT: Other (behind the right ear there is a 4x5 cm eschar with serous fluid draining, redness extending from the eschar down neck some ) - Patient Data Lab Results Last 24 hrs: Laboratory Results - last 24 hr 08/14/19 08/15/19 08/15/19 Range/Units 17:37 05:13 05:13 WBC 11.11 H (4.0-11.0) K/uL RBC 4.73 (4.30-5.90) M/uL Hgb 14.3 (12.0-16.0) g/dL Hct 43.8 (36.0-46.0) % MCV 92.6 (80.0-98.0) fL MCH 30.2 (27.0-32.0) pg MCHC 32.6 (31.0-37.0) g/dL RDW Std Deviation 44.9 (28.0-62.0) fl RDW Coeff of Boby 13 (11.0-15.0) % Plt Count 278 (150-400) K/uL MPV 11.30 (7.40-12.00) fL Neut % (Auto) 70.9 (48.0-80.0) % Lymph % (Auto) 17.6 (16.0-40.0) % [place] % (Auto) 8.2 (0.0-15.0) % Eos % (Auto) 3.0 (0.0-7.0) % Baso % (Auto) 0.3 (0.0-1.5) % Neut # (Auto) 7.9 H (1.4-5.7) K/uL Lymph # (Auto) 2.0 (0.6-2.4) K/uL [place] # (Auto) 0.9 H (0.0-0.8) K/uL Eos # (Auto) 0.3 (0.0-0.7) K/uL Baso # (Auto) 0.0 (0.0-0.1) K/uL Nucleated RBC % 0.0 /100WBC Nucleated RBCs # 0 K/uL Sodium 142 (136-145) mmol/L Potassium 4.6 (3.5-5.1) mmol/L Chloride 106 (98-107) mmol/L Carbon Dioxide 26.8 (21.0-32.0) mmol/L BUN 9 (7.0-18.0) mg/dL Creatinine 0.9 (0.6-1.0) mg/dL Est Cr Clr Drug Dosing 75.61 mL/min Estimated GFR (MDRD) > 60.0 ml/min Glucose 98 (74-106) mg/dL POC Glucose 77 (60-110) mg/dL Calcium 8.3 L (8.5-10.1) mg/dL Result Diagrams: 08/15/19 05:13 08/15/19 05:13 Madhu Results Last 24 hrs: Microbiology 08/13/19 18:05 Aerobic Blood Culture - Preliminary Blood - Venous - Lab Draw NO GROWTH AFTER 1 DAY Anaerobic Blood Culture - Preliminary NO GROWTH AFTER 1 DAY 08/13/19 16:48 Aerobic Blood Culture - Preliminary Blood - Venous NO GROWTH AFTER 1 DAY Anaerobic Blood Culture - Preliminary NO GROWTH AFTER 1 DAY Consult PN Assessment/Plan Procedures: Procedures EMERGENCY DEPT VISIT (02/18/19) (1) Cellulitis SNOMED Code(s): 175590820 Code(s): L03.90 - CELLULITIS, UNSPECIFIED Priority: High Current Visit: Yes Qualifiers: Site of cellulitis of trunk: unspecified site (2) Skin infection SNOMED Code(s): 494841828 Code(s): L08.9 - LOCAL INFECTION OF THE SKIN AND SUBCUTANEOUS TISSUE, UNSP Priority: High Current Visit: Yes (3) Abscess SNOMED Code(s): 133040506 Code(s): L02.91 - CUTANEOUS ABSCESS, UNSPECIFIED Priority: High Current Visit: No Problem List Initiated/Reviewed/Updated: Yes Plan: Incision and drainage of the right postauricular abscess. The operative procedure, along with the risks including but not limited to bleeding, infection , recurrence of the abscess, reaction to anesthesia have been reviewed with the patient who states she understands. Questions have been answered. She wishes to proceed.
--- NOTE | 2019-08-15 12:57 | PCM.PREANE ---
Preanesthetic Assessment - Anesthesia/Transfusion/Family Hx Anesthesia History: No Prior Anesthesia Family History of Anesthesia Reaction: No Transfusion History: No Prior Transfusion(s) Intubation History: Unknown - Review of Systems General: No Symptoms Pulmonary: No Symptoms Cardiovascular: No Symptoms Gastrointestinal: No Symptoms Neurological: No Symptoms Other: Reports: None - Physical Assessment NPO Status Date: 08/15/19 NPO Status Time: 08:30 Vital Signs: Last Vital Signs Temp 98.9 F 08/15/19 08:00 Pulse 117 H 08/15/19 08:00 Resp 22 H 08/15/19 08:00 BP 130/77 08/15/19 08:00 Pulse Ox 98 08/15/19 08:00 Height: 5 ft 3 in Weight: 104.2 kg ASA Class: 2 Mental Status: Alert & Oriented x3 Airway Class: Mallampati = 2 Dentition: Reports: Caries ROM/Head Extension: Full Lungs: Clear to Auscultation, Normal Respiratory Effort Cardiovascular: Regular Rate, Regular Rhythm - Lab Values: Laboratory Last Values WBC 11.11 K/uL (4.0-11.0) H 08/15/19 05:13 RBC 4.73 M/uL (4.30-5.90) 08/15/19 05:13 Hgb 14.3 g/dL (12.0-16.0) 08/15/19 05:13 Hct 43.8 % (36.0-46.0) 08/15/19 05:13 MCV 92.6 fL (80.0-98.0) 08/15/19 05:13 MCH 30.2 pg (27.0-32.0) 08/15/19 05:13 MCHC 32.6 g/dL (31.0-37.0) 08/15/19 05:13 RDW Std Deviation 44.9 fl (28.0-62.0) 08/15/19 05:13 RDW Coeff of Boby 13 % (11.0-15.0) 08/15/19 05:13 Plt Count 278 K/uL (150-400) 08/15/19 05:13 MPV 11.30 fL (7.40-12.00) 08/15/19 05:13 Neut % (Auto) 70.9 % (48.0-80.0) 08/15/19 05:13 Lymph % (Auto) 17.6 % (16.0-40.0) 08/15/19 05:13 [place] % (Auto) 8.2 % (0.0-15.0) 08/15/19 05:13 Eos % (Auto) 3.0 % (0.0-7.0) 08/15/19 05:13 Baso % (Auto) 0.3 % (0.0-1.5) 08/15/19 05:13 Neut # (Auto) 7.9 K/uL (1.4-5.7) H 08/15/19 05:13 Lymph # (Auto) 2.0 K/uL (0.6-2.4) 08/15/19 05:13 [place] # (Auto) 0.9 K/uL (0.0-0.8) H 08/15/19 05:13 Eos # (Auto) 0.3 K/uL (0.0-0.7) 08/15/19 05:13 Baso # (Auto) 0.0 K/uL (0.0-0.1) 08/15/19 05:13 Nucleated RBC % 0.0 /100WBC 08/15/19 05:13 Nucleated RBCs # 0 K/uL 08/15/19 05:13 Sodium 142 mmol/L (136-145) 08/15/19 05:13 Potassium 4.6 mmol/L (3.5-5.1) 08/15/19 05:13 Chloride 106 mmol/L (98-107) 08/15/19 05:13 Carbon Dioxide 26.8 mmol/L (21.0-32.0) 08/15/19 05:13 BUN 9 mg/dL (7.0-18.0) 08/15/19 05:13 Creatinine 0.9 mg/dL (0.6-1.0) 08/15/19 05:13 Est Cr Clr Drug Dosing 75.61 mL/min 08/15/19 05:13 Estimated GFR (MDRD) > 60.0 ml/min 08/15/19 05:13 Glucose 98 mg/dL (74-106) 08/15/19 05:13 POC Glucose 77 mg/dL (60-110) 08/14/19 17:37 Calcium 8.3 mg/dL (8.5-10.1) L 08/15/19 05:13 HCG, Qual NEGATIVE (NEG) 08/13/19 17:45 - Allergies Allergies/Adverse Reactions: Allergies Allergy/AdvReac Type Severity Reaction Status Date / Time No Known Allergies Allergy Verified 08/13/19 18:41 - Blood Blood Available: No - Anesthesia Plan Pre-Op Medication Ordered: None - Acknowledgements Anesthesia Type Planned: General Anesthesia Pt an Appropriate Candidate for the Planned Anesthesia: Yes Alternatives and Risks of Anesthesia Discussed w Pt/Guardian: Yes Pt/Guardian Understands and Agrees with Anesthesia Plan: Yes PreAnesthesia Questionnaire - Past Health History Medical/Surgical History: Denies Medical/Surgical History Cardiovascular History: Reports: None Respiratory History: Reports: None Gastrointestinal History: Reports: GERD Musculoskeletal History: Reports: None Neurological History: Reports: None Psychiatric History: Reports: None Endocrine/Metabolic History: Reports: Obesity/BMI 30+ Dermatologic History: Reports: Other (See Below) Other Dermatologic History: MRSA abscess - Infectious Disease History Infectious Disease History: Reports: Chicken Pox, MRSA - SUBSTANCE USE Smoking Status *Q: Current Every Day Smoker Tobacco Use Within Last Twelve Months: No Second Hand Smoke Exposure: No Recreational Drug Use History: Yes Recreational Drug Type: Reports: Marijuana/Hashish, Methamphetamine Recreational Drug Last Use: Daily - HOME MEDS Home Medications: Home Meds Diclofenac Sodium [Voltaren] 75 mg PO BIDMEALS PRN #20 tab.cr 08/12/19 [Rx] Sulfamethoxazole/Trimethoprim [Bactrim Ds Tablet] 1 each PO BID #20 tablet 08/12 [Rx] - CURRENT (IN HOUSE) MEDS Current Meds: Current Medications Acetaminophen (Tylenol) 650 mg PO Q4H PRN PRN Reason: Pain Bisacodyl (Dulcolax) 10 mg PO DAILY PRN PRN Reason: Constipation Vancomycin HCl 1.5 gm/ Premix 300 mls @ 300 mls/hr IV Q12H SHAYE Last Admin: 08/15/19 10:14 Dose: 300 mls/hr Ibuprofen (Motrin) 400 mg PO Q6H PRN PRN Reason: Pain Last Admin: 08/14/19 16:45 Dose: 400 mg Morphine Sulfate (Morphine) 2 mg IVPUSH Q2H PRN PRN Reason: Pain (severe 7-10) Last Admin: 08/15/19 11:22 Dose: 2 mg Nicotine (Habitrol) 14 mg TRDERM DAILY [facility] Last Admin: 08/15/19 09:41 Dose: Not Given Ondansetron HCl (Zofran) 4 mg IVPUSH Q4H PRN PRN Reason: Nausea/Vomiting Polyethylene Glycol (Miralax) 17 gm PO DAILY PRN PRN Reason: Constipation Sodium Chloride (Saline Flush) 10 ml FLUSH ASDIRECTED PRN PRN Reason: Keep Vein Open Last Admin: 08/13/19 17:50 Dose: 10 ml Sodium Chloride (Saline Flush) 2.5 ml FLUSH ASDIRECTED PRN PRN Reason: Keep Vein Open Last Admin: 08/13/19 17:50 Dose: 2.5 ml Vancomycin HCl (Pharmacy To Dose - Vancomycin) 1 dose .XX ASDIRECTED [facility] Discontinued Medications Heparin Sodium (Porcine) (Heparin Sodium) 5,000 units SUBCUT Q8H [facility] Last Admin: 08/15/19 09:38 Dose: 5,000 units Clindamycin Phosphate 600 mg/ (Premix) 50 mls @ 100 mls/hr IV ONETIME ONE Stop: 08/13/19 17:10 Last Admin: 08/13/19 18:08 Dose: 100 mls/hr Vancomycin HCl 1.5 gm/ Sodium (Chloride) 500 mls @ 333.333 mls/hr IV ONETIME ONE Stop: 08/13/19 21:29 Last Admin: 08/13/19 20:49 Dose: 333.333 mls/hr Morphine Sulfate (Morphine) 4 mg IVPUSH ONETIME ONE Stop: 08/13/19 16:50 Last Admin: 08/13/19 17:50 Dose: 4 mg Morphine Sulfate (Morphine) 2 mg IVPUSH Q4H PRN PRN Reason: Pain (severe 7-10) Last Admin: 08/15/19 09:29 Dose: 2 mg Ondansetron HCl (Zofran) 4 mg IVPUSH ONETIME ONE Stop: 08/13/19 16:50 Last Admin: 08/13/19 17:48 Dose: 4 mg
[2019-08-15] MEDS ORDERED: Propofol 200 MG/20 ML SDV ONE (13:48)
[2019-08-15] MEDS ORDERED: fentaNYL 100 MCG/2 ML SDV ONE (13:48)
[2019-08-15] MEDS ORDERED: Midazolam 1 MG/ML 2 ML SDV ONE (13:48)
[2019-08-15] MEDS ORDERED: Glycopyrrolate 0.2 MG/ML SDV ONE (13:50)
[2019-08-15] MEDS ORDERED: Lidocaine 2% 5 ML SDV ONE (13:50)
[2019-08-15] MEDS ORDERED: ceFAZolin 1 GM Vial ONE (14:16)
[2019-08-15] MEDS ORDERED: Bupivacaine 0.5% 10 ML SDV ONE (14:18)
[2019-08-15] MEDS ORDERED: Esmolol 100 MG/10 ML SDV ONE (15:15)
[2019-08-15] MEDS ORDERED: Phenylephrine/Normal Saline 100 MCG/ML 10 ML Syringe ONE (15:16)
--- NOTE | 2019-08-15 15:50 | PCM.OPNOTE ---
- General Post-Op/Procedure Note Date of Surgery/Procedure: 08/15/19 Operative Procedure(s): Incision and drainage, right postauricular abscess Pre Op Diagnosis: Right postauricular abscess Post-Op Diagnosis: Same Anesthesia Technique: General ET Tube (ASA IIIE) Primary Surgeon: Holden Soriano Cna Ltc: Brent Crandall Fluid Replacement, Intraop: 500 EBL in mLs: 10 Condition: Stable Free Text/Narrative:: Intake & Output 08/15/19 08/15/19 08/15/19 03:59 11:59 19:59 Intake Total 1100 Output Total 1400 Balance -300 DICTATION [id number]
[2019-08-15] MEDS: fentaNYL 100 MCG/2 ML SDV IVPUSH PRN ×2 (15:58→16:08)
[2019-08-15] MEDS ORDERED: Lactated Ringers 1,000 ML IV SCH (16:00)
--- NOTE | 2019-08-15 16:34 | PCM.POSTAN ---
POST ANESTHESIA ASSESSMENT - MENTAL STATUS Mental Status: Alert - VITAL SIGNS Vital Signs: Last Vital Signs Temp 36.8 C 08/15/19 15:42 Pulse 115 H 08/15/19 16:27 Resp 19 08/15/19 16:27 BP 128/83 08/15/19 16:27 Pulse Ox 98 08/15/19 16:27 - RESPIRATORY Respiratory Status: Respiratory Rate WNL - CARDIOVASCULAR CV Status: Pulse Rate WNL - GASTROINTESTINAL GI Status: No Symptoms - POST OP HYDRATION Hydration Status: Adequate & Stable
[2019-08-16] MEDS: Vancomycin 2 GM in Sodium Chloride 0.9% 500 ML IV SCH ×2 (00:21→12:00)
[2019-08-16 06:51] LABS: BLOOD UREA NITROGEN,BUN 8 mg/dL (7.0-18.0); CARBON DIOXIDE,CO2 25.6 mmol/L (21.0-32.0); CHLORIDE,CL 107 mmol/L (98-107); GLUCOSE RANDOM 91 mg/dL (74-106); POTASSIUM,K 4.1 mmol/L (3.5-5.1); SODIUM,NA 141 mmol/L (136-145)
[2019-08-16] MEDS: Acetaminophen/HYDROcodone 325-5 MG Tab PO PRN ×2 (08:22→20:11)
--- NOTE | 2019-08-16 08:38 | PCM.SN ---
<Brent Crandall - Last Filed: 08/16/19 08:36> - Free Text/Narrative Note: Patient is a 28 yr old female POD#1 s/p incision and drainage of a post- auricular abscess. Doing well. Pain controlled. No fevers or chills Vital signs stable Angel in place, minimal drainage on dressing, erythema improving -dressing changes as needed -Primary team to follow up cultures and adjust antibiotics as appropriate -Will plan for angel removal on 08/18 -OK to shower <Holden Soriano - Last Filed: 08/16/19 08:40> - Free Text/Narrative Note: Patient seen and examined with Dr. Crandall. I agree with her assessment and plan.
--- NOTE | 2019-08-16 08:40 | PCM.PN ---
- General Info Date of Service: 08/16/19 Admission Dx/Problem (Free Text): Admission Diagnosis/Problem Admission Diagnosis/Problem Cellulitis Subjective Update: Feeling ok this morning, reports mild pain to her ear. No chest pain or SOB. No abdominal pain. Reports being tired. Functional Status: Reports: Pain Controlled, Tolerating Diet, Ambulating, Urinating - Review of Systems General: Reports: No Symptoms. Denies: Weakness, Fatigue Pulmonary: Reports: No Symptoms. Denies: Shortness of Breath Cardiovascular: Reports: No Symptoms. Denies: Chest Pain Gastrointestinal: Reports: No Symptoms. Denies: Abdominal Pain, Nausea, Vomiting Skin: Reports: Other (wound post auricular R) Neurological: Reports: No Symptoms Psychiatric: Reports: No Symptoms - Patient Data Vitals - Most Recent: Last Vital Signs Temp 98.3 F 08/16/19 04:33 Pulse 89 08/16/19 04:33 Resp 21 H 08/16/19 04:33 BP 121/64 08/16/19 04:33 Pulse Ox 94 L 08/16/19 04:33 Weight - Most Recent: 104.2 kg I&O - Last 24 Hours: Intake & Output 08/15/19 08/16/19 08/16/19 22:59 06:59 14:59 Intake Total 1650 650 Output Total 2250 1600 Balance -600 -950 Lab Results Last 24 Hours: Laboratory Results - last 24 hr 08/15/19 08/16/19 08/16/19 Range/Units 22:18 06:25 06:25 WBC 8.87 (4.0-11.0) K/uL RBC 4.83 (4.30-5.90) M/uL Hgb 14.5 (12.0-16.0) g/dL Hct 44.0 (36.0-46.0) % MCV 91.1 (80.0-98.0) fL MCH 30.0 (27.0-32.0) pg MCHC 33.0 (31.0-37.0) g/dL RDW Std Deviation 43.9 (28.0-62.0) fl RDW Coeff of Boby 13 (11.0-15.0) % Plt Count 272 (150-400) K/uL MPV 10.60 (7.40-12.00) fL Neut % (Auto) 55.6 (48.0-80.0) % Lymph % (Auto) 32.4 (16.0-40.0) % [place] % (Auto) 9.5 (0.0-15.0) % Eos % (Auto) 2.0 (0.0-7.0) % Baso % (Auto) 0.5 (0.0-1.5) % Neut # (Auto) 4.9 (1.4-5.7) K/uL Lymph # (Auto) 2.9 H (0.6-2.4) K/uL [place] # (Auto) 0.8 (0.0-0.8) K/uL Eos # (Auto) 0.2 (0.0-0.7) K/uL Baso # (Auto) 0.0 (0.0-0.1) K/uL Nucleated RBC % 0.0 /100WBC Nucleated RBCs # 0 K/uL Sodium 141 (136-145) mmol/L Potassium 4.1 (3.5-5.1) mmol/L Chloride 107 (98-107) mmol/L Carbon Dioxide 25.6 (21.0-32.0) mmol/L BUN 8 (7.0-18.0) mg/dL Creatinine 0.8 (0.6-1.0) mg/dL Est Cr Clr Drug Dosing 85.06 mL/min Estimated GFR (MDRD) > 60.0 ml/min Glucose 91 (74-106) mg/dL Calcium 8.5 (8.5-10.1) mg/dL Vancomycin Trough 7.0 (5.0-10.0) ug/mL Madhu Results Last 24 Hours: Microbiology 08/15/19 15:23 Gram Stain - Preliminary Ear, Right 08/13/19 18:05 Aerobic Blood Culture - Preliminary Blood - Venous - Lab Draw NO GROWTH AFTER 2 DAYS Anaerobic Blood Culture - Preliminary NO GROWTH AFTER 2 DAYS 08/13/19 16:48 Aerobic Blood Culture - Preliminary Blood - Venous NO GROWTH AFTER 2 DAYS Anaerobic Blood Culture - Preliminary NO GROWTH AFTER 2 DAYS Med Orders - Current: Current Medications Acetaminophen (Tylenol) 650 mg PO Q4H PRN PRN Reason: Pain Hydrocodone Bitart/Acetaminophen ([place] 325-5 Mg) 1 - 2 tab PO Q4H PRN PRN Reason: Pain Last Admin: 08/16/19 08:22 Dose: 1 tab Bisacodyl (Dulcolax) 10 mg PO DAILY PRN PRN Reason: Constipation Lactated Ringer's (Ringers, Lactated) 1,000 mls @ 100 mls/hr IV ASDIRECTED [facility] Vancomycin HCl 2 gm/ Sodium (Chloride) 500 mls @ 333.333 mls/hr IV Q12H [facility] Last Admin: 08/16/19 00:21 Dose: 333.333 mls/hr Ibuprofen (Motrin) 400 mg PO Q6H PRN PRN Reason: Pain Last Admin: 08/14/19 16:45 Dose: 400 mg Morphine Sulfate (Morphine) 2 mg IVPUSH Q2H PRN PRN Reason: Pain (severe 7-10) Last Admin: 08/15/19 14:28 Dose: 2 mg Nicotine (Habitrol) 14 mg TRDERM DAILY [facility] Last Admin: 08/15/19 09:41 Dose: Not Given Ondansetron HCl (Zofran) 4 mg IVPUSH Q4H PRN PRN Reason: Nausea/Vomiting Polyethylene Glycol (Miralax) 17 gm PO DAILY PRN PRN Reason: Constipation Sodium Chloride (Saline Flush) 10 ml FLUSH ASDIRECTED PRN PRN Reason: Keep Vein Open Last Admin: 08/13/19 17:50 Dose: 10 ml Sodium Chloride (Saline Flush) 2.5 ml FLUSH ASDIRECTED PRN PRN Reason: Keep Vein Open Last Admin: 08/13/19 17:50 Dose: 2.5 ml Vancomycin HCl (Pharmacy To Dose - Vancomycin) 1 dose .XX ASDIRECTED [facility] Discontinued Medications Bupivacaine HCl (Sensorcaine-Mpf 0.5%) Confirm Administered Dose 10 ml .ROUTE .STK-MED ONE Stop: 08/15/19 14:19 Cefazolin Sodium (Ancef) Confirm Administered Dose 1 gm .ROUTE .STK-MED ONE Stop: 08/15/19 14:17 Esmolol HCl (Esmolol) Confirm Administered Dose 100 mg .ROUTE .STK-MED ONE Stop: 08/15/19 15:16 Fentanyl (Sublimaze) Confirm Administered Dose 100 mcg .ROUTE .STK-MED ONE Stop: 08/15/19 13:49 Fentanyl (Sublimaze) 50 mcg IVPUSH Q5M PRN PRN Reason: Pain Last Admin: 08/15/19 16:08 Dose: 50 mcg Glycopyrrolate (Robinul) Confirm Administered Dose 0.2 mg .ROUTE .STK-MED ONE Stop: 08/15/19 13:51 Heparin Sodium (Porcine) (Heparin Sodium) 5,000 units SUBCUT Q8H [facility] Last Admin: 08/15/19 09:38 Dose: 5,000 units Clindamycin Phosphate 600 mg/ (Premix) 50 mls @ 100 mls/hr IV ONETIME ONE Stop: 08/13/19 17:10 Last Admin: 08/13/19 18:08 Dose: 100 mls/hr Vancomycin HCl 1.5 gm/ Sodium (Chloride) 500 mls @ 333.333 mls/hr IV ONETIME ONE Stop: 08/13/19 21:29 Last Admin: 08/13/19 20:49 Dose: 333.333 mls/hr Vancomycin HCl 1.5 gm/ Premix 300 mls @ 300 mls/hr IV Q12H [facility] Last Admin: 08/16/19 00:20 Dose: Not Given Lidocaine (Xylocaine-Mpf 2%) Confirm Administered Dose 5 ml .ROUTE .STK-MED ONE Stop: 08/15/19 13:51 Midazolam HCl (Versed 1 Mg/Ml) Confirm Administered Dose 2 mg .ROUTE .STK-MED ONE Stop: 08/15/19 13:49 Morphine Sulfate (Morphine) 4 mg IVPUSH ONETIME ONE Stop: 08/13/19 16:50 Last Admin: 08/13/19 17:50 Dose: 4 mg Morphine Sulfate (Morphine) 2 mg IVPUSH Q4H PRN PRN Reason: Pain (severe 7-10) Last Admin: 08/15/19 09:29 Dose: 2 mg Ondansetron HCl (Zofran) 4 mg IVPUSH ONETIME ONE Stop: 08/13/19 16:50 Last Admin: 08/13/19 17:48 Dose: 4 mg Phenylephrine HCl (Phenylephrine In Ns 100 Mcg/Ml) Confirm Administered Dose 1 mg .ROUTE .STK-MED ONE Stop: 08/15/19 15:17 Propofol (Diprivan 20 Ml) Confirm Administered Dose 200 mg .ROUTE .STK-MED ONE Stop: 08/15/19 13:49 Succinylcholine Chloride (Succinylcholine Chloride) Confirm Administered Dose 200 mg .ROUTE .STK-MED ONE Stop: 08/15/19 13:51 - Exam General: Alert, Oriented, Cooperative, No Acute Distress Lungs: Clear to Auscultation, Normal Respiratory Effort Cardiovascular: Regular Rate, Regular Rhythm GI/Abdominal Exam: Normal Bowel Sounds, Soft, Non-Tender Extremities: Normal Inspection, Normal Range of Motion, Non-Tender, No Pedal Edema Wound/Incisions: Drainage (rahat drain in place to post auricular abscess. Draining serous drainage. Continues to have some pain will monitor.), Erythema Improving Psy/Mental Status: Alert, Normal Affect, Normal Mood - Problem List & Annotations (1) Cellulitis SNOMED Code(s): 221464129 Code(s): L03.90 - CELLULITIS, UNSPECIFIED Status: Acute Priority: High Current Visit: Yes Qualifiers: Site of cellulitis of trunk: unspecified site (2) Abscess SNOMED Code(s): 986847370 Code(s): L02.91 - CUTANEOUS ABSCESS, UNSPECIFIED Status: Acute Priority: High Current Visit: No (3) Obesity SNOMED Code(s): 202787642, 887629807 Code(s): E66.9 - OBESITY, UNSPECIFIED Status: Chronic Current Visit: No (4) Tobacco abuse SNOMED Code(s): 465072110 Code(s): Z72.0 - TOBACCO USE Status: Chronic Current Visit: No - Problem List Review Problem List Initiated/Reviewed/Updated: Yes - My Orders Last 24 Hours: My Active Orders 08/15/19 10:02 Consult to Physician [CONS] Routine 08/15/19 10:03 Notify Provider Consults [RC] ASDIRECTED 08/15/19 11:04 Morphine 2 mg IVPUSH Q2H PRN 08/15/19 16:26 Acetaminophen/HYDROcodone [[place] 325-5 MG] 1 - 2 tab PO Q4H PRN - Plan Plan:: 28 yo female admitted for right post auricular cellulitis. 1. R posterior auricular cellulitis with abscess: Continue Vancomycin, Consulted Dr Soriano was in OR yesterday for I/D. Rahat drain in place. Spoke with Dr Soriano this morning, recommends staying until cultures return, also plan to remove rahat drain on . We appreciate Dr Soriano's assistance. Morphine for pain PRN. Afebrile. Cultures reveal coag positive staph , futher MADHU pending. VTE prophylaxis: SCDs and ambulation. Dispo: 2-3 days pending improvement.
--- NOTE | 2019-08-16 09:05 | PCM48HPAN ---
Post Anesthesia Note - EVALUATION WITHIN 48HRS OF ANESTHETIC Vital Signs in Normal Range: Yes Patient Participated in Evaluation: Yes Respiratory Function Stable: Yes Airway Patent: Yes Cardiovascular Function Stable: Yes Hydration Status Stable: Yes Pain Control Satisfactory: Yes Nausea and Vomiting Control Satisfactory: Yes Mental Status Recovered: Yes Vital Signs: Last Vital Signs Temp 36.8 C 08/16/19 04:33 Pulse 89 08/16/19 04:33 Resp 21 H 08/16/19 04:33 BP 121/64 08/16/19 04:33 Pulse Ox 94 L 08/16/19 04:33
[2019-08-16] MEDS: Nicotine 14 MG/24 Hr Patch TRDERM SCH (09:42)
--- NOTE | 2019-08-16 15:20 | OR ---
SURGEON: Holden Soriano M.D. DATE OF PROCEDURE: 08/15/2019 OPERATION PERFORMED: Incision and drainage of right postauricular abscess. PRIMARY SURGEON: Holden Soriano MD. GUIDE EXCURSION: assistant dean of students: Dr. Crandall, PGY2. ANESTHESIA: General endotracheal. ASA CLASSIFICATION: III. PREOPERATIVE DIAGNOSIS: Right postauricular abscess. POSTOPERATIVE DIAGNOSIS: Right postauricular abscess. ESTIMATED BLOOD LOSS: 10 mL. INTRAOPERATIVE FLUID REPLACEMENT: 500 mL of crystalloid. DESCRIPTION OF PROCEDURE: The patient was taken to the operating room and placed on the operating table in the supine position. Following satisfactory attainment of general endotracheal anesthesia, she was positioned on her left side on the beanbag. Care was taken to pad all bony prominences and place appropriate axillary rolls. The beanbag was deflated, and the patient secured well to the table. The area behind the right ear was prepped with Betadine solution, and sterile drapes were applied. A skin incision was made in a vertical fashion directly over the abscess through the center of the abscess and deepened into the subcutaneous tissue. There was approximately 5 mL of very thick purulent material. This was all aspirated and aerobic and anaerobic cultures were obtained. All loculations were broken up. The wound was then irrigated with 1% Ancef solution. A 3/4-inch [place] drain was placed into the depth of the wound and secured to the skin with interrupted 2-0 nylon. The wound was then dressed with 4 x 4's and burn net dressing to secure this. The patient tolerated the procedure well. Prior to emergence from anesthesia, she was returned to the supine position and transferred to the cart. Following emergence from anesthesia and extubation, she was taken to recovery room in stable condition. ALICIA / LAURO /[id number]
[2019-08-17 06:32] LABS: BLOOD UREA NITROGEN,BUN 10 mg/dL (7.0-18.0); CARBON DIOXIDE,CO2 25.6 mmol/L (21.0-32.0); CHLORIDE,CL 106 mmol/L (98-107); GLUCOSE RANDOM 78 mg/dL (74-106); POTASSIUM,K 4.1 mmol/L (3.5-5.1); SODIUM,NA 142 mmol/L (136-145)
[2019-08-17] MEDS: Nicotine 14 MG/24 Hr Patch TRDERM SCH (08:00)
--- NOTE | 2019-08-17 08:20 | PCM.SN ---
<Brent Crandall - Last Filed: 08/17/19 08:17> - Free Text/Narrative Note: Patient is POD#2 s/p incision and drainage of right post-auricular abscess. Doing well. Pain controlled. Minimal drainage. Induration persists, minimal drainage. -Shower today -Follow up sensitivities, if back today can remove drain and send home <Holden Soriano - Last Filed: 08/17/19 08:25> - Free Text/Narrative Note: Patient seen with Dr. Crandall. Plan as outlined above. If patient discharged today, would like to see her back in the office in 10 days. Patient should shower daily and use a fan or a blow dryer on a cool setting to dry the wound.
--- NOTE | 2019-08-17 09:30 | PCM.SN ---
- Free Text/Narrative Note: Doing well. Minimal analgesia use. Will discontinue ETCo2 monitoring.
[2019-08-17] MEDS: Acetaminophen/HYDROcodone 325-5 MG Tab PO PRN (10:35)
--- NOTE | 2019-08-17 10:52 | PCM.PN ---
- General Info Date of Service: 08/17/19 Admission Dx/Problem (Free Text): Admission Diagnosis/Problem Admission Diagnosis/Problem Cellulitis Subjective Update: Reports pain is ok. No chest pain or abdominal pain. Reports mild pain behind R ear, but improved. Functional Status: Reports: Pain Controlled, Tolerating Diet, Ambulating, Urinating - Review of Systems HEENT: Reports: No Symptoms. Denies: Glasses, Sore Throat, Visual Changes Pulmonary: Reports: No Symptoms. Denies: Shortness of Breath Cardiovascular: Reports: No Symptoms. Denies: Chest Pain Gastrointestinal: Reports: No Symptoms. Denies: Abdominal Pain, Nausea Musculoskeletal: Reports: No Symptoms Skin: Reports: Other (wound behind R ear, improved) - Patient Data Vitals - Most Recent: Last Vital Signs Temp 96.3 F 08/17/19 07:59 Pulse 76 08/17/19 07:59 Resp 16 08/17/19 07:59 BP 127/68 08/17/19 07:59 Pulse Ox 94 L 08/17/19 07:59 Weight - Most Recent: 104.2 kg I&O - Last 24 Hours: Intake & Output 08/16/19 08/17/19 08/17/19 22:59 06:59 14:59 Intake Total 600 400 Output Total 1300 500 Balance -700 -100 Lab Results Last 24 Hours: Laboratory Results - last 24 hr 08/17/19 08/17/19 Range/Units 05:58 05:58 WBC 9.54 (4.0-11.0) K/uL RBC 4.63 (4.30-5.90) M/uL Hgb 13.8 (12.0-16.0) g/dL Hct 42.3 (36.0-46.0) % MCV 91.4 (80.0-98.0) fL MCH 29.8 (27.0-32.0) pg MCHC 32.6 (31.0-37.0) g/dL RDW Std Deviation 43.7 (28.0-62.0) fl RDW Coeff of Boby 13 (11.0-15.0) % Plt Count 286 (150-400) K/uL MPV 10.20 (7.40-12.00) fL Neut % (Auto) 53.2 (48.0-80.0) % Lymph % (Auto) 33.8 (16.0-40.0) % [place] % (Auto) 9.0 (0.0-15.0) % Eos % (Auto) 3.7 (0.0-7.0) % Baso % (Auto) 0.3 (0.0-1.5) % Neut # (Auto) 5.1 (1.4-5.7) K/uL Lymph # (Auto) 3.2 H (0.6-2.4) K/uL [place] # (Auto) 0.9 H (0.0-0.8) K/uL Eos # (Auto) 0.4 (0.0-0.7) K/uL Baso # (Auto) 0.0 (0.0-0.1) K/uL Nucleated RBC % 0.0 /100WBC Nucleated RBCs # 0 K/uL Sodium 142 (136-145) mmol/L Potassium 4.1 (3.5-5.1) mmol/L Chloride 106 (98-107) mmol/L Carbon Dioxide 25.6 (21.0-32.0) mmol/L BUN 10 (7.0-18.0) mg/dL Creatinine 0.7 (0.6-1.0) mg/dL Est Cr Clr Drug Dosing 97.21 mL/min Estimated GFR (MDRD) > 60.0 ml/min Glucose 78 (74-106) mg/dL Calcium 8.5 (8.5-10.1) mg/dL Madhu Results Last 24 Hours: Microbiology 08/13/19 18:05 Aerobic Blood Culture - Preliminary Blood - Venous - Lab Draw NO GROWTH AFTER 3 DAYS Anaerobic Blood Culture - Preliminary NO GROWTH AFTER 3 DAYS 08/13/19 16:48 Aerobic Blood Culture - Preliminary Blood - Venous NO GROWTH AFTER 3 DAYS Anaerobic Blood Culture - Preliminary NO GROWTH AFTER 3 DAYS 08/15/19 15:23 Gram Stain - Preliminary Ear, Right Wound Culture - Preliminary Med Orders - Current: Current Medications Acetaminophen (Tylenol) 650 mg PO Q4H PRN PRN Reason: Pain Hydrocodone Bitart/Acetaminophen ([place] 325-5 Mg) 1 - 2 tab PO Q4H PRN PRN Reason: Pain Last Admin: 08/17/19 10:35 Dose: 1 tab Bisacodyl (Dulcolax) 10 mg PO DAILY PRN PRN Reason: Constipation Vancomycin HCl 1.5 gm/ Premix 300 mls @ 200 mls/hr IV Q8H [facility] Last Admin: 08/17/19 05:01 Dose: 200 mls/hr Ibuprofen (Motrin) 400 mg PO Q6H PRN PRN Reason: Pain Last Admin: 08/14/19 16:45 Dose: 400 mg Nicotine (Habitrol) 14 mg TRDERM DAILY [facility] Last Admin: 08/17/19 08:00 Dose: Not Given Ondansetron HCl (Zofran) 4 mg IVPUSH Q4H PRN PRN Reason: Nausea/Vomiting Polyethylene Glycol (Miralax) 17 gm PO DAILY PRN PRN Reason: Constipation Sodium Chloride (Saline Flush) 10 ml FLUSH ASDIRECTED PRN PRN Reason: Keep Vein Open Last Admin: 08/13/19 17:50 Dose: 10 ml Sodium Chloride (Saline Flush) 2.5 ml FLUSH ASDIRECTED PRN PRN Reason: Keep Vein Open Last Admin: 08/13/19 17:50 Dose: 2.5 ml Vancomycin HCl (Pharmacy To Dose - Vancomycin) 1 dose .XX ASDIRECTED [facility] Discontinued Medications Bupivacaine HCl (Sensorcaine-Mpf 0.5%) Confirm Administered Dose 10 ml .ROUTE .STK-MED ONE Stop: 08/15/19 14:19 Cefazolin Sodium (Ancef) Confirm Administered Dose 1 gm .ROUTE .STK-MED ONE Stop: 08/15/19 14:17 Esmolol HCl (Esmolol) Confirm Administered Dose 100 mg .ROUTE .STK-MED ONE Stop: 08/15/19 15:16 Fentanyl (Sublimaze) Confirm Administered Dose 100 mcg .ROUTE .STK-MED ONE Stop: 08/15/19 13:49 Fentanyl (Sublimaze) 50 mcg IVPUSH Q5M PRN PRN Reason: Pain Last Admin: 08/15/19 16:08 Dose: 50 mcg Glycopyrrolate (Robinul) Confirm Administered Dose 0.2 mg .ROUTE .STK-MED ONE Stop: 08/15/19 13:51 Heparin Sodium (Porcine) (Heparin Sodium) 5,000 units SUBCUT Q8H [facility] Last Admin: 08/15/19 09:38 Dose: 5,000 units Clindamycin Phosphate 600 mg/ (Premix) 50 mls @ 100 mls/hr IV ONETIME ONE Stop: 08/13/19 17:10 Last Admin: 08/13/19 18:08 Dose: 100 mls/hr Vancomycin HCl 1.5 gm/ Sodium (Chloride) 500 mls @ 333.333 mls/hr IV ONETIME ONE Stop: 08/13/19 21:29 Last Admin: 08/13/19 20:49 Dose: 333.333 mls/hr Vancomycin HCl 1.5 gm/ Premix 300 mls @ 300 mls/hr IV Q12H [facility] Last Admin: 08/16/19 00:20 Dose: Not Given Lactated Ringer's (Ringers, Lactated) 1,000 mls @ 100 mls/hr IV ASDIRECTED [facility] Vancomycin HCl 2 gm/ Sodium (Chloride) 500 mls @ 333.333 mls/hr IV Q12H [facility] Stop: 08/16/19 14:00 Last Admin: 08/16/19 12:00 Dose: 333.333 mls/hr Lidocaine (Xylocaine-Mpf 2%) Confirm Administered Dose 5 ml .ROUTE .STK-MED ONE Stop: 08/15/19 13:51 Midazolam HCl (Versed 1 Mg/Ml) Confirm Administered Dose 2 mg .ROUTE .STK-MED ONE Stop: 08/15/19 13:49 Morphine Sulfate (Morphine) 4 mg IVPUSH ONETIME ONE Stop: 08/13/19 16:50 Last Admin: 08/13/19 17:50 Dose: 4 mg Morphine Sulfate (Morphine) 2 mg IVPUSH Q4H PRN PRN Reason: Pain (severe 7-10) Last Admin: 08/15/19 09:29 Dose: 2 mg Morphine Sulfate (Morphine) 2 mg IVPUSH Q2H PRN PRN Reason: Pain (severe 7-10) Last Admin: 08/15/19 14:28 Dose: 2 mg Ondansetron HCl (Zofran) 4 mg IVPUSH ONETIME ONE Stop: 08/13/19 16:50 Last Admin: 08/13/19 17:48 Dose: 4 mg Phenylephrine HCl (Phenylephrine In Ns 100 Mcg/Ml) Confirm Administered Dose 1 mg .ROUTE .STK-MED ONE Stop: 08/15/19 15:17 Propofol (Diprivan 20 Ml) Confirm Administered Dose 200 mg .ROUTE .STK-MED ONE Stop: 08/15/19 13:49 Succinylcholine Chloride (Succinylcholine Chloride) Confirm Administered Dose 200 mg .ROUTE .STK-MED ONE Stop: 08/15/19 13:51 - Exam General: Alert, Oriented, Cooperative, No Acute Distress Neck: Supple Lungs: Clear to Auscultation, Normal Respiratory Effort Cardiovascular: Regular Rate, Regular Rhythm GI/Abdominal Exam: Normal Bowel Sounds, Soft, Non-Tender Extremities: Normal Inspection, Normal Range of Motion, Non-Tender, No Pedal Edema Wound/Incisions: Drainage (serous drainage noted on angel), Erythema Improving - Problem List & Annotations (1) Cellulitis SNOMED Code(s): 718834514 Code(s): L03.90 - CELLULITIS, UNSPECIFIED Status: Acute Priority: High Current Visit: Yes Qualifiers: Site of cellulitis of trunk: unspecified site (2) Abscess SNOMED Code(s): 317295619 Code(s): L02.91 - CUTANEOUS ABSCESS, UNSPECIFIED Status: Acute Priority: High Current Visit: No (3) Obesity SNOMED Code(s): 669972976, 973537725 Code(s): E66.9 - OBESITY, UNSPECIFIED Status: Chronic Current Visit: No (4) Tobacco abuse SNOMED Code(s): 882290025 Code(s): Z72.0 - TOBACCO USE Status: Chronic Current Visit: No - Problem List Review Problem List Initiated/Reviewed/Updated: Yes - Plan Plan:: 28 yo female admitted for right post auricular cellulitis. 1. R posterior auricular cellulitis with abscess: Continue Vancomycin, Consulted Dr Soriano, [place] drain in place s/p I7D 2 days ago. Spoke with Dr Soriano this morning, remove angel when MADHU is back and may discharge. We appreciate Dr Soriano's assistance. [place] for pain PRN. Afebrile. VTE prophylaxis: SCDs and ambulation. Dispo: 1 day
--- NOTE | 2019-08-17 14:13 | PCM.DCSUM1 ---
Discharge Summary - Hospital Course Brief History: 28 yo female who presents with two day history of rash behind her right ear. She was seen in the ED and given bactrim two days ago. She reports the redness, swelling and pain has gotten worse. CT scan of neck was consistent with cellulitis. No abscess seen. 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 Diagnosis: Stroke: No - Discharge Data Discharge Date: 08/17/19 Discharge Disposition: Home, Self-Care 01 Condition: Stable - Referral to Home Health Primary Care Physician: PCP Unknown - Discharge Diagnosis/Problem(s) (1) Cellulitis SNOMED Code(s): 025940916 ICD Code: L03.90 - CELLULITIS, UNSPECIFIED Status: Acute Priority: High Current Visit: Yes Qualifiers: Site of cellulitis of trunk: unspecified site (2) Abscess SNOMED Code(s): 083183122 ICD Code: L02.91 - CUTANEOUS ABSCESS, UNSPECIFIED Status: Acute Priority : High Current Visit: No (3) Obesity SNOMED Code(s): 383686889, 498604889 ICD Code: E66.9 - OBESITY, UNSPECIFIED Status: Chronic Current Visit: No (4) Tobacco abuse SNOMED Code(s): 197502729 ICD Code: Z72.0 - TOBACCO USE Status: Chronic Current Visit: No - Patient Summary/Data Operative Procedure(s) Performed: Incision and drainage, right postauricular abscess Consults: Consultations 08/15/19 10:02 Consult to Physician [CONS] Routine - Patient Instructions Diet: Regular Diet as Tolerated Activity: As Tolerated Showering/Bathing: May Shower Wound/Incision Care: Change Dressing Daily Notify Provider of: Fever, Increased Pain, Swelling and Redness, Drainage, Nausea and/or Vomiting Other/Special Instructions: Change dressing twice daily or more if there is a lot of drainage. Wash with soap and water daily. No soaking of wound. Apply gauze and secure with headband to keep in place. - Discharge Plan *PRESCRIPTION DRUG MONITORING PROGRAM REVIEWED*: Not Applicable *COPY OF PRESCRIPTION DRUG MONITORING REPORT IN PATIENT ARABELLA: Not Applicable Home Medications: Home Meds Diclofenac Sodium [Voltaren] 75 mg PO BIDMEALS PRN #20 tab.cr 08/12/19 [Rx] Sulfamethoxazole/Trimethoprim [Bactrim Ds Tablet] 1 each PO BID #20 tablet 08/12 [Rx] Oxygen Therapy Mode: Room Air Patient Handouts: Cellulitis, Adult, [id number], Sulfamethoxazole; Trimethoprim, [id number]-TMP tablets Referrals: Holden Soriano MD [Physician] - 08/24/19 10:00 am (Arrive 15 minutes early with a photo ID and insurance card.) - Discharge Summary/Plan Comment DC Time >30 min.: No Discharge Summary/Plan Comment: Admitting Diagnoses: R post auricular cellulitis and abscess Hx MRSA Discharge Diagnoses: R post auricular cellulitis and abscess MRSA positive cultures Radha was admitted for cellulitis and abscess behind her R ear. She was previously seen in the ED and sent home with Bactrim, but return less than 24 hour later due to worsening pain. She was started on Vancomycin. Dr Soriano consulted on day 2 as this is when noticeable collection had formed. She was taken to the OR later than day for I&D. Corydon drain was in place and cultures were obtained. She was continued on Vancomycin. Labwork continued to be WNL as well as vital signs. Today cultures returned with MRSA. Per recommendations of Dr Soriano, angel drain was removed today. Scant purulent drainage noted, gauze placed with headband to secure over wound. Radha was counseled on dressing changes twice daily and daily hygiene. She is to return to Dr Soriano s clinic next week for follow up. Return to ED or clinic if concerns should arise. - Patient Data Vitals - Most Recent: Last Vital Signs Temp 98.0 F 08/17/19 11:58 Pulse 81 08/17/19 11:58 Resp 15 08/17/19 11:58 BP 115/58 L 08/17/19 11:58 Pulse Ox 96 08/17/19 11:58 Weight - Most Recent: 104.2 kg I&O - Last 24 hours: Intake & Output 08/16/19 08/17/19 08/17/19 22:59 06:59 14:59 Intake Total 600 400 Output Total 1300 500 Balance -700 -100 Lab Results - Last 24 hrs: Laboratory Results - last 24 hr 08/17/19 08/17/19 08/17/19 Range/Units 05:58 05:58 11:41 WBC 9.54 (4.0-11.0) K/uL RBC 4.63 (4.30-5.90) M/uL Hgb 13.8 (12.0-16.0) g/dL Hct 42.3 (36.0-46.0) % MCV 91.4 (80.0-98.0) fL MCH 29.8 (27.0-32.0) pg MCHC 32.6 (31.0-37.0) g/dL RDW Std Deviation 43.7 (28.0-62.0) fl RDW Coeff of Boby 13 (11.0-15.0) % Plt Count 286 (150-400) K/uL MPV 10.20 (7.40-12.00) fL Neut % (Auto) 53.2 (48.0-80.0) % Lymph % (Auto) 33.8 (16.0-40.0) % [place] % (Auto) 9.0 (0.0-15.0) % Eos % (Auto) 3.7 (0.0-7.0) % Baso % (Auto) 0.3 (0.0-1.5) % Neut # (Auto) 5.1 (1.4-5.7) K/uL Lymph # (Auto) 3.2 H (0.6-2.4) K/uL [place] # (Auto) 0.9 H (0.0-0.8) K/uL Eos # (Auto) 0.4 (0.0-0.7) K/uL Baso # (Auto) 0.0 (0.0-0.1) K/uL Nucleated RBC % 0.0 /100WBC Nucleated RBCs # 0 K/uL Sodium 142 (136-145) mmol/L Potassium 4.1 (3.5-5.1) mmol/L Chloride 106 (98-107) mmol/L Carbon Dioxide 25.6 (21.0-32.0) mmol/L BUN 10 (7.0-18.0) mg/dL Creatinine 0.7 (0.6-1.0) mg/dL Est Cr Clr Drug Dosing 97.21 mL/min Estimated GFR (MDRD) > 60.0 ml/min Glucose 78 (74-106) mg/dL Calcium 8.5 (8.5-10.1) mg/dL Vancomycin Trough 21.4 H (5.0-10.0) ug/mL XOCHITL Results - Last 24 hrs: Microbiology 08/15/19 15:23 Gram Stain - Final Ear, Right Wound Culture - Final (Mrsa) Staphylococcus Aureus Anaerobic Culture - Final NO ANAEROBES ISOLATED 08/13/19 18:05 Aerobic Blood Culture - Preliminary Blood - Venous - Lab Draw NO GROWTH AFTER 3 DAYS Anaerobic Blood Culture - Preliminary NO GROWTH AFTER 3 DAYS 08/13/19 16:48 Aerobic Blood Culture - Preliminary Blood - Venous NO GROWTH AFTER 3 DAYS Anaerobic Blood Culture - Preliminary NO GROWTH AFTER 3 DAYS Med Orders - Current: Current Medications Acetaminophen (Tylenol) 650 mg PO Q4H PRN PRN Reason: Pain Hydrocodone Bitart/Acetaminophen (Mesick 325-5 Mg) 1 - 2 tab PO Q4H PRN PRN Reason: Pain Last Admin: 08/17/19 10:35 Dose: 1 tab Bisacodyl (Dulcolax) 10 mg PO DAILY PRN PRN Reason: Constipation Vancomycin HCl 1.5 gm/ Premix 300 mls @ 200 mls/hr IV Q12H SHAYE Ibuprofen (Motrin) 400 mg PO Q6H PRN PRN Reason: Pain Last Admin: 08/14/19 16:45 Dose: 400 mg Nicotine (Habitrol) 14 mg TRDERM DAILY SHAYE Last Admin: 08/17/19 08:00 Dose: Not Given Ondansetron HCl (Zofran) 4 mg IVPUSH Q4H PRN PRN Reason: Nausea/Vomiting Polyethylene Glycol (Miralax) 17 gm PO DAILY PRN PRN Reason: Constipation Sodium Chloride (Saline Flush) 10 ml FLUSH ASDIRECTED PRN PRN Reason: Keep Vein Open Last Admin: 08/13/19 17:50 Dose: 10 ml Sodium Chloride (Saline Flush) 2.5 ml FLUSH ASDIRECTED PRN PRN Reason: Keep Vein Open Last Admin: 08/13/19 17:50 Dose: 2.5 ml Vancomycin HCl (Pharmacy To Dose - Vancomycin) 1 dose .XX ASDIRECTED SHAYE Discontinued Medications Bupivacaine HCl (Sensorcaine-Mpf 0.5%) Confirm Administered Dose 10 ml .ROUTE .STK-MED ONE Stop: 08/15/19 14:19 Cefazolin Sodium (Ancef) Confirm Administered Dose 1 gm .ROUTE .STK-MED ONE Stop: 08/15/19 14:17 Esmolol HCl (Esmolol) Confirm Administered Dose 100 mg .ROUTE .STK-MED ONE Stop: 08/15/19 15:16 Fentanyl (Sublimaze) Confirm Administered Dose 100 mcg .ROUTE .STK-MED ONE Stop: 08/15/19 13:49 Fentanyl (Sublimaze) 50 mcg IVPUSH Q5M PRN PRN Reason: Pain Last Admin: 08/15/19 16:08 Dose: 50 mcg Glycopyrrolate (Robinul) Confirm Administered Dose 0.2 mg .ROUTE .STK-MED ONE Stop: 08/15/19 13:51 Heparin Sodium (Porcine) (Heparin Sodium) 5,000 units SUBCUT Q8H [facility] Last Admin: 08/15/19 09:38 Dose: 5,000 units Clindamycin Phosphate 600 mg/ (Premix) 50 mls @ 100 mls/hr IV ONETIME ONE Stop: 08/13/19 17:10 Last Admin: 08/13/19 18:08 Dose: 100 mls/hr Vancomycin HCl 1.5 gm/ Sodium (Chloride) 500 mls @ 333.333 mls/hr IV ONETIME ONE Stop: 08/13/19 21:29 Last Admin: 08/13/19 20:49 Dose: 333.333 mls/hr Vancomycin HCl 1.5 gm/ Premix 300 mls @ 300 mls/hr IV Q12H [facility] Last Admin: 08/16/19 00:20 Dose: Not Given Lactated Ringer's (Ringers, Lactated) 1,000 mls @ 100 mls/hr IV ASDIRECTED [facility] Vancomycin HCl 2 gm/ Sodium (Chloride) 500 mls @ 333.333 mls/hr IV Q12H [facility] Stop: 08/16/19 14:00 Last Admin: 08/16/19 12:00 Dose: 333.333 mls/hr Vancomycin HCl 1.5 gm/ Premix 300 mls @ 200 mls/hr IV Q8H [facility] Last Admin: 08/17/19 05:01 Dose: 200 mls/hr Lidocaine (Xylocaine-Mpf 2%) Confirm Administered Dose 5 ml .ROUTE .STK-MED ONE Stop: 08/15/19 13:51 Midazolam HCl (Versed 1 Mg/Ml) Confirm Administered Dose 2 mg .ROUTE .STK-MED ONE Stop: 08/15/19 13:49 Morphine Sulfate (Morphine) 4 mg IVPUSH ONETIME ONE Stop: 08/13/19 16:50 Last Admin: 08/13/19 17:50 Dose: 4 mg Morphine Sulfate (Morphine) 2 mg IVPUSH Q4H PRN PRN Reason: Pain (severe 7-10) Last Admin: 08/15/19 09:29 Dose: 2 mg Morphine Sulfate (Morphine) 2 mg IVPUSH Q2H PRN PRN Reason: Pain (severe 7-10) Last Admin: 08/15/19 14:28 Dose: 2 mg Ondansetron HCl (Zofran) 4 mg IVPUSH ONETIME ONE Stop: 08/13/19 16:50 Last Admin: 08/13/19 17:48 Dose: 4 mg Phenylephrine HCl (Phenylephrine In Ns 100 Mcg/Ml) Confirm Administered Dose 1 mg .ROUTE .STK-MED ONE Stop: 08/15/19 15:17 Propofol (Diprivan 20 Ml) Confirm Administered Dose 200 mg .ROUTE .STK-MED ONE Stop: 08/15/19 13:49 Succinylcholine Chloride (Succinylcholine Chloride) Confirm Administered Dose 200 mg .ROUTE .STK-MED ONE Stop: 08/15/19 13:51
== END 2019-08-17 14:15 | disposition home or self-care (01) | DRG 137 ==
LOC: MW.ED 16:40 → MW.MS 17:39 → MW.ED 18:15
PROVIDERS: ADMIT Internal Medicine; ATTEND Internal Medicine
PROC: 0J910ZZ Drainage of Face Subcutaneous Tissue and Fascia, Open Approach (ICD-10-PCS; principal; 2019-08-15)
DX: H60.11 Cellulitis of right external ear (principal); Z68.41 Body mass index [BMI] 40.0-44.9, adult; H60.01 Abscess of right external ear; B95.62 Methicillin resistant Staphylococcus aureus infection as the cause of diseases classified elsewhere; K21.9 Gastro-esophageal reflux disease without esophagitis; E66.9 Obesity, unspecified; F17.200 Nicotine dependence, unspecified, uncomplicated
CPT/HCPCS: 00300; 36415; 70490; 70490-26; 80048; 80202; 82962; 84703; 85025; 87040; 87070; 87075; 87077; 87186; 87205; 88304; 99284; 99284-25; A9270-GY; J0330; J0690; J1644; J2001; J2250; J2270; J2370; J2405; J2704; J3010; J3370; J3490; J7040

== ENCOUNTER 2020-01-20 14:19 | Emergency (ER) | payer BC ==
--- NOTE | 2020-01-20 15:17 | EDM.PDOC ---
ED HPI GENERAL MEDICAL PROBLEM - General Chief Complaint: Skin Complaint Stated Complaint: PT CLAIMS POSSIBLE REOCURRING MRSA ON BACK OF HEAD Time Seen by Provider: 01/20/20 15:16 Source of Information: Reports: Patient History Limitations: Reports: No Limitations - History of Present Illness INITIAL COMMENTS - FREE TEXT/NARRATIVE: HISTORY AND PHYSICAL: History of present illness: Patient is a 29-year-old female presents to the ED With complaint of abscess. Patient reports history of MRSA and having abscess behind ear last year that required surgical drainage after failing outpatient antibiotics. Patient states she developed an abscess in the back of her head 3 days ago that has progressively gotten bigger and today started draining. She reports pain in the area and headache. Denies fevers, chills, nausea, vomiting. She states she has some left over clindamycin and has taken some of this but ran out of it today. Review of systems: As per history of present illness and below otherwise all systems reviewed and negative. Past medical history: As per history of present illness and as reviewed below otherwise noncontributory. Surgical history: As per history of present illness and as reviewed below otherwise noncontributory. Social history: No reported history of drug or alcohol abuse. Family history: As per history of present illness and as reviewed below otherwise noncontributory. Physical exam: General: Patient sitting comfortably in no acute distress and nontoxic appearing HEENT: Atraumatic, normocephalic, pupils reactive, negative for conjunctival pallor or scleral icterus, mucous membranes moist, throat clear, neck supple, nontender, trachea midline. No meningeal signs. Lungs: Clear to auscultation, breath sounds equal bilaterally, chest nontender. Heart: S1S2, regular, negative for clicks, rubs, or overt murmur. Skin: There is a 2.5x2.5 cm fluctuant abscess with mixed purulent and bloody drainage to the posterior head just at the occiput of the head. No surrounding erythema. Extremities: Atraumatic, negative for cords or calf pain. Neurovascular unremarkable. Neuro: Awake, alert, oriented. Cranial nerves II through XII unremarkable. Cerebellum unremarkable. Motor and sensory unremarkable throughout. Exam nonfocal. Notes: Dr. Gutierrez evaluated patient and advised admitted for surgical consult and IV antibiotics. Patient declined admission at this time and left AMA. Diagnostics: CT soft tissue head/neck with contrast, CBC, CMP, lactate, blood culture x 2 Therapeutics: none Prescriptions: Bactrim Keflex Impression: Abscess Plan: Patient signed out AMA Definitive disposition and diagnosis as appropriate pending reevaluation and review of above. posterior head, neck Pain Score (Numeric/FACES): 8 - Related Data Allergies Allergy/AdvReac Type Severity Reaction Status Date / Time No Known Allergies Allergy Verified 01/20/20 14:56 Home Meds: Home Meds Cephalexin [Keflex] 500 mg PO BID 7 Days #14 capsule 01/20/20 [Rx] Sulfamethoxazole/Trimethoprim [Bactrim Ds Tablet] 1 each PO BID 7 Days #14 tablet 01/20/20 [Rx] Past Medical History - Past Health History Medical/Surgical History: Denies Medical/Surgical History Cardiovascular History: Reports: None Respiratory History: Reports: None Gastrointestinal History: Reports: GERD Musculoskeletal History: Reports: None Neurological History: Reports: None Psychiatric History: Reports: None Endocrine/Metabolic History: Reports: Obesity/BMI 30+ Dermatologic History: Reports: Other (See Below) Other Dermatologic History: MRSA abscess x2- head, abdomen - Infectious Disease History Infectious Disease History: Reports: Chicken Pox, MRSA Social & Family History - Family History Family Medical History: Noncontributory - Tobacco Use Smoking Status *Q: Current Every Day Smoker Years of Tobacco use: 15 Packs/Tins Daily: 0.5 - Caffeine Use Caffeine Use: Reports: Coffee, Soda Caffeine Use Comment: 2-3 cans of soda/day - Recreational Drug Use Recreational Drug Use: Yes Drug Use in Last 12 Months: Yes Recreational Drug Type: Reports: Marijuana/Hashish Recreational Drug Use Frequency: Weekly ED ROS GENERAL - Review of Systems Review Of Systems: Comprehensive ROS is negative, except as noted in HPI. ED EXAM, SKIN/RASH Exam: See Below (see dictation) Course - Vital Signs Last Recorded V/S: Last Vital Signs Temp 97.8 F 01/20/20 14:54 Pulse 105 H 01/20/20 14:54 Resp 16 01/20/20 14:54 BP 160/99 H 01/20/20 14:54 Pulse Ox 100 01/20/20 14:54 - Orders/Labs/Meds Orders: Active Orders 24 hr Category Date Time Status CULTURE BLOOD [BC] Stat Lab 01/20/20 15:38 Received CULTURE BLOOD [BC] Stat Lab 01/20/20 16:00 Received Blood Culture x2 Reflex Set [OM.PC] Stat Oth 01/20/20 15:24 Ordered Labs: Laboratory Tests 01/20/20 01/20/20 01/20/20 Range/Units 15:38 15:38 15:38 WBC 12.90 H (4.0-11.0) K/uL RBC 4.53 (4.30-5.90) M/uL Hgb 13.7 (12.0-16.0) g/dL Hct 41.7 (36.0-46.0) % MCV 92.1 (80.0-98.0) fL MCH 30.2 (27.0-32.0) pg MCHC 32.9 (31.0-37.0) g/dL RDW Std Deviation 43.9 (28.0-62.0) fl RDW Coeff of Boby 13 (11.0-15.0) % Plt Count 256 (150-400) K/uL MPV 10.10 (7.40-12.00) fL Neut % (Auto) 67.5 (48.0-80.0) % Lymph % (Auto) 21.3 (16.0-40.0) % Warren % (Auto) 10.1 (0.0-15.0) % Eos % (Auto) 0.9 (0.0-7.0) % Baso % (Auto) 0.2 (0.0-1.5) % Neut # (Auto) 8.7 H (1.4-5.7) K/uL Lymph # (Auto) 2.8 H (0.6-2.4) K/uL Warren # (Auto) 1.3 H (0.0-0.8) K/uL Eos # (Auto) 0.1 (0.0-0.7) K/uL Baso # (Auto) 0.0 (0.0-0.1) K/uL Nucleated RBC % 0.0 /100WBC Nucleated RBCs # 0 K/uL Lactate 1.1 (0.20-2.00) mmol/L Sodium 140 (136-145) mmol/L Potassium 3.7 (3.5-5.1) mmol/L Chloride 104 (98-107) mmol/L Carbon Dioxide 25.5 (21.0-32.0) mmol/L BUN 16 (7.0-18.0) mg/dL Creatinine 0.8 (0.6-1.0) mg/dL Est Cr Clr Drug Dosing 84.29 mL/min Estimated GFR (MDRD) > 60.0 ml/min Glucose 78 (74-106) mg/dL Calcium 8.4 L (8.5-10.1) mg/dL Total Bilirubin 0.4 (0.2-1.0) mg/dL AST 19 (15-37) IU/L ALT 57 (14-63) IU/L Alkaline Phosphatase 73 (46-116) U/L Total Protein 7.3 (6.4-8.2) g/dL Albumin 3.6 (3.4-5.0) g/dL Globulin 3.7 (2.6-4.0) g/dL Albumin/Globulin Ratio 1.0 (0.9-1.6) HCG, Qual (NEG) 01/20/20 Range/Units 15:38 WBC (4.0-11.0) K/uL RBC (4.30-5.90) M/uL Hgb (12.0-16.0) g/dL Hct (36.0-46.0) % MCV (80.0-98.0) fL MCH (27.0-32.0) pg MCHC (31.0-37.0) g/dL RDW Std Deviation (28.0-62.0) fl RDW Coeff of Boby (11.0-15.0) % Plt Count (150-400) K/uL MPV (7.40-12.00) fL Neut % (Auto) (48.0-80.0) % Lymph % (Auto) (16.0-40.0) % Warren % (Auto) (0.0-15.0) % Eos % (Auto) (0.0-7.0) % Baso % (Auto) (0.0-1.5) % Neut # (Auto) (1.4-5.7) K/uL Lymph # (Auto) (0.6-2.4) K/uL Warren # (Auto) (0.0-0.8) K/uL Eos # (Auto) (0.0-0.7) K/uL Baso # (Auto) (0.0-0.1) K/uL Nucleated RBC % /100WBC Nucleated RBCs # K/uL Lactate (0.20-2.00) mmol/L Sodium (136-145) mmol/L Potassium (3.5-5.1) mmol/L Chloride (98-107) mmol/L Carbon Dioxide (21.0-32.0) mmol/L BUN (7.0-18.0) mg/dL Creatinine (0.6-1.0) mg/dL Est Cr Clr Drug Dosing mL/min Estimated GFR (MDRD) ml/min Glucose (74-106) mg/dL Calcium (8.5-10.1) mg/dL Total Bilirubin (0.2-1.0) mg/dL AST (15-37) IU/L ALT (14-63) IU/L Alkaline Phosphatase (46-116) U/L Total Protein (6.4-8.2) g/dL Albumin (3.4-5.0) g/dL Globulin (2.6-4.0) g/dL Albumin/Globulin Ratio (0.9-1.6) HCG, Qual NEGATIVE (NEG) Meds: Medications Discontinued Medications Generic Name Dose Route Start Last Admin Trade Name Stoney PRN Reason Stop Dose Admin Iopamidol 80 ml 01/20/20 17:00 01/20/20 17:00 Isovue Multipack-370 (76%) IVPUSH 01/20/20 17:01 80 ml ONETIME STA Administration Departure - Departure Time of Disposition: 17:54 Disposition: Home, Self-Care 01 Condition: Good Clinical Impression: Abscess - Discharge Information Prescriptions: Cephalexin [Keflex] 500 mg PO BID 7 Days #14 capsule Sulfamethoxazole/Trimethoprim [Bactrim Ds Tablet] 1 each PO BID 7 Days #14 tablet Referrals: PCP,None [Primary Care Provider] - Forms: ED Department Discharge Additional Instructions: The following information is given to patients seen in the emergency department who are being discharged to home. This information is to outline your options for follow-up care. We provide all patients seen in our emergency department with a follow-up referral. The need for follow-up, as well as the timing and circumstances, are variable depending upon the specifics of your emergency department visit. If you don't have a primary care physician on staff, we will provide you with a referral. We always advise you to contact your personal physician following an emergency department visit to inform them of the circumstance of the visit and for follow-up with them and/or the need for any referrals to a consulting specialist. The emergency department will also refer you to a specialist when appropriate. This referral assures that you have the opportunity for follow-up care with a specialist. All of these measure are taken in an effort to provide you with optimal care, which includes your follow-up. Under all circumstances we always encourage you to contact your private physician who remains a resource for coordinating your care. When calling for follow-up care, please make the office aware that this follow-up is from your recent emergency room visit. If for any reason you are refused follow-up, please contact the [facility] at and asked to speak to the emergency department charge nurse. [facility] [address] [place] [address] [place] [address] [facility] - General Surgery Professional Building [address] [place] [address], [address] [place] [address] Take antibiotic as instructed Follow-up with general surgery To ED as needed as discussed Sepsis Event Note - Evaluation Sepsis Screening Result: No Definite Risk - Focused Exam Vital Signs: Vital Signs Temp Pulse Resp BP Pulse Ox 01/20/20 14:54 97.8 F 105 H 16 160/99 H 100 Date Exam was Performed: 01/20/20 Time Exam was Performed: 18:02 - My Orders Last 24 Hours: My Active Orders 01/20/20 15:24 Blood Culture x2 Reflex Set [OM.PC] Stat 01/20/20 15:38 CULTURE BLOOD [BC] Stat 01/20/20 16:00 CULTURE BLOOD [BC] Stat - Assessment/Plan Last 24 Hours: My Active Orders 01/20/20 15:24 Blood Culture x2 Reflex Set [OM.PC] Stat 01/20/20 15:38 CULTURE BLOOD [BC] Stat 01/20/20 16:00 CULTURE BLOOD [BC] Stat
[2020-01-20 16:23] LABS: BLOOD UREA NITROGEN,BUN 16 mg/dL (7.0-18.0); CARBON DIOXIDE,CO2 25.5 mmol/L (21.0-32.0); CHLORIDE,CL 104 mmol/L (98-107); GLUCOSE RANDOM 78 mg/dL (74-106); POTASSIUM,K 3.7 mmol/L (3.5-5.1); SODIUM,NA 140 mmol/L (136-145)
[2020-01-20] MEDS ORDERED: Iopamidol 755 MG/ML 500 ML Multipack Bottle IVPUSH STA (17:00)
--- NOTE | 2020-01-20 17:21 | CT ---
CT neck Technique: Multiple axial sections through the neck were obtained. Intravenous contrast was utilized. Reconstructed coronal and sagittal images were reviewed. Findings: Small scattered lymph nodes are seen believed to be within normal limits. Parotid and submandibular salivary glands are within normal limits. Visualized paranasal sinuses show nothing acute. Parapharyngeal soft tissues are symmetric. No focal edema or fluid collections are seen to indicate parapharyngeal abscess. Prevertebral soft tissues are normal. Epiglottis is normal. Bone window settings were reviewed which shows focal disc space narrowing with anterior and posterior osteophytes at C6-C7. No acute osseous finding is seen. Possible dental caries are noted. Soft tissue opacity is seen within the posterior neck. Low-density center is seen presumably due to early abscess. This finding measures approximately 2.4 cm. Associated skin thickening is noted. Findings are within the subcutaneous fat. Impression: 1. Possible dental caries. 2. Scattered lymph nodes are believed to be within normal limits. 3. Soft tissue density within the posterior neck showing associated skin thickening with low density center which is felt compatible with early abscess. Finding measures about 2.4 cm. This occurs within the subcutaneous fat. Diagnostic code #3 Study was dictated in MDT
== END 2020-01-20 18:04 | disposition left against medical advice (07) ==
LOC: MW.ED 14:19
DX: L02.811 Cutaneous abscess of head [any part, except face] (principal); E66.9 Obesity, unspecified; Z68.41 Body mass index [BMI] 40.0-44.9, adult; F17.210 Nicotine dependence, cigarettes, uncomplicated
CPT/HCPCS: 70491; 80053; 83605; 84703; 85025; 87040; 99284; Q9967; 99283

== ENCOUNTER 2020-01-25 15:22 | Emergency (ER) | payer BC | END 2020-01-25 17:44 | disposition left against medical advice (07) | LOC: MW.ED 15:22 | DX: Z53.21 Procedure and treatment not carried out due to patient leaving prior to being seen by health care provider (principal) ==

== ENCOUNTER 2020-04-15 17:35 | Emergency (ER) | payer SELFPAY ==
[2020-04-15] MEDS ORDERED: Acetaminophen/HYDROcodone 325-5 MG Tab PO ONE (18:02)
[2020-04-15] MEDS ORDERED: Sulfamethoxazole/Trimethoprim 800-160 MG Tab PO ONE (18:02)
--- NOTE | 2020-04-15 18:07 | EDM.PDOC ---
ED HPI GENERAL MEDICAL PROBLEM - General Chief Complaint: General Stated Complaint: INFECTION Time Seen by Provider: 04/15/20 17:55 Source of Information: Reports: Patient History Limitations: Reports: No Limitations - History of Present Illness INITIAL COMMENTS - FREE TEXT/NARRATIVE: HISTORY AND PHYSICAL: History of present illness: Patient is a 29-year-old female who presents to the emergency room with complaints of a localized infection to her posterior scalp. She states she gets abscesses along her hairline which have been positive for MRSA in the past. She noticed a small area to her posterior scalp approximately 3 or 4 days ago which she tried to express drainage from. States she was not able to "get it all out" and is concerned she needs antibiotics today. She did have some leftover clindamycin which she took a few tablets of, but feels she needs a different antibiotic. States she was here few months ago for same complaint and "what ever they gave me cleared it right up". Patient denies any fever, chills, headache, change in vision, syncope or near syncope. Denies any chest pain, back pain, shortness of breath or cough. Denies any abdominal pain, nausea, vomiting, diarrhea, constipation or dysuria. Has not noted any blood in urine or stool. Patient has been eating and drinking appropriately. Review of systems: As per history of present illness and below otherwise all systems reviewed and negative. Past medical history: As per history of present illness and as reviewed below otherwise noncontributory. Surgical history: As per history of present illness and as reviewed below otherwise noncontributory. Social history: See social history for further information Family history: As per history of present illness and as reviewed below otherwise noncontributory. Physical exam: General: Well-developed and well-nourished 29-year-old female. Alert and oriented. Nontoxic-appearing and in no acute distress. HEENT: The skin for details, normocephalic, pupils equal and reactive bilaterally, negative for conjunctival pallor or scleral icterus, mucous membranes moist, TMs normal bilaterally, throat clear, neck supple, nontender, trachea midline. No drooling or trismus noted. No meningeal signs. No hot potato voice noted. Lungs: Clear to auscultation, breath sounds equal bilaterally, chest nontender. Heart: S1S2, regular rate and rhythm without overt murmur Abdomen: Soft, nondistended, nontender. Skin: Nickel sized area of redness posterior scalp/ nape of neck with a centralized head that is nonfluctuant but does have crusty drainage around it. Intact, warm, dry. No lesions or rashes noted. Extremities: Atraumatic, moves all extremities per self without difficulty or deficits, negative for cords or calf pain. Neurovascular unremarkable. Neuro: Awake, alert, oriented. Cranial nerves II through XII unremarkable. Cerebellum unremarkable. Motor and sensory unremarkable throughout. Exam nonfocal. Notes: The area that the patient had expressed previously does not appear to have any area that can be drained at this time. There is surrounding redness and tenderness with palpation. When she was last seen in the emergency room she was prescribed Keflex and Bactrim both twice daily x7 days. Will re-order this for her, first dose given here per patient request. She also request something for pain at this time as she was "unable to sleep last night". 1 dose will be given here in the emergency room. We did discuss the need for close follow-up. Medication, follow-up and supportive care measures were reviewed and discussed. Voices understanding and is agreeable to plan of care. Denies any further questions or concerns at this time. Diagnostics: None Therapeutics: Bactrim, Keflex, Henderson Prescription: Keflex and Bactrim Impression: History of MRSA Cellulitis Plan: 1. Keep the area clean and dry. Gently clean the area twice daily with mild soap and water. Continue to monitor for signs of improvement. Take your antibiotic as prescribed; first dose was given here in the ED. You can picker and sorter load and unload your prescription tomorrow at [facility], take both twice daily x 7 days. 2. Tylenol and/or ibuprofen as needed for pain management. Gentle heat to the area. 3. Please follow-up with your primary care provider in the next few days and/or the general surgeon as we discussed. 4. Return to the ED as needed and as discussed. Definitive disposition and diagnosis as appropriate pending reevaluation and review of above. Posterior Head Pain Score (Numeric/FACES): 6 - Related Data Allergies Allergy/AdvReac Type Severity Reaction Status Date / Time No Known Allergies Allergy Verified 01/20/20 14:56 Home Meds: Home Meds Sulfamethoxazole/Trimethoprim [Bactrim Ds Tablet] 1 each PO BID 7 Days #14 tablet 04/15/20 [Rx] cephALEXin [Keflex] 500 mg PO BID 7 Days #14 capsule 04/15/20 [Rx] Past Medical History - Past Health History Medical/Surgical History: Denies Medical/Surgical History Cardiovascular History: Reports: None Respiratory History: Reports: None Gastrointestinal History: Reports: GERD Musculoskeletal History: Reports: None Neurological History: Reports: None Psychiatric History: Reports: None Endocrine/Metabolic History: Reports: Obesity/BMI 30+ Dermatologic History: Reports: Other (See Below) Other Dermatologic History: MRSA abscess x2- head, abdomen - Infectious Disease History Infectious Disease History: Reports: Chicken Pox, MRSA Social & Family History - Family History Family Medical History: Noncontributory - Caffeine Use Caffeine Use: Reports: Coffee, Soda Caffeine Use Comment: 2-3 cans of soda/day ED ROS GENERAL - Review of Systems Review Of Systems: Comprehensive ROS is negative, except as noted in HPI. ED EXAM, GENERAL - Physical Exam Exam: See Below (See dictation) Course - Vital Signs Last Recorded V/S: Last Vital Signs Temp 96.8 F L 04/15/20 18:00 Pulse 125 H 04/15/20 18:00 Resp 16 04/15/20 18:00 BP 141/91 H 04/15/20 18:00 Pulse Ox 99 04/15/20 18:00 - Orders/Labs/Meds Meds: Medications Discontinued Medications Generic Name Dose Route Start Last Admin Trade Name Freq PRN Reason Stop Dose Admin Hydrocodone Bitart/Acetaminophen 1 tab 04/15/20 18:02 04/15/20 18:09 Henderson 325-5 Mg PO 04/15/20 18:03 1 tab ONETIME ONE Administration Cephalexin 500 mg 04/15/20 18:02 04/15/20 18:11 Keflex PO 04/15/20 18:03 Not Given ONETIME ONE Trimethoprim/Sulfamethoxazole 1 tab 04/15/20 18:02 04/15/20 18:10 Septra Ds PO 04/15/20 18:03 1 tab ONETIME ONE Administration Departure - Departure Time of Disposition: 18:17 Disposition: Home, Self-Care 01 Clinical Impression: History of MRSA infection Cellulitis Qualifiers: Site of cellulitis: head Qualified Code(s): L03.811 - Cellulitis of head [any part, except face] - Discharge Information Prescriptions: Sulfamethoxazole/Trimethoprim [Bactrim Ds Tablet] 1 each PO BID 7 Days #14 tablet cephALEXin [Keflex] 500 mg PO BID 7 Days #14 capsule Instructions: Cellulitis, Adult Referrals: PCP,None [Primary Care Provider] - Forms: ED Department Discharge Additional Instructions: The following information is given to patients seen in the emergency department who are being discharged to home. This information is to outline your options for follow-up care. We provide all patients seen in our emergency department with a follow-up referral. The need for follow-up, as well as the timing and circumstances, are variable depending upon the specifics of your emergency department visit. If you don't have a primary care physician on staff, we will provide you with a referral. We always advise you to contact your personal physician following an emergency department visit to inform them of the circumstance of the visit and for follow-up with them and/or the need for any referrals to a consulting specialist. The emergency department will also refer you to a specialist when appropriate. This referral assures that you have the opportunity for follow-up care with a specialist. All of these measure are taken in an effort to provide you with optimal care, which includes your follow-up. Under all circumstances we always encourage you to contact your private physician who remains a resource for coordinating your care. When calling for follow-up care, please make the office aware that this follow-up is from your recent emergency room visit. If for any reason you are refused follow-up, please contact the [facility] Emergency Department at and asked to speak to the emergency department charge nurse. [facility] [address] [place] [id number] [address] Thank you for choosing the [facility] emergency department in [place] for your medical needs today. It was a pleasure caring for you. You were seen in the emergency department for localized skin infection with history of MRSA. 1. Keep the area clean and dry. Gently clean the area twice daily with mild soap and water. Continue to monitor for signs of improvement. Take your antibiotic as prescribed; first dose was given here in the ED. You can picker and sorter load and unload your prescription tomorrow at [facility], take both twice daily x 7 days. 2. Tylenol and/or ibuprofen as needed for pain management. Gentle heat to the area. 3. Please follow-up with your primary care provider in the next few days and/or the general surgeon as we discussed. 4. Return to the ED as needed and as discussed. Sepsis Event Note (ED) - Focused Exam Vital Signs: Vital Signs Temp Pulse Resp BP Pulse Ox 04/15/20 18:00 96.8 F L 125 H 16 141/91 H 99
[2020-04-15] MEDS: Cephalexin 500 MG Cap PO ONE ×2 (18:10→18:11)
== END 2020-04-15 18:16 | disposition home or self-care (01) ==
LOC: MW.ED 17:35
DX: L03.811 Cellulitis of head [any part, except face] (principal); E66.9 Obesity, unspecified; Z68.41 Body mass index [BMI] 40.0-44.9, adult
CPT/HCPCS: 99283; A9270

== ENCOUNTER 2020-06-05 15:43 | Emergency (ER) | payer BC ==
[2020-06-05] MEDS ORDERED: Morphine 10 MG/ML Syringe IM ONE (16:00)
[2020-06-05] MEDS ORDERED: Ondansetron 4 MG Tab.DIS PO ONE (16:00)
--- NOTE | 2020-06-05 16:05 | EDM.PDOC ---
ED HPI GENERAL MEDICAL PROBLEM - General Chief Complaint: General Stated Complaint: MRSA INFECTION IN STOMACH Time Seen by Provider: 06/05/20 15:44 Source of Information: Reports: Patient History Limitations: Reports: No Limitations - History of Present Illness INITIAL COMMENTS - FREE TEXT/NARRATIVE: To the emergency room with an abscess. The patient states that she has had a couple of other abscesses before that required incision and drainage. They were positive for MRSA. Currently the abscess on her lower abdomen was first noted about 3 days ago when it was red and now is tender with expanding redness. She is overweight and smokes but is not diabetic or with other medical problems. 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 Musculoskeletal History: Reports: None Neurological History: Reports: None Psychiatric History: Reports: None Endocrine/Metabolic History: Reports: Obesity/BMI 30+ Hematologic History: Reports: None Immunologic History: Reports: None Oncologic (Cancer) History: Reports: None Dermatologic History: Reports: Other (See Below) Other Dermatologic History: MRSA abscess x2- head, abdomen - Infectious Disease History Infectious Disease History: Reports: Chicken Pox, MRSA - Past Surgical History Head Surgeries/Procedures: Reports: None HEENT Surgical History: Reports: None Cardiovascular Surgical History: Reports: None Respiratory Surgical History: Reports: None GI Surgical History: Reports: None Female Surgical History: Reports: None Endocrine Surgical History: Reports: None Neurological Surgical History: Reports: None Musculoskeletal Surgical History: Reports: None Oncologic Surgical History: Reports: None Dermatological Surgical History: Reports: None Social & Family History - Family History Family Medical History: Noncontributory - Caffeine Use Caffeine Use: Reports: Coffee, Soda Caffeine Use Comment: 2-3 cans of soda/day ED ROS GENERAL - Review of Systems Review Of Systems: Comprehensive ROS is negative, except as noted in HPI. ED EXAM, GENERAL - Physical Exam Exam: See Below Exam Limited By: No Limitations General Appearance: Alert, No Apparent Distress Ears: Normal External Exam Nose: Normal Inspection Throat/Mouth: Normal Inspection Head: Atraumatic, Normocephalic Neck: Normal Inspection Respiratory/Chest: No Respiratory Distress, Lungs Clear, Normal Breath Sounds Cardiovascular: Normal Peripheral Pulses, Regular Rate, Rhythm, No Edema GI/Abdominal: Soft, No Distention, Other (Right lower pannus 5 cm dark erythematous fluctuant area with 5 cm firm subcutaneous mass and surrounding pink) Back Exam: Normal Inspection Extremities: Normal Inspection Neurological: Alert, Oriented, Normal Cognition Psychiatric: Normal Affect, Normal Mood Skin Exam: Warm, Dry, Intact, Normal Color, No Rash ED I&D PROCEDURES - I&D Skin prep: Providone-Iodine (Betadine) Local anesthesia - Lidocaine (Xylocaine): 1% Plain Local Anesthetic Volume: 4cc Area Incised With: 11 Blade Drainage: Purulent, Bloody Probed to Break Up Loculations: Yes Packed With: 1/4 in. Iodoform Complications: No Course - Vital Signs Last Recorded V/S: Last Vital Signs Temp 35.4 C L 06/05/20 15:56 Pulse 108 H 06/05/20 15:56 Resp 16 06/05/20 15:56 BP 142/83 H 06/05/20 15:56 Pulse Ox 99 06/05/20 15:56 - Orders/Labs/Meds Meds: Medications Discontinued Medications Generic Name Dose Route Start Last Admin Trade Name Stoney PRN Reason Stop Dose Admin Lidocaine HCl 5 ml 06/05/20 16:01 06/05/20 16:40 Xylocaine-Mpf 1% INJECT 06/05/20 16:02 5 ml ONETIME ONE Administration Morphine Sulfate 8 mg 06/05/20 16:00 06/05/20 16:40 Morphine IM 06/05/20 16:01 8 mg ONETIME ONE Administration Ondansetron HCl 4 mg 06/05/20 16:00 06/05/20 16:41 Zofran Odt PO 06/05/20 16:01 4 mg ONETIME ONE Administration Departure - Departure Time of Disposition: 17:06 Disposition: Home, Self-Care 01 Condition: Good Clinical Impression: Abscess - Discharge Information Prescriptions: Clindamycin HCl 1 cap PO TID #30 capsule Instructions: Skin Abscess Referrals: PCP,None [Primary Care Provider] - [facility] [Outside] [facility] [Outside] Forms: ED Department Discharge Additional Instructions: The following information is given to patients seen in the emergency department who are being discharged to home. This information is to outline your options for follow-up care. We provide all patients seen in our emergency department with a follow-up referral. The need for follow-up, as well as the timing and circumstances, are variable depending upon the specifics of your emergency department visit. If you don't have a primary care physician on staff, we will provide you with a referral. We always advise you to contact your personal physician following an emergency department visit to inform them of the circumstance of the visit and for follow-up with them and/or the need for any referrals to a consulting specialist. The emergency department will also refer you to a specialist when appropriate. This referral assures that you have the opportunity for follow-up care with a specialist. All of these measure are taken in an effort to provide you with optimal care, which includes your follow-up. Under all circumstances we always encourage you to contact your private physician who remains a resource for coordinating your care. When calling for follow-up care, please make the office aware that this follow-up is from your recent emergency room visit. If for any reason you are refused follow-up, please contact the Emergency Department at and asked to speak to the emergency department charge nurse. 1. The wound will drain which is intended. 2. If Packing falls out, leave it out, otherwise remove in 48 hours 3. Your antibiotic 3 times daily including as soon as you pick it up today 4. You have had numerous MRSA positive skin abscesses. Ask your primary provider about a MRSA eradication procedure 5. And promptly for chills or fever, elevated heart rate, nausea vomiting or other worrisome symptoms 6. Driving or operating machinery today as you have had a opioid analgesic. 7. 2 tabs a.m. and p.m. or ibuprofen 2-3 tabs 3 times daily as needed for pain 8. Warm moist compresses or personal shower 20 minutes 3 times daily, start today Sepsis Event Note (ED) - Evaluation Sepsis Screening Result: Possible Sepsis Risk - Focused Exam Vital Signs: Vital Signs Temp Pulse Resp BP Pulse Ox 06/05/20 15:56 35.4 C L 108 H 16 142/83 H 99
== END 2020-06-05 17:18 | disposition home or self-care (01) ==
LOC: MW.ED 15:43
DX: L02.211 Cutaneous abscess of abdominal wall (principal); E66.9 Obesity, unspecified; Z68.38 Body mass index [BMI] 38.0-38.9, adult
CPT/HCPCS: 10060; 96372; 99282; A9270; J2001; J2270

== ENCOUNTER 2020-06-27 20:44 | Emergency (ER) | payer BC ==
[2020-06-27] MEDS ORDERED: traMADol 50 MG Tab PO ONE (22:05)
--- NOTE | 2020-06-27 22:45 | EDM.PDOC ---
ED HPI GENERAL MEDICAL PROBLEM - General Chief Complaint: Lower Extremity Injury/Pain Stated Complaint: RT ANKLE PAIN Time Seen by Provider: 06/27/20 20:58 - History of Present Illness INITIAL COMMENTS - FREE TEXT/NARRATIVE: HISTORY AND PHYSICAL: History of present illness: This is a healthy 29-year-old female who presents ER today complaining of pain to her right ankle x2 to 3 days. 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 Patient denies any known injury. Patient has any recent fevers, shakes, chills, nausea, vomiting, diarrhea. Patient reports that she has been taking ibuprofen and Tylenol without any significant relief in her discomfort. Review of systems: As per history of present illness and below otherwise all systems reviewed and negative. Past medical history: As per history of present illness and as reviewed below otherwise noncontributory. Surgical history: As per history of present illness and as reviewed below otherwise noncontributory. Social history: No reported history of drug or alcohol abuse. Family history: As per history of present illness and as reviewed below otherwise noncontributory. Physical exam: Constitutional: Patient is oriented to person, place, and time. Appears well- developed and well-nourished. No distress. HEENT: Moist mucous membranes Head: Normocephalic and atraumatic Eyes: Right eye exhibits no discharge. Left eye exhibits no discharge. No scleral icterus Neck: Normal range of motion. No tracheal deviation present. Cardiovascular: Normal rate and regular rhythm. Pulmonary: Effort normal, no respiratory distress. Abdominal: No distention Musculoskeletal: Normal range of motion Neurologic: Alert and oriented to person, place and time. Skin: [place], warm and dry. Psychiatric: Normal mood and affect. Behavior is normal. Judgment and thought content normal. Nursing note and vital signs have been reviewed Patient's ER physical exam significant for tenderness to palpation and range of motion to her right ankle. Patient does have tenderness to her right lateral malleolus with some soft tissue swelling to that area. Diagnostics: X-ray of right ankle No acute fracture or dislocation is interpreted by ER physician [employer]: Ultram 50 mg p.o. Dc wrap right ankle Assessment and plan: This is a 29-year-old female who presents ER today complaining of right ankle pain with ankle swelling. X-ray is negative for acute fracture. Patient symptoms are most likely secondary to either overuse injury or ankles sprain/strain. Patient will be given Ultram to take in addition to her ibuprofen and will be instructed to place an Dc wrap for comfort. Patient be instructed to follow-up with her primary care physician for further management of her discomfort. DME note: Dc wrap applied to right ankle in order to assist in treatment of right ankle sprain Definitive disposition and diagnosis as appropriate pending reevaluation and review of above. 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 Musculoskeletal History: Reports: None Neurological History: Reports: None Psychiatric History: Reports: None Endocrine/Metabolic History: Reports: Obesity/BMI 30+ Hematologic History: Reports: None Immunologic History: Reports: None Oncologic (Cancer) History: Reports: None Dermatologic History: Reports: Other (See Below) Other Dermatologic History: MRSA abscess x2- head, abdomen - Infectious Disease History Infectious Disease History: Reports: None - Past Surgical History Head Surgeries/Procedures: Reports: None HEENT Surgical History: Reports: None Cardiovascular Surgical History: Reports: None Respiratory Surgical History: Reports: None GI Surgical History: Reports: None Female Surgical History: Reports: None Endocrine Surgical History: Reports: None Neurological Surgical History: Reports: None Musculoskeletal Surgical History: Reports: None Oncologic Surgical History: Reports: None Dermatological Surgical History: Reports: None Social & Family History - Family History Family Medical History: Noncontributory - Tobacco Use Smoking Status *Q: Current Every Day Smoker Years of Tobacco use: 15 Packs/Tins Daily: 0.5 - Caffeine Use Caffeine Use: Reports: None Caffeine Use Comment: 2-3 cans of soda/day - Recreational Drug Use Recreational Drug Use: No Review of Systems - Review of Systems Review Of Systems: See Below ED EXAM, GENERAL - Physical Exam Exam: See Below Course - Vital Signs Last Recorded V/S: Last Vital Signs Temp 97.8 F 06/27/20 21:36 Pulse 100 06/27/20 21:36 Resp 20 06/27/20 21:36 BP 120/80 06/27/20 21:36 Pulse Ox 98 06/27/20 21:36 - Orders/Labs/Meds Orders: Active Orders 24 hr Category Date Time Status Ankle Min 3V Lt [CR] Stat Exams 06/27/20 22:04 Stop Req Ankle Min 3V Rt [CR] Stat Exams 06/27/20 22:13 Ordered Meds: Medications Discontinued Medications Generic Name Dose Route Start Last Admin Trade Name Stoney PRN Reason Stop Dose Admin Tramadol HCl 50 mg 06/27/20 22:05 Ultram PO 06/27/20 22:06 ONETIME ONE Departure - Departure Time of Disposition: 22:42 Disposition: Home, Self-Care 01 Condition: Good Clinical Impression: Sprain of ankle, right - Discharge Information Instructions: Ankle Sprain, [id number], Elastic Bandage and RICE Therapy Referrals: PCP,None [Primary Care Provider] - Additional Instructions: The following information is given to patients seen in the emergency department who are being discharged to home. This information is to outline your options for follow-up care. We provide all patients seen in our emergency department with a follow-up referral. The need for follow-up, as well as the timing and circumstances, are variable depending upon the specifics of your emergency department visit. If you don't have a primary care physician on staff, we will provide you with a referral. We always advise you to contact your personal physician following an emergency department visit to inform them of the circumstance of the visit and for follow-up with them and/or the need for any referrals to a consulting specialist. The emergency department will also refer you to a specialist when appropriate. This referral assures that you have the opportunity for follow-up care with a specialist. All of these measure are taken in an effort to provide you with optimal care, which includes your follow-up. Under all circumstances we always encourage you to contact your private physician who remains a resource for coordinating your care. When calling for follow-up care, please make the office aware that this follow-up is from your recent emergency room visit. If for any reason you are refused follow-up, please contact the [facility] Emergency Department at and asked to speak to the emergency department charge nurse. Sepsis Event Note (ED) - Evaluation Sepsis Screening Result: No Definite Risk - Focused Exam Vital Signs: Vital Signs Temp Pulse Resp BP Pulse Ox 06/27/20 21:36 97.8 F 100 20 120/80 98 - My Orders Last 24 Hours: My Active Orders 06/27/20 22:04 Ankle Min 3V Lt [CR] Stat 06/27/20 22:13 Ankle Min 3V Rt [CR] Stat - Assessment/Plan Last 24 Hours: My Active Orders 06/27/20 22:04 Ankle Min 3V Lt [CR] Stat 06/27/20 22:13 Ankle Min 3V Rt [CR] Stat
--- NOTE | 2020-06-28 15:20 | CR ---
Right ankle: 3 views the right ankle were obtained. Comparison: No previous ankle study. Plantar spur is noted. Ankle mortise is symmetric. No discrete fracture or other bony abnormality is appreciated. Impression: 1. Plantar spur. 2. No acute osseous finding is seen on 3 view right ankle exam. Diagnostic code #2 Study was dictated in MDT
== END 2020-06-27 23:05 | disposition home or self-care (01) ==
LOC: MW.ED 20:44
DX: S93.401A Sprain of unspecified ligament of right ankle, initial encounter (principal); F17.210 Nicotine dependence, cigarettes, uncomplicated; E66.9 Obesity, unspecified; Z68.38 Body mass index [BMI] 38.0-38.9, adult
CPT/HCPCS: 73610; 99283; A9270

== ENCOUNTER 2020-12-24 08:43 | Emergency (ER) | payer SELFPAY ==
--- NOTE | 2020-12-24 09:12 | EDM.PDOC ---
ED HPI GENERAL MEDICAL PROBLEM - General Chief Complaint: Genitourinary Problem Stated Complaint: flank pain Time Seen by Provider: 12/24/20 09:11 Source of Information: Reports: Patient History Limitations: Reports: No Limitations - History of Present Illness INITIAL COMMENTS - FREE TEXT/NARRATIVE: 30-year-old female with left lower back pain that was radiating to her groin. Patient's pain started about a hour ago. Patient arrived to ED states she urinated and the pain is since resolved. Patient states the kidney stones believe this is similar. Patient denies any abdominal pain now nausea vomiting fever chills bloody urine or other concerning symptoms. 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 Musculoskeletal History: Reports: None Neurological History: Reports: None Psychiatric History: Reports: None Endocrine/Metabolic History: Reports: Obesity/BMI 30+ Hematologic History: Reports: None Immunologic History: Reports: None Oncologic (Cancer) History: Reports: None Dermatologic History: Reports: Other (See Below) Other Dermatologic History: MRSA abscess x2- head, abdomen - Infectious Disease History Infectious Disease History: Reports: Chicken Pox, Hepatitis non A,B,C - Past Surgical History Head Surgeries/Procedures: Reports: None HEENT Surgical History: Reports: None Cardiovascular Surgical History: Reports: None Respiratory Surgical History: Reports: None GI Surgical History: Reports: None Female Surgical History: Reports: None Endocrine Surgical History: Reports: None Neurological Surgical History: Reports: None Musculoskeletal Surgical History: Reports: None Oncologic Surgical History: Reports: None Dermatological Surgical History: Reports: None Social & Family History - Family History Family Medical History: No Pertinent Family History - Caffeine Use Caffeine Use: Reports: None Caffeine Use Comment: 2-3 cans of soda/day ED ROS GENERAL - Review of Systems Review Of Systems: See Below Constitutional: Reports: No Symptoms HEENT: Reports: No Symptoms Respiratory: Reports: No Symptoms Cardiovascular: Reports: No Symptoms Endocrine: Reports: No Symptoms GI/Abdominal: Reports: No Symptoms : Reports: No Symptoms Musculoskeletal: Reports: No Symptoms Skin: Reports: No Symptoms Neurological: Reports: No Symptoms Psychiatric: Reports: No Symptoms Hematologic/Lymphatic: Reports: No Symptoms Immunologic: Reports: No Symptoms ED EXAM, GI/ABD - Physical Exam Exam: See Below Exam Limited By: No Limitations General Appearance: Alert, WD/WN Respiratory/Chest: No Respiratory Distress, Lungs Clear Cardiovascular: Normal Peripheral Pulses, Regular Rate, Rhythm GI/Abdominal Exam: Normal Bowel Sounds, Soft, Non-Tender Back Exam: No: CVA Tenderness (L), CVA Tenderness (R) Extremities: Normal Inspection, Normal Range of Motion Neurological: Alert, Oriented Course - Vital Signs Last Recorded V/S: Last Vital Signs Temp 97.6 F 12/24/20 08:58 Pulse 113 H 12/24/20 08:58 Resp 18 12/24/20 08:58 BP 142/77 H 12/24/20 08:58 Pulse Ox 99 12/24/20 08:58 - Orders/Labs/Meds Labs: Laboratory Tests 12/24/20 12/24/20 12/24/20 Range/Units 08:54 08:54 09:22 WBC 9.07 (4.0-11.0) K/uL RBC 4.80 (4.30-5.90) M/uL Hgb 14.7 (12.0-16.0) g/dL Hct 43.4 (36.0-46.0) % MCV 90.4 (80.0-98.0) fL MCH 30.6 (27.0-32.0) pg MCHC 33.9 (31.0-37.0) g/dL RDW Std Deviation 45.4 (28.0-62.0) fl RDW Coeff of Boby 14 (11.0-15.0) % Plt Count 262 (150-400) K/uL MPV 10.80 (7.40-12.00) fL Neut % (Auto) 58.9 (48.0-80.0) % Lymph % (Auto) 27.5 (16.0-40.0) % [place] % (Auto) 12.3 (0.0-15.0) % Eos % (Auto) 1.1 (0.0-7.0) % Baso % (Auto) 0.2 (0.0-1.5) % Neut # (Auto) 5.3 (1.4-5.7) K/uL Lymph # (Auto) 2.5 H (0.6-2.4) K/uL [place] # (Auto) 1.1 H (0.0-0.8) K/uL Eos # (Auto) 0.1 (0.0-0.7) K/uL Baso # (Auto) 0.0 (0.0-0.1) K/uL Nucleated RBC % 0.0 /100WBC Nucleated RBCs # 0 K/uL Sodium (136-145) mmol/L Potassium (3.5-5.1) mmol/L Chloride (98-107) mmol/L Carbon Dioxide (21.0-32.0) mmol/L BUN (7.0-18.0) mg/dL Creatinine (0.6-1.0) mg/dL Est Cr Clr Drug Dosing mL/min Estimated GFR (MDRD) ml/min Glucose (74-106) mg/dL Calcium (8.5-10.1) mg/dL Total Bilirubin (0.2-1.0) mg/dL AST (15-37) IU/L ALT (14-63) IU/L Alkaline Phosphatase (46-116) U/L Total Protein (6.4-8.2) g/dL Albumin (3.4-5.0) g/dL Globulin (2.6-4.0) g/dL Albumin/Globulin Ratio (0.9-1.6) Urine Color YELLOW Urine Appearance HAZY Urine pH 6.5 (5.0-8.0) Ur Specific [place] >= 1.030 (1.001-1.035) Urine Protein NEGATIVE (NEGATIVE) mg/dL Urine Glucose (UA) NEGATIVE (NEGATIVE) mg/dL Urine Ketones NEGATIVE (NEGATIVE) mg/dL Urine Occult Blood LARGE H (NEGATIVE) Urine Nitrite NEGATIVE (NEGATIVE) Urine Bilirubin NEGATIVE (NEGATIVE) Urine Urobilinogen 0.2 (<2.0) EU/dL Ur Leukocyte Esterase NEGATIVE (NEGATIVE) Urine RBC 20-25 (0-2/HPF) Urine WBC 0-2 (0-5/HPF) Ur Epithelial Cells FEW (NONE-FEW) Urine Bacteria FEW (NEGATIVE) Urine Mucus LIGHT (NONE-MOD) Urine Yeast FEW Urine HCG, Qual NEGATIVE (NEGATIVE) 12/24/20 Range/Units 09:22 WBC (4.0-11.0) K/uL RBC (4.30-5.90) M/uL Hgb (12.0-16.0) g/dL Hct (36.0-46.0) % MCV (80.0-98.0) fL MCH (27.0-32.0) pg MCHC (31.0-37.0) g/dL RDW Std Deviation (28.0-62.0) fl RDW Coeff of Boby (11.0-15.0) % Plt Count (150-400) K/uL MPV (7.40-12.00) fL Neut % (Auto) (48.0-80.0) % Lymph % (Auto) (16.0-40.0) % [place] % (Auto) (0.0-15.0) % Eos % (Auto) (0.0-7.0) % Baso % (Auto) (0.0-1.5) % Neut # (Auto) (1.4-5.7) K/uL Lymph # (Auto) (0.6-2.4) K/uL [place] # (Auto) (0.0-0.8) K/uL Eos # (Auto) (0.0-0.7) K/uL Baso # (Auto) (0.0-0.1) K/uL Nucleated RBC % /100WBC Nucleated RBCs # K/uL Sodium 139 (136-145) mmol/L Potassium 3.8 (3.5-5.1) mmol/L Chloride 105 (98-107) mmol/L Carbon Dioxide 23.8 (21.0-32.0) mmol/L BUN 15 (7.0-18.0) mg/dL Creatinine 1.0 (0.6-1.0) mg/dL Est Cr Clr Drug Dosing 66.81 mL/min Estimated GFR (MDRD) > 60.0 ml/min Glucose 80 (74-106) mg/dL Calcium 8.7 (8.5-10.1) mg/dL Total Bilirubin 0.6 (0.2-1.0) mg/dL AST 39 H (15-37) IU/L ALT 81 H (14-63) IU/L Alkaline Phosphatase 69 (46-116) U/L Total Protein 8.2 (6.4-8.2) g/dL Albumin 4.1 (3.4-5.0) g/dL Globulin 4.1 H (2.6-4.0) g/dL Albumin/Globulin Ratio 1.0 (0.9-1.6) Urine Color Urine Appearance Urine pH (5.0-8.0) Ur Specific [place] (1.001-1.035) Urine Protein (NEGATIVE) mg/dL Urine Glucose (UA) (NEGATIVE) mg/dL Urine Ketones (NEGATIVE) mg/dL Urine Occult Blood (NEGATIVE) Urine Nitrite (NEGATIVE) Urine Bilirubin (NEGATIVE) Urine Urobilinogen (<2.0) EU/dL Ur Leukocyte Esterase (NEGATIVE) Urine RBC (0-2/HPF) Urine WBC (0-5/HPF) Ur Epithelial Cells (NONE-FEW) Urine Bacteria (NEGATIVE) Urine Mucus (NONE-MOD) Urine Yeast Urine HCG, Qual (NEGATIVE) - Re-Assessments/Exams Free Text/Narrative Re-Assessment/Exam: 12/24/20 10:13 Remains pain-free. Patient urine review labs. Patient will be discharged home. Departure - Departure Time of Disposition: 10:14 Disposition: Home, Self-Care 01 Condition: Good Clinical Impression: Kidney stone - Discharge Information *PRESCRIPTION DRUG MONITORING PROGRAM REVIEWED*: Not Applicable *COPY OF PRESCRIPTION DRUG MONITORING REPORT IN PATIENT ARABELLA: Not Applicable Instructions: Kidney Stones, [id number] Referrals: PCP,None [Primary Care Provider] - Forms: ED Department Discharge Additional Instructions: The following information is given to patients seen in the emergency department who are being discharged to home. This information is to outline your options for follow-up care. We provide all patients seen in our emergency department with a follow-up referral. The need for follow-up, as well as the timing and circumstances, are variable depending upon the specifics of your emergency department visit. If you don't have a primary care physician on staff, we will provide you with a referral. We always advise you to contact your personal physician following an emergency department visit to inform them of the circumstance of the visit and for follow-up with them and/or the need for any referrals to a consulting specialist. The emergency department will also refer you to a specialist when appropriate. This referral assures that you have the opportunity for follow-up care with a specialist. All of these measure are taken in an effort to provide you with optimal care, which includes your follow-up. Under all circumstances we always encourage you to contact your private physician who remains a resource for coordinating your care. When calling for follow-up care, please make the office aware that this follow-up is from your recent emergency room visit. If for any reason you are refused follow-up, please contact the [facility] Emergency Department at and asked to speak to the emergency department charge nurse. Please follow up with your primary care physician. If you do not have a primary care physician, see below: [facility] [address] [place] [address] [id number] [facility] [address] [place] [id number] [facility] - Urology [address] [place] [phone] Please follow-up with your primary care physician as needed. Psychiatric kidney stone today if he had any increased nausea vomiting bright red blood in your urine or difficulty urinating please return to the ED. Sepsis Event Note (ED) - Evaluation Sepsis Screening Result: No Definite Risk - Focused Exam Vital Signs: Vital Signs Temp Pulse Resp BP Pulse Ox 12/24/20 08:58 97.6 F 113 H 18 142/77 H 99 - Assessment/Plan Plan: Patient is a 30-year-old female who presents today for left lower back pain. Patient currently has no pain on exam no abdominal tenderness. Likely had a kidney stone will obtain urine labs and reassess.
[2020-12-24 10:10] LABS: BLOOD UREA NITROGEN,BUN 15 mg/dL (7.0-18.0); CARBON DIOXIDE,CO2 23.8 mmol/L (21.0-32.0); CHLORIDE,CL 105 mmol/L (98-107); GLUCOSE RANDOM 80 mg/dL (74-106); POTASSIUM,K 3.8 mmol/L (3.5-5.1); SODIUM,NA 139 mmol/L (136-145)
== END 2020-12-24 10:24 | disposition home or self-care (01) ==
LOC: MW.ED 08:43
DX: N20.0 Calculus of kidney (principal); E66.9 Obesity, unspecified; Z88.1 Allergy status to other antibiotic agents; Z68.38 Body mass index [BMI] 38.0-38.9, adult
CPT/HCPCS: 36415; 80053; 81001; 81025; 85025; 99282; 99283